=== PATIENT | male | born 1940 | race Caucasian/White ===

== ENCOUNTER 2018-03-27 14:06 | Emergency (ER) | payer MEDICARE ==
[~2018-03-27] VITALS: Ht 188 cm; Wt 118.1 kg
[~2018-03-27 14:06] MED LIST: ALLOPURINOL100 MG PO; AMIODARONE HCL200 MG PO; ASA81 MG PO; ASPIR 8181 MG PO; CARVEDILOL12.5 MG PO; CLOPIDOGREL75 MG PO; FUROSEMIDE40 MG PO; HYDROCODON-ACE1 EA11 PO; HYDROCODONE/AP1 EAC1 PO; ISOSORBIDE MONO60 MG PO; LISINOPRIL5 MG PO; MEXILETINE HCL150 MG PO; NAPROXEN500 M1 PO; NITROQUICK0.4 M1; NITROSTAT0.4 MG SL; PANTOPRAZOLE SO40 MG PO; POTASSIUM CHLO20 ME1 PO; SPIRONOLACTONE50 MG PO; TORSEMIDE10 MG; TORSEMIDE20 MG PO; Z.0.COREG12.5 MG PO; Z.0.FUROSEMIDE20 MG PO; Z.0.KLOR-CON20 MEQ; Z.0.LISINOPRIL20 MG PO; Z.0.PANTOPRAZOLE SO4; Z.0.PLAVIX75 MG PO; Z.0.RANEXA500 MG; Z.1.ALPRAZOLAM0.25 M; Z.1.ISOSORBIDE MONO6 PO; [UNRECOGNIZED DRUG - OTHER]; [UNRECOGNIZED DRUG - OTHER]
== END 2018-03-27 16:00 | disposition home or self-care (01) ==
LOC: FSED 14:06
DX: T16.2XXA Foreign body in left ear, initial encounter (principal); I10 Essential (primary) hypertension; I25.10 Atherosclerotic heart disease of native coronary artery without angina pectoris; I25.2 Old myocardial infarction; Z95.1 Presence of aortocoronary bypass graft; Z95.5 Presence of coronary angioplasty implant and graft; Z95.0 Presence of cardiac pacemaker
CPT/HCPCS: 99282

== ENCOUNTER → 2018-05-25 | Day surgery (SDC) | payer MEDICARE ==
[~2018-05-25] MED LIST changes: +FENTANYL CITRATE/PF 100MCG/2 ML INJ ONE; +MIDAZOLAM HCL 2 MG/2 ML VIAL ONE; +OR PHACO EYE KIT ONE; +PREOP PHACO EYE KIT ONE
== END | disposition home or self-care (01) ==
LOC: OR 11:49
PROVIDERS: ATTEND Ophthalmology
DX: H25.11 Age-related nuclear cataract, right eye (principal); Z79.02 Long term (current) use of antithrombotics/antiplatelets; I11.0 Hypertensive heart disease with heart failure; I50.9 Heart failure, unspecified; G47.33 Obstructive sleep apnea (adult) (pediatric); I25.2 Old myocardial infarction; I25.10 Atherosclerotic heart disease of native coronary artery without angina pectoris; K21.9 Gastro-esophageal reflux disease without esophagitis; N20.0 Calculus of kidney; F41.9 Anxiety disorder, unspecified; Z95.0 Presence of cardiac pacemaker; Z95.1 Presence of aortocoronary bypass graft; Z95.5 Presence of coronary angioplasty implant and graft
CPT/HCPCS: 66984; J2250; V2632

== ENCOUNTER → 2018-06-08 | Day surgery (SDC) | payer MEDICARE ==
[~2018-06-08] MED LIST changes: +HYDRALAZINE HCL 20 MG/ML VIAL ONE
== END | disposition home or self-care (01) ==
LOC: OR 09:52
PROVIDERS: ATTEND Ophthalmology
DX: H25.12 Age-related nuclear cataract, left eye (principal); I11.0 Hypertensive heart disease with heart failure; I50.30 Unspecified diastolic (congestive) heart failure; I25.810 Atherosclerosis of coronary artery bypass graft(s) without angina pectoris; G47.33 Obstructive sleep apnea (adult) (pediatric); E78.5 Hyperlipidemia, unspecified; I25.2 Old myocardial infarction; K21.9 Gastro-esophageal reflux disease without esophagitis; N20.0 Calculus of kidney; F17.210 Nicotine dependence, cigarettes, uncomplicated; Z79.82 Long term (current) use of aspirin; Z79.02 Long term (current) use of antithrombotics/antiplatelets; Z95.1 Presence of aortocoronary bypass graft; Z95.5 Presence of coronary angioplasty implant and graft; Z95.0 Presence of cardiac pacemaker
CPT/HCPCS: 66984; J0360; J2250

== ENCOUNTER 2018-12-31 16:53 | Emergency (ER) | payer MEDICARE ==
[~2018-12-31] VITALS: Ht 188 cm; Wt 117.9 kg
[~2018-12-31 16:53] MED LIST changes: -FENTANYL CITRATE/PF 100MCG/2 ML INJ ONE; -HYDRALAZINE HCL 20 MG/ML VIAL ONE; -MIDAZOLAM HCL 2 MG/2 ML VIAL ONE; -OR PHACO EYE KIT ONE; -PREOP PHACO EYE KIT ONE
--- OUTSIDE RECORDS SUMMARY | 2018-12-31 16:58 | XMS REPORT | Continuity of Care Document ---
Author Author [facility] Interface Address Unknown Phone Unavailable Problems Problem Status Onset Date Classification Date Reported Comments Source CHEST PAIN Active 09/08/2018 [facility] Presence of left artificial knee joint 12/14/2017 03/17/2018 [facility] [place] Z96.652 LEFT TOTAL KNEE REPLACEMENT Active 10/27/2017 [facility] [place] CAD/CMF Active 09/17/2017 [facility] UNK Active 08/10/2017 [facility] CHEST PAIN WITH EKG CHANGES Active 07/02/2016 [facility] Cardiomegaly Active 08/31/2015 Problem 03/27/2018 [facility] Chest pain Active 08/31/2015 Problem 03/27/2018 [facility] Dyspnea Active 08/31/2015 Problem 03/27/2018 [facility] 924.11CONTUSION OF KNEE, LEFT Active 02/16/2015 [facility] Discharge Diagnosis: Contusion of knee, right 02/12/2015 02/14/2015 [facility] Discharge Diagnosis: Abrasions of multiple sites 02/12/2015 02/14/2015 [facility] KNEE PAIN Active 02/10/2015 [facility] 413.9 Active 09/13/2014 [facility] 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 Problem 03/17/2018 [facility] [place] Chest pain on exertion Active Problem 03/17/2018 [facility] [place] Coronary artery disease Active Problem 03/17/2018 [facility] [place] GERD - Gastro-esophageal reflux disease Active Problem 03/17/2018 [facility] [place] Heart attack Resolved Problem 03/17/2018 [facility] [place] Heart failure Active Problem 03/17/2018 [facility] [place] Hypertension Active Problem 03/17/2018 [facility] [place] Premature ventricular contraction Resolved Problem 03/30/2015 [facility] [place] Sleep apnea<sup>1</sup> Active Problem 03/17/2018 uses CPAP [facility] [place] Stent placement<sup>2</sup> Resolved Problem 03/17/2018 x 5 [facility] [place] Pain in left knee 03/17/2018 [facility] [place] Muscle weakness 03/17/2018 [facility] [place] Stiffness of left knee, not elsewhere classified 03/17/2018 [facility] [place] Difficulty in walking, not elsewhere classified 03/17/2018 [facility] [place] Premature ventricular contraction Resolved Problem 03/17/2018 [facility] [place] BI KNEE Active [facility] [place] CHEST PAIN, UNSPECIFIED Active [facility] UNSTABLE ANGINA Active [facility] UNILATERAL PRIMARY OSTEOARTHRITIS, LEFT Active [facility] Medications Medication Details Route Status Patient Instructions Ordering Provider Order Date Source Aspirin 325 MG Enteric Coated Tablet 325 mg=1 tab, PO, BID, 0 Refill(s) Active 10/01/2017 [facility] Acetaminophen 325 MG / Hydrocodone Bitartrate 7.5 MG Oral Tablet [[place] 7.5/325] 1-2 tab, PO, Q6H, PRN Pain, X 14 day, # 50 tab, 0 Refill(s), given to patient Active 10/01/2017 [facility] dexamethasone (ANES) Route: IV, Drug form: INJ, ONCE, Stop date: 09/29/17 10:48:00 [employer] Inactive 09/29/2017 [facility] ondansetron (ANES) Route: IV, Drug form: INJ, ONCE, Stop date: 09/29/17 10:48:00 [employer] Inactive 09/29/2017 [facility] Plavix 75 mg, 1 tab, Route: PO, Drug form: TAB, Daily, Dosing Weight 118.182, kg, Start date: 09/29/17 9:00:00 [employer]ERIAL[employer], Duration: 30 day, Stop date: 10/29/17 8:59:00 CSTNotes: (Same As: Plavix) No Longer Active 09/29/2017 [facility] Lisinopril 2.5 mg, 0.5 tab, Route: PO, Drug form: TAB, Daily, Dosing Weight 118.182, kg, Start date: 09/29/17 9:00:00 [employer]ERIAL[employer] SCI[employer]IST, Duration: 30 day, Stop date: 10/29/17 8:59:00 CSTNotes: (Same as: Prinivil, Zestril) No Longer Active 09/29/2017 [facility] isosorbide mononitrate extended release 60 mg, 2 tab, Route: PO, Drug form: ERTAB, Daily, Dosing Weight 118.182, kg, Start date: 09/29/17 9:00:00 [employer]ERIAL[employer] SCI[employer], Duration: 30 day, Stop date: 10/29/17 8:59:00 S[employer]ERIAL[employer]IST No Longer Active 09/29/2017 [facility] Mexiletine 150 mg, 1 cap, Route: PO, Drug form: CAP, BID, Dosing Weight 118.182, kg, Start date: 09/28/17 21:00:00 [employer], Duration: 30 day, Stop date: 10/28/17 9:00:00 CSTNotes: (Same as: Mexitil) No Longer Active 09/29/2017 [facility] carvedilol 12.5 mg, 1 tab, Route: PO, Drug form: TAB, Q12H, Dosing Weight 118.182, kg, Start date: 09/28/17 21:00:00 [employer]ERIAL[employer] SCI[employer], Duration: 30 day, Stop date: 10/28/17 20:59:00 CSTNotes: Give with food. (Same As: Coreg) No Longer Active 09/29/2017 [facility] Aspirin 325 MG Enteric Coated Tablet 325 mg, 1 tab, Route: PO, Drug form: TAB, BID, Dosing Weight 118.182, kg, Start date: 09/28/17 17:00:00 S[employer]ERIAL[employer] SCI[employer]IST, Duration: 30 day, Stop date: 10/28/17 16:59:00 CSTNotes: Take with food. No Longer Active 09/28/2017 [facility] Docusate Sodium 100 MG Oral Capsule 100 mg, 1 cap, Route: PO, Drug form: CAP, BID, Dosing Weight 118.182, kg, Start date: 09/28/17 17:00:00 S[employer]ERIAL[employer] SCI[employer], Duration: 30 day, Stop date: 10/28/17 16:59:00 CSTNotes: (Same as: Colace) (Do Not Crush) No Longer Active 09/28/2017 [facility] pantoprazole 40 mg, 1 tab, Route: PO, Drug form: ECTAB, Before Dinner, Dosing Weight 118.182, kg, Start date: 09/28/17 16:30:00 [employer] SCI[employer], Duration: 30 day, Stop date: 10/27/17 16:30:00 CSTNotes: Tablet should not be c hewed or crushed. (Same as: Protonix) No Longer Active 09/28/2017 [facility] Cefazolin 1 gm, Route: IV, Q8H, Dosing Weight 118.182, kg, Start date: 09/28/17 16:00:00 [employer] SCI[employer]IST, Duration: 1 doses or times, Stop date: 09/28/17 23:59:00 [employer]ERIAL[employer] SCI[employer]IST, ABX Indication: Surgical ProphylaxisNotes: (Same As: Anc ef, Kefzol) MEDICATION WASTE Product Size: 1000 mg Product Wasted: ___ mg Inactive 09/28/2017 [facility] phenol topical 1.4% spray 1 spray, Route: TOP, PRN, Drug form: SPRY, PRN Sore Throat, Start date: 09/28/17 13:42:00 [employer], Duration: 30 day, Stop date: 10/28/17 13:41:00 CSTNotes: Chloraseptic [place] (Same as: Chloraseptic, Sore Throat [place]) WASTE: F/P - Black; E - Softricity Trash Bin No Longer Active 09/28/2017 [facility] Dilaudid 2 mg, 1 tab, Route: PO, Drug form: TAB, Q3H, PRN Pain Score 7-10, Start date: 09/28/17 10:48:00 [employer] SCI[employer], Duration: 30 day, Stop date: 10/28/17 10:47:00 CSTNotes: (Same as: Dilaudid) No Longer Active 09/28/2017 [facility] Acetaminophen 325 MG / Hydrocodone Bitartrate 7.5 MG Oral Tablet [Winside 7.5/325] 1 tab, Route: PO, Drug Form: TAB, Dosing Weight 118.182, kg, Q4H, PRN Pain Score 4-6, Start date: 09/28/17 9:40:00 [employer] SCI[employer], Duration: 30 day, Stop date: 10/28/17 9:39:00 CSTNotes: Same as W[place] 325-7.5mg Do not exceed 4gm/day of acetaminophen. No Longer Active 09/28/2017 [facility] Dulcolax Laxative 5 mg, 1 tab, Route: PO, Drug form: ECTAB, Q24H, Dosing Weight 118.182, kg, PRN Constipation, Start date: 09/28/17 9:40:00 [employer] SCI[employer], Duration: 30 day, Stop date: 10/28/17 9:39:00 CSTNotes: (Same As: Dulcolax, Correctol) (Do Not Crush) "Do Not Crush" No Longer Active 09/28/2017 [facility] Diphenhydramine 25 mg, 1 tab, Route: PO, Drug form: TAB, Q6H, Dosing Weight 118.182, kg, PRN Itching, Start date: 09/28/17 9:40:00 [employer] SCI[employer], Duration: 30 day, Stop date: 10/28/17 9:39:00 [employer] SCI[employer]IST No Longer Active 09/28/2017 [facility] Al hydroxide/Mg hydroxide/simethicone 200 mg-200 mg-20 mg/5 mL oral suspension 30 ml, Route: PO, Drug Form: SUSP, Dosing Weight 118.182, kg, Q4H, PRN Indigestion, Start date: 09/28/17 9:40:00 [employer] SCI[employer], Duration: 30 day, Stop date: 10/28/17 9:39:00 CSTNotes: (aluminum hydroxide-magnesium hyd- simethicone [id number]/5ml 30 ml ud NIA) No Longer Active 09/28/2017 [facility] Ondansetron 4 mg, 2 mL, Route: IVP, Drug form: INJ, Q8H, Dosing Weight 118.182, kg, PRN Nausea & Vomiting, Start date: 09/28/17 9:40:00 [employer] SCI[employer], Duration: 30 day, Stop date: 10/28/17 9:39:00 CSTNotes: (Same as: [place]) MEDICATION WASTE Product Size: 4 mg Product Wasted: ___ mg No Longer Active 09/28/2017 [facility] Acetaminophen 650 mg, 2 tab, Route: PO, Drug form: TAB, Q4H, Dosing Weight 118.182, kg, PRN Pain 1-3/Temp > 100.4 F, Start date: 09/28/17 9:40:00 [employer] SCI[employer], Duration: 30 day, Stop date: 10/28/17 9:39:00 CSTNotes: Do not exceed 4 gm/day. (Same as: Tylenol) No Longer Active 09/28/2017 [facility] Hydromorphone 0.5 mg, Route: IVP, Q3H, Dosing Weight 118.182, kg, PRN Pain Score 7-10, Start date: 09/28/17 9:40:00 [employer] SCI[employer], Duration: 30 day, Stop date: 10/28/17 9:39:00 [employer] SCI[employer]IST Inactive 09/28/2017 [facility] Lactated Ringers IV 1,000 mL 1,000 mL, Rate: 100 ml/hr, Infuse over: 10 hr, Route: IV, Dosing Weight 118.182 kg, Total Volume: 1,000, Start date: 09/28/17 9:40:00 [employer] SCI[employer], Duration: 30 day, Stop date: 10/28/17 9:39:00 [employer]ERIAL[employer] SCI[employer]IST, 2.5, m2 No Longer Active 09/28/2017 [facility] Tramadol 50 mg, 1 tab, Route: PO, Drug form: TAB, Q4H, Dosing Weight 118.182, kg, PRN Pain Score 4-6, Start date: 09/28/17 9:40:00 [employer] SCI[employer]IST, Duration: 30 day, Stop date: 10/28/17 9:39:00 S[employer]IOR [employer]ERIALS SCIENTIST, ..Notes: Not to exceed 400mg/day. (Same As: Ultram) No Longer Active 09/28/2017 [facility] Promethazine 6.25 mg, Route: IVPB, ONCE, Dosing Weight 118.182, kg, PRN Nausea & Vomiting, Start date: 09/28/17 9:34:00 [employer] SCI[employer]IST No Longer Active 09/28/2017 [facility] Hydromorphone 0.5 mg, Route: IVP, Q5Min, Dosing Weight 118.182, kg, PRN Pain Score 7-10, Start date: 09/28/17 9:34:00 S[employer] SCI[employer]IST, Duration: 4 doses or times, Stop date: Limited # of times No Longer Active 09/28/2017 [facility] Oxycodone 10 mg, Route: PO, Drug form: TAB, Q4H, Dosing Weight 118.182, kg, PRN Pain Score 7-10, Start date: 09/28/17 9:34:00 S[employer] SCI[employer]IST, Duration: 30 day, Stop date: 10/28/17 9:33:00 S[employer]ERIAL[employer] SCI[employer]IST No Longer Active 09/28/2017 [facility] Fentanyl 25 microgram, Route: IVP, Q5Min, Dosing Weight 118.182, kg, PRN Pain Score 4-6, Priority: Routine, Start date: 09/28/17 9:34:00 [employer] SCI[employer]IST, Duration: 4 doses or times, Stop date: Limited # of times No Longer Active 09/28/2017 [facility] Albuterol 0.83 MG/ML Inhalant Solution 2.49 mg, Route: NEB, Q20Min, Dosing Weight 118.182, kg, PRN Wheezing, Priority: Routine, Start date: 09/28/17 9:34:00 [employer] SCI[employer], Duration: 30 day, Stop date: 10/28/17 9:33:00 [employer]ERIAL[employer] SCI[employer]IST No Longer Active 09/28/2017 [facility] Naloxone 0.4 mg, Route: IVP, Q2MIN, Dosing Weight 118.182, kg, PRN Narcotic Reversal, Start date: 09/28/17 9:34:00 S[employer]ERIAL[employer] SCI[employer]IST, Duration: 8 doses or times, Stop date: Limited # of times No Longer Active 09/28/2017 [facility] Flumazenil 0.2 mg, Route: IVP, PRN, Dosing Weight 118.182, kg, PRN Benzodiazepine Reversal, Initial dose, Start date: 09/28/17 9:34:00 S[employer] SCI[employer]IST, Duration: 30 day, Stop date: 10/28/17 9:33:00 SENIOR MATERIALS SCIENTIST No Longer Active 09/28/2017 [facility] Ondansetron 4 mg, Route: IVP, ONCE, Dosing Weight 118.182, kg, PRN Nausea & Vomiting, Start date: 09/28/17 9:34:00 S[employer]ERIAL[employer] SCI[employer]IST No Longer Active 09/28/2017 [facility] Meperidine 12.5 mg, Route: IVP, Q30Min, Dosing Weight 118.182, kg, PRN Other -See Comment, For shivering, Start date: 09/28/17 9:34:00 S[employer]ERIAL[employer] SCI[employer]IST, Duration: 2 doses or times, Stop date: Limited # of times No Longer Active 09/28/2017 [facility] Diphenhydramine 12.5 mg, Route: IVP, Drug form: INJ, Q6H, Dosing Weight 118.182, kg, PRN Itching, Start date: 09/28/17 9:34:00 S[employer]ERIAL[employer] SCI[employer]IST, Duration: 30 day, Stop date: 10/28/17 9:33:00 S[employer]ERIAL[employer] SCI[employer]IST No Longer Active 09/28/2017 [facility] Acetaminophen 1,000 mg, Route: IV, ONCE, Dosing Weight 118.182, kg, PRN Pain Score 1-3, Start date: 09/28/17 9:34:00 S[employer]ERIAL[employer] SCI[employer]IST Inactive 09/28/2017 [facility] Labetalol 10 mg, Route: IVP, Q5Min, Dosing Weight 118.182, kg, PRN Elevated BP, Start date: 09/28/17 9:34:00 S[employer]ERIAL[employer] SCI[employer]IST, Duration: 5 doses or times, Stop date: Limited # of times No Longer Active 09/28/2017 [facility] Ketorolac 30 mg, Route: IVP, ONCE, Dosing Weight 118.182, kg, Start date: 09/28/17 9:34:00 S[employer]ERIALS SCI[employer]IST, Stop date: 09/28/17 9:34:00 SENIOR MATERIALS SCIENTIST No Longer Active 09/28/2017 [facility] Hydralazine 10 mg, Route: IVP, Q20Min, Dosing Weight 118.182, kg, PRN Elevated BP, Start date: 09/28/17 9:34:00 S[employer]IOR [employer]ERIALS SCI[employer]IST, Duration: 2 doses or times, Stop date: Limited # of times No Longer Active 09/28/2017 [facility] neostigmine (ANES) Route: IV, Drug form: INJ, ONCE, Stop date: 09/28/17 9:21:00 S[employer]IOR [employer]ERIALS SCI[employer]IST Inactive 09/28/2017 [facility] glycopyrrolate (ANES) Route: IV, Drug form: INJ, ONCE, Stop date: 09/28/17 9:21:00 S[employer]IOR MATERIALS SCI[employer]IST Inactive 09/28/2017 [facility] ondansetron (ANES) Route: IV, Drug form: INJ, ONCE, Stop date: 09/28/17 9:21:00 S[employer]IOR MATERIALS SCI[employer]IST Inactive 09/28/2017 [facility] rocuronium (ANES) Route: IV, Drug form: INJ, ONCE, Stop date: 09/28/17 8:12:00 SENIOR MATERIALS SCIENTIST Inactive 09/28/2017 [facility] propofol (ANES) Route: IV, Drug form: INJ, ONCE, Stop date: 09/28/17 8:12:00 SENIOR MATERIALS SCIENTIST Inactive 09/28/2017 [facility] fentaNYL (ANES) Route: IV, Drug form: INJ, ONCE, Stop date: 09/28/17 8:11:00 SENIOR MATERIALS SCIENTIST Inactive 09/28/2017 [facility] lidocaine (ANES) Route: IV, Drug form: INJ, ONCE, Stop date: 09/28/17 8:11:00 SENIOR MATERIALS SCIENTIST Inactive 09/28/2017 [facility] midazolam (ANES) Route: IV, Drug form: SOLN, ONCE, Stop date: 09/28/17 8:06:00 SENIOR MATERIALS SCIENTIST Inactive 09/28/2017 [facility] ceFAZolin (ANES) 1000 mg Route: IV, Drug form: INJ, Start date: 09/28/17 7:51:00 SENIOR MATERIALS SCIENTIST, Stop date: 09/28/17 8:51:00 SENIOR MATERIALS SCIENTIST Inactive 09/28/2017 [facility] Lactated Ringers Injection IV (ANES) 1000 mL Route: IV, Total Volume: 1,000, Start date: 09/28/17 7:37:00 SENIOR MATERIALS SCIENTIST, Stop date: 09/28/17 8:37:00 SENIOR MATERIALS SCIENTIST Inactive 09/28/2017 [facility] Amiodarone 200 mg, 0 Refill(s) Inactive 09/28/2017 [facility] Allopurinol 400 mg, 0 Refill(s) Inactive 09/28/2017 [facility] Calcium Chloride 0.0014 MEQ/ML / Potassium Chloride 0.004 MEQ/ML / Sodium Chloride 0.103 MEQ/ML / Sodium Lactate 0.028 MEQ/ML Injectable Solution 1,000 mL, Rate: 25 ml/hr, Infuse over: 40 hr, Route: IV, Dosing Weight 118.182 kg, Total Volume: 1,000, Start date: 09/28/17 7:13:00 S[employer]ERIALS SCI[employer]IST, Duration: 30 day, Stop date: 10/28/17 7:12:00 S[employer]IOR MATERIALS SCIENTIST, 2.5, m2 Inactive 09/28/2017 [facility] Sodium Chloride 0.9% IV 1000 mL 1,000 mL, Rate: 25 ml/hr, Infuse over: 40 hr, Route: IV, Dosing Weight 118.182 kg, Total Volume: 1,000, Start date: 09/28/17 7:13:00 S[employer]ERIALS SCI[employer]IST, Duration: 30 day, Stop date: 10/28/17 7:12:00 S[employer]IOR MATERIALS SCIENTIST, 2.5, m2 Inactive 09/28/2017 [facility] ropivacaine 100 mL, Route: InFILtration(local), Drug Form: INJ, Dosing Weight 118.182, kg, ONCALL, Start date: 09/28/17 7:00:00 SENIOR MATERIALS SCIENTIST, Duration: 1 doses or timesNotes: NOT FOR IV use Ropivacaine 5 mg/mL (4 9.25 mL) Epinephrine 1 mg/mL (0.5 mL) Clonidine 0.1 mg/mL (0.8 mL) Ketorolac 30 mg/mL (1 mL) Normal Saline 48.45 mL No Longer Active 09/28/2017 [facility] Allopurinol 100 Mg Tablet, 40 Mg Oral Daily Active 06/16/2017 [facility] Potassium Chloride 20 Meq Tab.er.prt, 20 Meq Oral Daily Active 06/16/2017 [facility] Carvedilol 12.5 Mg Tablet, 6.25 Mg Oral Twice A Day Active 06/13/2017 [facility] Furosemide 40 Mg Tablet, 120 Mg Oral Daily Active 06/13/2017 [facility] Naproxen 500 Mg Tablet.dr, 500 Mg Oral Twice A Day Active 06/13/2017 [facility] Benadryl 25 mg, 1 tab, Route: PO, Drug form: TAB, Q6H, Dosing Weight 118.182, kg, PRN as needed for itching, Start date: 02/03/17 3:05:00 CDT, Duration: 30 day, Stop date: 03/05/17 3:04:00 CDT Inactive 02/03/2017 [facility] Lisinopril 20 mg, 1 tab, Route: PO, Drug form: TAB, Daily, Dosing Weight 118.182, kg, Priority: NOW, Start date: 02/01/17 12:38:00 CDT, Duration: 30 day, Stop date: 03/03/17 9:00:00 CDTNotes: (Same as: Prinivil, Zestril) No Longer Active 02/01/2017 [facility] Labetalol 20 mg, 4 mL, Route: IVP, Drug form: INJ, Q2H, Dosing Weight 118.182, kg, PRN Hypertension, Start date: 02/01/17 12:36:00 CDT, Duration: 30 day, Stop date: 03/03/17 12:35:00 CDTNotes: (Same as: Normodyne, Trandate) Push over 2 minutes Give bolus over 2-3 minutes. No Longer Active 02/01/2017 [facility] torsemide 20 mg, 1 tab, Route: PO, Drug form: TAB, DOHO42P, Dosing Weight 118.182, kg, Start date: 02/01/17 9:00:00 CDT, Duration: 30 day, Stop date: 03/01/17 9:00:00 CDTNotes: (Same As: Demadex) No Longer Active 02/01/2017 [facility] Saline Flush 0.9% 10 ml, Route: IVP, Drug Form: INJ, Dosing Weight 118.182, kg, Q12H, Start date: 02/01/17 9:00:00 CDT, Duration: 30 day, Stop date: 03/02/17 21:00:00 CDTNotes: (Same as: BD Posiflush) No Longer Active 02/01/2017 [facility] potassium chloride 20 mEq, 1 tab, Route: PO, Drug form: ERTAB, Daily, Dosing Weight 118.182, kg, Start date: 02/01/17 9:00:00 CDT, Duration: 30 day, Stop date: 03/02/17 9:00:00 CDTNotes: (Same as: K-Dur 20) "Do Not Crush" With food and full glass of water No Longer Active 02/01/2017 [facility] Ranexa 1,000 mg, 2 tab, Route: PO, Drug form: TAB, BID, Dosing Weight 118.182, kg, Start date: 02/01/17 9:00:00 CDT, Duration: 30 day, Stop date: 03/02/17 17:00:00 CDTNotes: Same as Ranexa "Do Not Crush" No Longer Active 02/01/2017 [facility] pantoprazole 40 mg, 1 tab, Route: PO, Drug form: ECTAB, Daily, Dosing Weight 118.182, kg, Start date: 02/01/17 9:00:00 CDT, Duration: 30 day, Stop date: 03/02/17 9:00:00 CDTNotes: Tablet should not be chewed or c rushed. (Same as: Protonix) No Longer Active 02/01/2017 [facility] Mexiletine 150 mg, 1 cap, Route: PO, Drug form: CAP, BID, Dosing Weight 118.182, kg, Start date: 02/01/17 9:00:00 CDT, Duration: 30 day, Stop date: 03/02/17 17:00:00 CDTNotes: (Same as: Mexitil) No Longer Active 02/01/2017 [facility] Lisinopril 2.5 mg, 0.5 tab, Route: PO, Drug form: TAB, Daily, Dosing Weight 118.182, kg, Start date: 02/01/17 9:00:00 CDT, Duration: 30 day, Stop date: 03/02/17 9:00:00 CDTNotes: (Same as: Prinivil, Zestril) Inactive 02/01/2017 [facility] isosorbide mononitrate extended release 60 mg, 2 tab, Route: PO, Drug form: ERTAB, Daily, Dosing Weight 118.182, kg, Start date: 02/01/17 9:00:00 CDT, Duration: 30 day, Stop date: 03/02/17 9:00:00 CDTNotes: (Same as:Imdur) "Do Not Crush" Take on empty stomach/ full glass of water. Do not crush No Longer Active 02/01/2017 [facility] clopidogrel 75 mg, 1 tab, Route: PO, Drug form: TAB, Daily, Dosing Weight 118.182, kg, Start date: 02/01/17 9:00:00 CDT, Duration: 30 day, Stop date: 03/02/17 9:00:00 CDTNotes: (Same As: Plavix) No Longer Active 02/01/2017 [facility] carvedilol 6.25 mg, 2 tab, Route: PO, Drug form: TAB, Q12H, Dosing Weight 118.182, kg, Start date: 02/01/17 9:00:00 CDT, Duration: 30 day, Stop date: 03/02/17 21:00:00 CDTNotes: Give with food. (Same As: Coreg) No Longer Active 02/01/2017 [facility] aspirin 81 mg tablet, enteric coated 81 mg, 1 tab, Route: PO, Drug form: ECTAB, Daily, Dosing Weight 118.182, kg, Start date: 02/01/17 9:00:00 CDT, Duration: 30 day, Stop date: 03/02/17 9:00:00 CDTNotes: Do not crush or chew. (Same As: Ecotrin) No Longer Active 02/01/2017 [facility] sodium chloride 0.9% 1000 ml INJ 1,000 mL 1,000 mL, Rate: 75 ml/hr, Infuse over: 13.3 hr, Route: IV, Dosing Weight 118.182 kg, Total Volume: 1,000, Start date: 02/01/17 8:24:00 CDT, Duration: 30 day, Stop date: 03/03/17 8:23:00 CDT No Longer Active 02/01/2017 [facility] Acetaminophen 325 MG / Hydrocodone Bitartrate 7.5 MG Oral Tablet 1 tab, Route: PO, Drug Form: TAB, Dosing Weight 118.182, kg, Q4H, PRN Pain Score 4-6, Start date: 02/01/17 8:09:00 CDT, Duration: 30 day, Stop date: 03/03/17 8:08:00 CDTNotes: Same as [place] 325-7.5mg Do not exceed 4gm/day of acetaminophen. No Longer Active 02/01/2017 [facility] Benadryl 25 mg, 0.5 mL, Route: IVP, Drug form: INJ, ONCE, Dosing Weight 118.182, kg, PRN Itching, Start date: 02/01/17 5:25:00 CDTNotes: (Same as: Benadryl) Inactive 02/01/2017 [facility] Saline Flush 0.9% 10 ml, Route: IVP, Drug Form: INJ, Dosing Weight 118.182, kg, PRN, PRN Line Flush, Start date: 02/01/17 3:37:00 CDT, Duration: 30 day, Stop date: 03/03/17 3:36:00 CDTNotes: (Same as: BD Posiflush) No Longer Active 02/01/2017 [facility] Sodium Chloride 0.154 MEQ/ML Injectable Solution 1,000 mL, Rate: 75 ml/hr, Infuse over: 13.3 hr, Route: IV, Dosing Weight 118.182 kg, Total Volume: 1,000, Start date: 02/01/17 3:37:00 CDT, Duration: 30 day, Stop date: 03/03/17 3:36:00 CDT No Longer Active 02/01/2017 [facility] Ondansetron 4 mg, 1 tab, Route: PO, Drug form: TAB, Q8H, Dosing Weight 118.182, kg, PRN Nausea & Vomiting, Start date: 02/01/17 3:37:00 CDT, Duration: 30 day, Stop date: 03/03/17 3:36:00 CDTNotes: (Same as: Zofran) No Longer Active 02/01/2017 [facility] Morphine 2 mg, 1 mL, Route: IVP, Drug form: INJ, Q15Min, Dosing Weight 118.182, kg, PRN Chest Pain, Start date: 02/01/17 3:37:00 CDT, Duration: 2 doses or times, Stop date: Limited # of timesNotes: (Same as:M ORPhine Sulfate) No Longer Active 02/01/2017 [facility] Nitroglycerin 0.4 mg, 1 tab, Route: SL, Drug form: TAB, Q5Min, Dosing Weight 118.182, kg, PRN Chest Pain, Start date: 02/01/17 3:37:00 CDT, Duration: 3 doses or times, Stop date: Limited # of timesNotes: (Same as: Nitroquick, Nitrostat) "Do Not Crush" Sublingual tablet No Longer Active 02/01/2017 [facility] Aspirin 325 MG Oral Tablet 325 mg, 1 tab, Route: PO, Drug form: TAB, ONCE, Dosing Weight 118.182, kg, Start date: 02/01/17 3:37:00 CDT, Stop date: 02/01/17 3:37:00 CDTNotes: Take with food. Inactive 02/01/2017 [facility] Nitroglycerin 0.4 MG Sublingual Tablet 0.4 mg, 1 tab, Route: SL, Drug form: TAB, Q5Min, Dosing Weight 118.182, kg, PRN Chest Pain, Start date: 02/01/17 2:14:00 CDT, Duration: 30 day, Stop date: 03/03/17 2:13:00 CDTNotes: (Same as:Nitroquick, Nitrostat) "Do Not Crush" Sublingual tablet No Longer Active 02/01/2017 [facility] Morphine 2 mg, 1 mL, Route: IVP, Drug form: INJ, ONCE, Dosing Weight 118.182, kg, Priority: STAT, Start date: 02/01/17 2:12:00 CDT, Stop date: 02/01/17 2:12:00 CDTNotes: (Same as:MORPhine Sulfate) Inactive 02/01/2017 [facility] Ondansetron 4 mg, Route: IVP, Drug form: INJ, ONCE, Dosing Weight 118.182, kg, Priority: STAT, Start date: 02/01/17 0:17:00 CDT, Stop date: 02/01/17 0:17:00 CDT Inactive 02/01/2017 [facility] Morphine 4 mg, Route: IVP, ONCE, Dosing Weight 118.182, kg, Priority: STAT, Start date: 02/01/17 0:17:00 CDT, Stop date: 02/01/17 0:17:00 CDT Inactive 02/01/2017 [facility] Nitroglycerin 0.02 MG/MG Topical Ointment 1 inch, Route: TOP, Dosing Weight 118.182, kg, ONCE, STAT, Start date: 02/01/17 0:15:00 CDT, Stop date: 02/01/17 0:15:00 CDT Inactive 02/01/2017 [facility] Saline Flush 0.9% 10 mL, Route: IVP, Drug Form: INJ, Dosing Weight 118.182, kg, PRN, PRN Line Flush, Start date: 01/31/17 23:23:00 CDT, Duration: 30 day, Stop date: 03/02/17 23:22:00 CDTNotes: (Same as: BD Posiflush) No Longer Active 02/01/2017 [facility] Nitroglycerin 0.4 mg, 1 tab, Route: SL, Drug form: TAB, Q5Min, Dosing Weight 118.182, kg, PRN Chest Pain, Start date: 09/23/16 8:12:00 [employer] SCI[employer]IST, Duration: 3 doses or times, Stop date: Limited # of timesNotes: (Same as: Nitroquick, Nitrostat) "Do Not Crush" Sublingual tablet Inactive 09/23/2016 [facility] Morphine 4 mg, 2 mL, Route: IVP, Drug form: INJ, Q2H, Dosing Weight 118.182, kg, PRN Pain Score 7-10, Start date: 09/23/16 8:12:00 [employer]ERIALS SCI[employer]IST, Stop date: 10/23/16 8:11:00 CSTNotes: (Same as:MORPhine Sulfate) Inactive 09/23/2016 [facility] Sodium Chloride 0.154 MEQ/ML Injectable Solution 750 mL, Rate: 75 ml/hr, Infuse over: 10 hr, Route: IV, Dosing Weight 118.182 kg, Total Volume: 750, Start date: 09/23/16 8:12:00 S[employer]IOR [employer]ERIALS SCI[employer]IST, Duration: 10 hr, Stop date: 09/23/16 18:11:00 S[employer]IOR MATERIALS SCIENTIST Inactive 09/23/2016 [facility] 12 HR ranolazine 1000 MG Extended Release Tablet [Ranexa] 1,000 mg=1 tab, PO, BID, # 60 tab, 0 Refill(s) Active 09/23/2016 [facility] Amiodarone 200 mg, 1 tab, Route: PO, Drug form: TAB, Daily, Dosing Weight 118.182, kg, Start date: 09/22/16 20:00:00 [employer]ERIAL[employer] SCI[employer]IST, Duration: 30 day, Stop date: 10/21/16 20:00:00 CSTNotes: (Same as: Cordarone) No Longer Active 09/23/2016 [facility] pantoprazole 40 mg, 1 tab, Route: PO, Drug form: ECTAB, After Dinner, Dosing Weight 118.182, kg, Start date: 09/22/16 17:00:00 S[employer]IOR MATERIALS SCIENTIST, Duration: 30 day, Stop date: 10/21/16 17:00:00 CSTNotes: Tablet should not be ch ewed or crushed. (Same as: Protonix) No Longer Active 09/22/2016 [facility] torsemide 20 mg, 1 tab, Route: PO, Drug form: TAB, Daily, Dosing Weight 118.182, kg, Start date: 09/22/16 9:00:00 S[employer]ERIALS SCI[employer]IST, Duration: 30 day, Stop date: 10/21/16 9:00:00 CSTNotes: (Same As: Demadex) No Longer Active 09/22/2016 [facility] Mexiletine 150 mg, 1 cap, Route: PO, Drug form: CAP, BID, Dosing Weight 118.182, kg, Start date: 09/22/16 9:00:00 S[employer]ERIALS SCIENTIST, Duration: 30 day, Stop date: 10/21/16 17:00:00 CSTNotes: (Same as: Mexitil) No Longer Active 09/22/2016 [facility] Lisinopril 2.5 mg, 0.5 tab, Route: PO, Drug form: TAB, Daily, Dosing Weight 118.182, kg, Start date: 09/22/16 9:00:00 [employer]ERIAL[employer] SCI[employer]IST, Duration: 30 day, Stop date: 10/21/16 9:00:00 CSTNotes: (Same as: Prinivil, Zestril) No Longer Active 09/22/2016 [facility] isosorbide mononitrate extended release 60 mg, 2 tab, Route: PO, Drug form: ERTAB, Daily, Dosing Weight 118.182, kg, Start date: 09/22/16 9:00:00 S[employer]ERIAL[employer] SCI[employer]IST, Duration: 30 day, Stop date: 10/21/16 9:00:00 CSTNotes: (Same as:Imdur) "Do Not Crush" Take on empty stomach/ full glass of water. Do not crush No Longer Active 09/22/2016 [facility] clopidogrel 75 mg, 1 tab, Route: PO, Drug form: TAB, Daily, Dosing Weight 118.182, kg, Start date: 09/22/16 9:00:00 S[employer]IOR [employer]ERIALS SCI[employer]IST, Duration: 30 day, Stop date: 10/21/16 9:00:00 CSTNotes: (Same As: Plavix) No Longer Active 09/22/2016 [facility] carvedilol 6.25 mg, 0.5 tab, Route: PO, Drug form: TAB, Q12H, Dosing Weight 118.182, kg, Start date: 09/22/16 9:00:00 [employer]ERIAL[employer] SCI[employer]IST, Duration: 30 day, Stop date: 10/21/16 21:00:00 CSTNotes: Give with food. (Same As: Coreg) No Longer Active 09/22/2016 [facility] Aspirin 81 MG Enteric Coated Tablet 81 mg, 1 tab, Route: PO, Drug form: ECTAB, Daily, Dosing Weight 118.182, kg, Start date: 09/22/16 9:00:00 S[employer]IOR [employer]ERIALS SCIENTIST, Duration: 30 day, Stop date: 10/21/16 9:00:00 CSTNotes: Do not crush or chew. (Same As: Ecotrin) No Longer Active 09/22/2016 [facility] potassium chloride 20 mEq, 1 tab, Route: PO, Drug form: ERTAB, After Breakfast, Dosing Weight 118.182, kg, Start date: 09/22/16 8:30:00 S[employer]ERIALS SCIENTIST, Duration: 30 day, Stop date: 10/21/16 8:30:00 CSTNotes: (Same as: K-Dur 20) "Do Not Crush" With food and full glass of water No Longer Active 09/22/2016 [facility] Tramadol 50 mg, 1 tab, Route: PO, Drug form: TAB, Q6H, Dosing Weight 118.182, kg, PRN Pain Score 4-6, Start date: 09/21/16 21:22:00 [employer]ERIAL[employer] SCI[employer]IST, Duration: 30 day, Stop date: 10/21/16 21:21:00 CSTNotes: Not to exceed 400mg/day. (Same As: Ultram) No Longer Active 09/22/2016 [facility] Enoxaparin 40 mg, 0.4 mL, Route: SUB-Q, Drug form: INJ, [id number], Dosing Weight 118.182, kg, Start date: 09/21/16 14:00:00 [employer] SCI[employer]IST, Duration: 30 day, Stop date: 10/20/16 14:00:00 CSTNotes: (Same as: Lovenox) No Longer Active 09/21/2016 [facility] sodium chloride 0.9% 1000 ml INJ 1,000 mL 1,000 mL, Rate: 75 ml/hr, Infuse over: 13.3 hr, Route: IV, Dosing Weight 118.182 kg, Total Volume: 1,000, Start date: 09/21/16 13:47:00 [employer] SCI[employer]IST, Duration: 30 day, Stop date: 10/21/16 13:46:00 S[employer]IOR [employer]ERIAL[employer] SCIENTIST No Longer Active 09/21/2016 [facility] Acetaminophen 650 mg, 2 tab, Route: PO, Drug form: TAB, Q4H, Dosing Weight 118.182, kg, PRN Pain 1-3/Temp > 100.4 F, Start date: 09/21/16 11:43:00 S[employer]ERIALS SCI[employer]IST, Duration: 30 day, Stop date: 10/21/16 11:42:00 CSTNotes: Do not exceed 4 gm/day. (Same as: Tylenol) No Longer Active 09/21/2016 [facility] Morphine 2 mg, 1 mL, Route: IVP, Drug form: INJ, Q4H, Dosing Weight 118.182, kg, PRN Pain Score 7-10, Start date: 09/21/16 11:43:00 S[employer]ERIALS SCI[employer]IST, Duration: 30 day, Stop date: 10/21/16 11:42:00 CSTNotes: (Same as:MORPhine Sulfate) No Longer Active 09/21/2016 [facility] Ondansetron 4 mg, 2 mL, Route: IVP, Drug form: INJ, Q6H, Dosing Weight 118.182, kg, PRN Nausea & Vomiting, Start date: 09/21/16 11:43:00 S[employer]ERIALS SCIENTIST, Duration: 30 day, Stop date: 10/21/16 11:42:00 CSTNotes: (Same as: Zofran) MEDICATION WASTE Product Size: 4 mg Product Wasted: ___ mg No Longer Active 09/21/2016 [facility] Docusate 100 mg, 1 cap, Route: PO, Drug form: CAP, BID, Dosing Weight 118.182, kg, PRN Constipation, Start date: 09/21/16 11:43:00 S[employer]IOR [employer]ERIALS SCIENTIST, Duration: 30 day, Stop date: 10/21/16 11:42:00 CSTNotes: (Same as: Colace) (Do Not Crush) No Longer Active 09/21/2016 [facility] Morphine 4 mg, Route: IVP, ONCE, Dosing Weight 118.182, kg, Start date: 09/21/16 9:48:00 S[employer]IOR [employer]ERIALS SCIENTIST, Stop date: 09/21/16 9:48:00 SENIOR MATERIALS SCIENTIST Inactive 09/21/2016 [facility] Lovenox 120 mg, Route: SUB-Q, Drug form: INJ, ONCE, Dosing Weight 118.182, kg, Priority: STAT, Start date: 09/21/16 9:22:00 SENIOR MATERIALS SCIENTIST, Stop date: 09/21/16 9:22:00 SENIOR MATERIALS SCIENTIST Inactive 09/21/2016 [facility] Benadryl 12.5 mg, Route: IVP, ONCE, Dosing Weight 118.182, kg, Priority: STAT, Start date: 09/21/16 7:09:00 SENIOR MATERIALS SCIENTIST, Stop date: 09/21/16 7:09:00 SENIOR MATERIALS SCIENTIST Inactive 09/21/2016 [facility] Sodium Chloride 0.154 MEQ/ML Injectable Solution 500 mL, 500 ml/hr, Infuse Over: 1 hr, Route: IV, ONCE, Priority: STAT, Dosing Weight 118.182 kg, Start date: 09/21/16 7:09:00 SENIOR MATERIALS SCIENTIST, Duration: 1 doses or times, Stop date: 09/21/16 7:09:00 SENIOR MATERIALS SCIENTIST Inactive 09/21/2016 [facility] Morphine 4 mg, Route: IVP, ONCE, Dosing Weight 118.182, kg, Priority: STAT, Start date: 09/21/16 7:09:00 SENIOR MATERIALS SCIENTIST, Stop date: 09/21/16 7:09:00 SENIOR MATERIALS SCIENTIST Inactive 09/21/2016 [facility] Ondansetron 4 mg, Route: IVP, ONCE, Dosing Weight 118.182, kg, Priority: STAT, Start date: 09/21/16 7:09:00 SENIOR MATERIALS SCIENTIST, Stop date: 09/21/16 7:09:00 SENIOR MATERIALS SCIENTIST Inactive 09/21/2016 [facility] Nitroglycerin 0.4 mg, 1 tab, Route: SL, Drug form: TAB, Q5Min, Dosing Weight 118.182, kg, PRN Chest Pain, Start date: 09/21/16 7:09:00 S[employer]IOR MATERIALS SCIENTIST, Duration: 3 doses or times, Stop date: 10/21/16 0:00:00 CSTNotes: (Same a s:Nitroquick, Nitrostat) "Do Not Crush" Sublingual tablet No Longer Active 09/21/2016 [facility] Saline Flush 0.9% 10 mL, Route: IVP, Drug Form: INJ, Dosing Weight 118.182, kg, PRN, PRN Line Flush, Start date: 09/21/16 7:09:00 SENIOR MATERIALS SCIENTIST, Duration: 30 day, Stop date: 10/21/16 7:08:00 CSTNotes: (Same as: BD Posiflush) No Longer Active 09/21/2016 [facility] isosorbide mononitrate extended release 60 mg, 2 tab, Route: PO, Drug form: ERTAB, QAM, Dosing Weight 117.358, kg, Start date: 07/04/16 9:00:00 CDT, Duration: 30 day, Stop date: 08/02/16 9:00:00 CDTNotes: (Same as:Imdur) "Do Not Crush" Take on empty stomach/ full glass of water. Do not crush Inactive 07/04/2016 [facility] Plavix 75 mg, 1 tab, Route: PO, Drug form: TAB, Daily, Dosing Weight 117.358, kg, Start date: 07/04/16 9:00:00 CDT, Duration: 30 day, Stop date: 08/02/16 9:00:00 CDTNotes: (Same As: Plavix) Inactive 07/04/2016 [facility] Amiodarone 200 mg, 1 tab, Route: PO, Drug form: TAB, Daily, Dosing Weight 117.358, kg, Start date: 07/04/16 9:00:00 CDT, Duration: 30 day, Stop date: 08/02/16 9:00:00 CDTNotes: (Same as: Cordarone) Inactive 07/04/2016 [facility] pantoprazole 40 mg, 1 tab, Route: PO, Drug form: ECTAB, Before Breakfast, Dosing Weight 117.358, kg, Start date: 07/04/16 7:30:00 CDT, Duration: 30 day, Stop date: 08/02/16 7:30:00 CDTNotes: Tablet should not be chewed or crushed. (Same as: Protonix) Inactive 07/04/2016 [facility] carvedilol 12.5 mg, 1 tab, Route: PO, Drug form: TAB, Q12H, Dosing Weight 117.358, kg, Start date: 07/03/16 21:00:00 CDT, Duration: 30 day, Stop date: 08/02/16 9:00:00 CDTNotes: Give with food. (Same As: Coreg) No Longer Active 07/04/2016 [facility] Mexiletine 150 mg, 1 cap, Route: PO, Drug form: CAP, Q12H, Dosing Weight 117.358, kg, Start date: 07/03/16 21:00:00 CDT, Duration: 30 day, Stop date: 08/02/16 9:00:00 CDTNotes: (Same as: Mexitil) No Longer Active 07/04/2016 [facility] Vitamin A 3000 iu, PO, Daily, 0 Refill(s) Active 07/03/2016 [facility] mexiletine 150 mg oral capsule 150 mg=1 cap, PO, BID, 0 Refill(s) Active 07/03/2016 [facility] Vitamin D3 5000 intl units oral capsule 5,000 IntlUnit=1 cap, PO, Daily, # 30 cap, 1 Refill(s) Active 07/03/2016 [facility] AMIODarone 200 mg oral tablet 200 mg=1 tab, PO, Daily, patient takes this dose art 8pm, 0 Refill(s) Active 07/03/2016 [facility] Aspirin 81 MG Enteric Coated Tablet 81 mg=1 tab, PO, Daily, # 90 tab, 3 Refill(s) Active 07/03/2016 [facility] Diphenhydramine 25 mg, 1 tab, Route: PO, Drug form: TAB, Bedtime, Dosing Weight 117.358, kg, PRN Insomnia, Start date: 07/03/16 13:20:00 CDT, Duration: 30 day, Stop date: 08/02/16 13:19:00 CDT No Longer Active 07/03/2016 [facility] Acetaminophen 325 MG / Hydrocodone Bitartrate 5 MG Oral Tablet 1 tab, Route: PO, Drug Form: TAB, Dosing Weight 117.358, kg, Q4H, PRN Pain Score 4-6, Start date: 07/03/16 13:20:00 CDT, Duration: 30 day, Stop date: 08/02/16 13:19:00 CDTNotes: (Same as: Winside 325/5) Do not exceed 4gm/day of acetaminophen. No Longer Active 07/03/2016 [facility] Nitroglycerin 0.4 mg, 1 tab, Route: SL, Drug form: TAB, Q5Min, Dosing Weight 117.358, kg, PRN Chest Pain, Start date: 07/03/16 13:20:00 CDT, Duration: 3 doses or times, Stop date: Limited # of timesNotes: (Same as :Nitroquick, Nitrostat) "Do Not Crush" Sublingual tablet No Longer Active 07/03/2016 [facility] Morphine 4 mg, 2 mL, Route: IVP, Drug form: INJ, Q2H, Dosing Weight 117.358, kg, PRN Pain Score 7-10, Start date: 07/03/16 13:20:00 CDT, Duration: 30 day, Stop date: 08/02/16 13:19:00 CDTNotes: (Same as:MORPhine Sulfate) No Longer Active 07/03/2016 [facility] Sodium Chloride 0.154 MEQ/ML Injectable Solution 250 mL, 250 ml/hr, Infuse Over: 1 hr, Route: IV, 250, Drug form: INJ, ONCE, Dosing Weight 117.358 kg, Start date: 07/03/16 13:20:00 CDT, Duration: 1 doses or times, Stop date: 07/03/16 13:20:00 CDT Inactive 07/03/2016 [facility] Sodium Chloride 0.154 MEQ/ML Injectable Solution 250 mL, 250 ml/hr, Infuse Over: 1 hr, Route: IV, 250, Drug form: INJ, ONCALL, Priority: Routine, Dosing Weight 117.358 kg, Start date: 07/03/16 10:00:00 CDT, Duration: 1 doses or times Inactive 07/03/2016 [facility] Enoxaparin 40 mg, 0.4 mL, Route: SUB-Q, Drug form: INJ, [id number], Dosing Weight 117.358, kg, Start date: 07/03/16 10:00:00 CDT, Duration: 30 day, Stop date: 08/01/16 10:00:00 CDTNotes: (Same as: Lovenox) No Longer Active 07/03/2016 [facility] Sodium Chloride 0.154 MEQ/ML Injectable Solution 750 mL, Rate: 75 ml/hr, Infuse over: 10 hr, Route: IV, Dosing Weight 117.358 kg, Total Volume: 750, Start date: 07/03/16 9:03:00 CDT, Duration: 10 hr, Stop date: 07/03/16 19:02:00 CDT Inactive 07/03/2016 [facility] Saline Flush 0.9% 10 ml, Route: IVP, Drug Form: INJ, Dosing Weight 117.358, kg, Q12H, Start date: 07/03/16 9:00:00 CDT, Duration: 30 day, Stop date: 08/01/16 21:00:00 CDT Inactive 07/03/2016 [facility] Nitroglycerin 0.4 mg, 1 tab, Route: SL, Drug form: TAB, Q5Min, Dosing Weight 117.358, kg, PRN Chest Pain, Start date: 07/03/16 9:00:00 CDT, Duration: 3 doses or times, Stop date: Limited # of timesNotes: (Same as: Nitroquick, Nitrostat) "Do Not Crush" Sublingual tablet Inactive 07/03/2016 [facility] Benadryl 50 mg, 1 cap, Route: PO, Drug form: CAP, TID, Dosing Weight 117.358, kg, PRN Itching, give dose NOW, Start date: 07/03/16 7:49:00 CDT, Duration: 30 day, Stop date: 08/02/16 7:48:00 CDTNotes: (Same as: Benadryl) No Longer Active 07/03/2016 [facility] Nitroglycerin 0.02 MG/MG Topical Ointment 0.5 inch, Route: TOP, Drug Form: OINT, Dosing Weight 118.182, kg, TID, Start date: 07/03/16 6:00:00 CDT, Duration: 30 day, Stop date: 08/01/16 18:00:00 CDTNotes: 1 gram is approximately 1 inch of nitroglycerin ointment (20 mg NTG per gram) (Same as:Nitro-Bid) No Longer Active 07/03/2016 [facility] Aspirin 81 MG Enteric Coated Tablet 81 mg, 1 tab, Route: PO, Drug form: ECTAB, Q24H, Dosing Weight 118.182, kg, Start date: 07/03/16 3:00:00 CDT, Duration: 30 day, Stop date: 08/01/16 3:00:00 CDTNotes: Do not crush or chew. (Same As: Ecotrin) No Longer Active 07/03/2016 [facility] Saline Flush 0.9% 10 ml, Route: IVP, Drug Form: INJ, Dosing Weight 118.182, kg, PRN, PRN Line Flush, Start date: 07/03/16 2:54:00 CDT, Duration: 30 day, Stop date: 08/02/16 2:53:00 CDTNotes: (Same as: BD Posiflush) No Longer Active 07/03/2016 [facility] Acetaminophen 650 mg, 2 tab, Route: PO, Drug form: TAB, Q4H, Dosing Weight 118.182, kg, PRN Headache 1-5, Start date: 07/03/16 2:54:00 CDT, Duration: 30 day, Stop date: 08/02/16 2:53:00 CDTNotes: Do not exceed 4 g m/day. (Same as: Tylenol) No Longer Active 07/03/2016 [facility] Ondansetron 4 mg, 1 tab, Route: PO, Drug form: TAB, Q8H, Dosing Weight 118.182, kg, PRN Nausea & Vomiting, Start date: 07/03/16 2:54:00 CDT, Duration: 30 day, Stop date: 08/02/16 2:53:00 CDTNotes: (Same as: Zofran) Inactive 07/03/2016 [facility] Morphine 4 mg, 2 mL, Route: IVP, Drug form: INJ, Q2H, Dosing Weight 118.182, kg, PRN Pain Score 7-10, Start date: 07/03/16 2:54:00 CDT, Duration: 30 day, Stop date: 08/02/16 2:53:00 CDTNotes: (Same as:MORPhine Sulfate) Inactive 07/03/2016 [facility] Nitroglycerin 0.4 mg, 1 tab, Route: SL, Drug form: TAB, Q5Min, Dosing Weight 118.182, kg, PRN Chest Pain, Start date: 07/03/16 2:54:00 CDT, Duration: 3 doses or times, Stop date: Limited # of timesNotes: (Same as: Nitroquick, Nitrostat) "Do Not Crush" Sublingual tablet Inactive 07/03/2016 [facility] Nitroglycerin 0.02 MG/MG Topical Ointment 2 inch, Route: TOP, Drug Form: OINT, Dosing Weight 118.182, kg, ONCE, STAT, Start date: 07/03/16 0:20:00 CDT, Stop date: 07/03/16 0:20:00 CDTNotes: 1 gram is approximately 1 inch of nitroglycerin ointment (20 mg NTG per gram) (Same as:Nitro-Bid) Inactive 07/03/2016 [facility] Ondansetron 4 mg, Route: IVP, Drug form: INJ, ONCE, Dosing Weight 118.182, kg, Priority: STAT, Start date: 07/03/16 0:20:00 CDT, Stop date: 07/03/16 0:20:00 CDT Inactive 07/03/2016 [facility] Morphine 4 mg, Route: IVP, ONCE, Dosing Weight 118.182, kg, Priority: STAT, Start date: 07/03/16 0:20:00 CDT, Stop date: 07/03/16 0:20:00 CDT Inactive 07/03/2016 [facility] Hydrocodone Bit/Acetaminophen (Hydrocodon-Acetaminophen 5-325) 1 Each Tablet, 1 Tab Oral As Needed Active 08/31/2015 [facility] Ondansetron 4 MG Oral Tablet [Zofran] 4 mg=1 tab, PO, BID, PRN Nausea, # 20 tab, 0 Refill(s) Active 02/12/2015 [facility] tramadol hydrochloride 50 MG Oral Tablet 50 mg=1 tab, PO, Q4H, PRN pain, # 24 tab, 0 Refill(s) Active 02/12/2015 [facility] Zofran ODT 4 mg, Route: PO, Drug form: TABDIS, ONCE, Dosing Weight 77.273, kg, Priority: STAT, Start date: 02/12/15 6:11:00, Stop date: 02/12/15 6:11:00 Inactive 02/12/2015 [facility] Morphine 4 mg, Route: IM, Drug form: INJ, ONCE, Dosing Weight 77.273, kg, Priority: STAT, Start date: 02/12/15 6:08:00, Stop date: 02/12/15 6:08:00 Inactive 02/12/2015 [facility] Acetaminophen 325 MG / Hydrocodone Bitartrate 5 MG Oral Tablet [Winside 5/325] 1 tab, Route: PO, Drug Form: TAB, Dosing Weight 77.273, kg, ONCE, STAT, Start date: 02/12/15 6:08:00, Stop date: 02/12/15 6:08:00 Inactive 02/12/2015 [facility] Tramadol 50 mg, PO, Q4-6H, Pain, # 20 tab, 0 Refill(s) Active 09/25/2014 [facility] torsemide 20 mg oral tablet 20 mg=1 tab, PO, Daily, 0 Refill(s) Active 09/25/2014 [facility] pantoprazole 40 mg oral enteric coated tablet See Instructions, PO, 1 tab Daily, 0 Refill(s)Special Instructions: 1 tab Daily Active 09/25/2014 [facility] gabapentin 100 MG Oral Capsule [Neurontin] 300 mg=3 cap, PO, TID, 0 Refill(s) Active 09/25/2014 [facility] lisinopril 5 mg oral tablet 5 mg=1 tab, PO, Daily, 0 Refill(s) Active 09/25/2014 [facility] clopidogrel 75 mg oral tablet 75 mg=1 tab, PO, Daily, 0 Refill(s) Active 09/25/2014 [facility] Spironolactone 50 MG Oral Tablet [Aldactone] 50 mg=1 tab, PO, Daily, 0 Refill(s) Active 09/25/2014 [facility] Alprazolam 0.25 Mg Tablet, Active 02/12/2013 [facility] Buspirone Hcl 5 Mg Tablet, Active 02/12/2013 [facility] Pantoprazole Sodium 40 Mg Tablet., Active 02/12/2013 [facility] Ranolazine (Ranexa) 500 Mg Tab.sr.12h, Active 02/12/2013 [facility] Amiodarone Hcl 200 Mg Tablet Daily Active [facility] Aspirin (Aspir 81) 81 Mg Tablet. Daily Active [facility] Carvedilol 12.5 Mg Tablet Twice A Day Active [facility] Clopidogrel Bisulfate (Clopidogrel) 75 Mg Tablet Daily Active [facility] Isosorbide Mononitrate (Isosorbide Mononitrate Er) 60 Mg Tab.er.24h Daily Active [facility] Lisinopril 5 Mg Tablet Bedtime Active [facility] Mexiletine Hcl 150 Mg Capsule Twice A Day Active [facility] Nitroglycerin (Nitrostat) 0.4 Mg Tab.subl As Needed Active [facility] Pantoprazole Sodium (Protonix) 40 Mg Tablet. Twice A Day Active [facility] Torsemide 10 Mg Tablet Use As Directed Active TORSEMIDE 20 MG EVERY OTHER MORNING [facility] Allergies, Adverse Reactions, Alerts Substance Category Reaction Severity Reaction type Status Date Reported Comments Source morphine Assertion ITCH Mild Drug allergy Active [facility] Rita Immunizations Immunization Date Given Site Status Last Updated Comments Source diphtheria/pertussis, acel/tetanus adult 02/12/2015 Left deltoid completed [facility] Results Order Name Results Value Reference Range Date Interpretation Comments Source Chest 1view DX Chest 1view DX Clinical Indication: - chest pain Comparison: 09/17/2017 FINDINGS: AP chest radiograph was obtained. MEDIASTINUM: The cardiac silhouette is prominent. The aorta is unremarkable. 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 LUNGS: Lung volumes are maintained. There are no focal infiltrates or effusions. There are no pneumothoraces noted. BONES: The visualized osseous structures are unremarkable. IMPRESSION: No acute infiltrates or effusions. SL: [id number] 09/08/2018 - - Read by: Kandi Salazar MD Dictated Date/time: 09/08/18 02:39 Electronically Signed by: Kandi Salazar MD 09/08/18 02:40 FINAL REPORT [facility] Hct 33.6 % 42.0 - 54.0 10/01/2017 [facility] Hgb 11.5 g/dL 14.0 - 18.0 10/01/2017 [facility] Ext Lower Venous Doppler Unilat US Ext Lower Venous Doppler Unilat US Clinical Indication: - s/p tkr with swelling; Comparison: None TECHNIQUE: Sonographic evaluation of the left lower extremity veins was performed using high resolution B-mode imaging, along with pulse and color Doppler imaging. FINDINGS: Left lower extremity: The common femoral vein, superficial femoral vein, popliteal vein and visualized posterior tibial/calf veins are patent. Evaluation for augmentation at the popliteal vein is limited. There is no echogenic debris to suggest deep venous thrombosis. The saphenofemoral junction is unremarkable. IMPRESSION: No Deep Venous Thrombosis of the left leg. Soft tissue edema. SL: [id number] 09/30/2017 - - Read by: Devante Flynn MD Dictated Date/time: 09/30/17 16:31 Electronically Signed by: Devante Flynn MD 09/30/17 16:34 FINAL REPORT [facility] Hgb 11.8 g/dL 14.0 - 18.0 09/30/2017 [facility] Hct 34.2 % 42.0 - 54.0 09/30/2017 [facility] Hct 36.2 % 42.0 - 54.0 09/29/2017 [facility] Hgb 12.5 g/dL 14.0 - 18.0 09/29/2017 [facility] BLOOD BANK RESULTS Antibody Scrn Negative (09/28/17 6:22 AM) 09/28/2017 [facility] BLOOD BANK RESULTS ABO/Rh O POS 09/28/2017 [facility] Knee 1-2 Views unilateral DX Knee 1-2 Views unilateral DX Patient Name: LAURA HORNE : 1940; Age: 77 years y/o Male MR: [id number] Study: 2 view examination of the left knee dated 09/28/2017. 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 Surgical clips seen about the medial soft tissues of the left knee. Vascular calcification seen about the left knee. Air in the anterior soft tissues of the left knee and left knee joint felt to be related to the recent surgery. Mild spurring is seen at the distal quadriceps tendon insertion site on the patella. No fracture or dislocation. SL: [id number] 09/28/2017 - - Read by: Nic Romano MD Dictated Date/time: 09/28/17 10:30 Electronically Signed by: Nic Romano MD 09/28/17 10:31 FINAL REPORT [facility] BLOOD [facility] RESULTS Antibody Scrn Negative (09/17/17 9:39 AM) 09/17/2017 [facility] [facility] RESULTS ABO/Rh O POS 09/17/2017 [facility] CHEM PANEL A/G Ratio 1.2 0.7 - 1.6 09/17/2017 [facility] CHEM PANEL B/C Ratio 12 6 - 25 09/17/2017 [facility] CHEM PANEL Globulin 3.3 g/dL 2.7 - 4.2 09/17/2017 [facility] CHEM PANEL AGAP 11.1 meq/L 10.0 - 20.0 09/17/2017 [facility] CHEM PANEL eGFR 52 mL/min/1.73m2 09/17/2017 Result Comment: The eGFR is calculated using the CKD-EPI formula. In most young, healthy individuals the eGFR will be >90 mL/min/1.73m2. The eGFR declines with age. An eGFR of 60-89 may be normal in some populations, particularly the elderly, for whom the CKD-EPI formula has not been extensively validated. Use of the eGFR is not recommended in the following populations: Individuals with unstable creatinine concentrations, including patients and those with serious co-morbid conditions. Patients with extremes in muscle mass or diet. The data above are obtained from the National Kidney Disease Education Program (NKDEP) which additionally recommends that when the eGFR is used in patients with extremes of body mass index for purposes of drug dosing, the eGFR should be multiplied by the estimated BMI. [facility] CHEM PANEL Alk Phos 99 unit/L 39 - 136 09/17/2017 [facility] CHEM PANEL ALT 23 unit/L 0 - 65 09/17/2017 [facility] CHEM PANEL AST 11 unit/L 0 - 37 09/17/2017 [facility] CHEM PANEL Bili Total 0.6 mg/dL 0.2 - 1.3 09/17/2017 [facility] CHEM PANEL Calcium Lvl 8.6 mg/dL 8.5 - 10.5 09/17/2017 [facility] CHEM PANEL CO2 30 meq/L 24 - 32 09/17/2017 [facility] CHEM PANEL Albumin Lvl 3.9 g/dL 3.5 - 5.0 09/17/2017 [facility] CHEM PANEL Total Protein 7.2 g/dL 6.4 - 8.4 09/17/2017 [facility] CHEM PANEL Creatinine Lvl 1.29 mg/dL 0.50 - 1.40 09/17/2017 [facility] CHEM PANEL BUN 15 mg/dL 7 - 22 09/17/2017 [facility] CHEM PANEL Chloride Lvl 104 meq/L 95 - 109 09/17/2017 [facility] CHEM PANEL Potassium Lvl 4.1 meq/L 3.5 - 5.1 09/17/2017 [facility] CHEM PANEL Glucose Lvl 110 mg/dL 70 - 99 09/17/2017 [facility] CHEM PANEL Sodium Lvl 141 meq/L 135 - 145 09/17/2017 [facility] HEMATOLOGY PT 13.1 s 12.0 - 14.7 09/17/2017 [facility] HEMATOLOGY PTT 31.3 s 22.9 - 35.8 09/17/2017 [facility] HEMATOLOGY INR 0.99 0.85 - 1.17 09/17/2017 [facility] MPV 8.0 fL 7.4 - 10.4 09/17/2017 [facility] HEMATOLOGY RDW 14.1 % 11.5 - 14.5 09/17/2017 [facility] MCHC 34.2 g/dL 32.0 - 36.0 09/17/2017 [facility] Platelet 161 K/CMM 133 - 450 09/17/2017 [facility] MCV 97.0 fL 80.0 - 94.0 09/17/2017 [facility] HEMATOLOGY MCH 33.1 pg 27.0 - 31.0 09/17/2017 [facility] HEMATOLOGY RBC 4.38 M/CMM 4.70 - 6.10 09/17/2017 [facility] HEMATOLOGY WBC 6.4 K/CMM 3.7 - 10.4 09/17/2017 [facility] HEMATOLOGY Eosinophils # 0.2 K/CMM 0.0 - 0.5 09/17/2017 [facility] HEMATOLOGY Segs 74.6 % 45.0 - 75.0 09/17/2017 [facility] HEMATOLOGY Monocytes 7.7 % 2.0 - 12.0 09/17/2017 [facility] HEMATOLOGY Lymphocytes 14.3 % 20.0 - 40.0 09/17/2017 [facility] HEMATOLOGY Monocytes # 0.5 K/CMM 0.0 - 0.8 09/17/2017 [facility] HEMATOLOGY Lymphocytes # 0.9 K/CMM 1.0 - 5.5 09/17/2017 [facility] HEMATOLOGY Segs-Bands # 4.7 K/CMM 1.5 - 8.1 09/17/2017 [facility] HEMATOLOGY Basophils 0.4 % 0.0 - 1.0 09/17/2017 [facility] HEMATOLOGY Eosinophils 3.0 % 0.0 - 4.0 09/17/2017 [facility] IMMUNOLOGY HIV Ag/Ab 4th Gen Negative *NA* (09/17/17 9:39 AM) Negative 09/17/2017 [facility] URINE AND STOOL UA Urobilinogen <=1.0 mg/dL 0.1 - 1.0 09/17/2017 [facility] URINE AND STOOL UA Sq Epi None Seen 09/17/2017 [facility] URINE AND STOOL UA RBC null 0 - 2 09/17/2017 [facility] URINE AND STOOL UA Blood Negative (09/17/17 9:39 AM) Negative 09/17/2017 [facility] URINE AND STOOL UA WBC null 0 - 5 09/17/2017 [facility] URINE AND STOOL UA Leuk Est Negative (09/17/17 9:39 AM) Negative 09/17/2017 [facility] URINE AND STOOL UA Nitrite Negative (09/17/17 9:39 AM) Negative 09/17/2017 [facility] URINE AND STOOL UA Ketones Negative mg/dL Negative mg/dL 09/17/2017 [facility] URINE AND STOOL UA Bili Negative *NA* (09/17/17 9:39 AM) Negative 09/17/2017 [facility] URINE AND STOOL UA Glucose Negative mg/dL Negative mg/dL 09/17/2017 [facility] URINE AND STOOL UA Protein Negative mg/dL Negative mg/dL 09/17/2017 [facility] URINE AND STOOL UA pH 6.0 5.0 - 8.0 09/17/2017 [facility] URINE AND STOOL UA Spec Grav 1.014 <=1.030 09/17/2017 [facility] URINE AND STOOL UA Turbidity Clear (09/17/17 9:39 AM) Clear 09/17/2017 [facility] URINE AND STOOL UA Color Yellow *NA* (09/17/17 9:39 AM) Yellow 09/17/2017 [facility] BLOOD BANK RESULTS RBC product Product available 1 (09/17/17 8:51 AM) 09/17/2017 Result Comment: 09/28/2017 07:36 [id number] notified Eliel blood is ready for pickup [facility] Bone length scanogram DX Bone length scanogram DX Bone length scanogram DX CLINICAL HISTORY: - AP of the femur and AP of the tibia, left side, full length FINDINGS/IMPRESSION: AP view of the femur, tibia and fibula reveals mild degenerative change at the left hip joint. Mild degenerative change is also noted at the left knee joint with decrease in joint space height in the medial compartment. No significant valgus or varus deformity is noted. There are surgical clips noted in the soft tissues medially at the left knee. SL: [id number] 09/17/2017 - - Read by: Gino Baer MD Dictated Date/time: 09/17/17 13:03 Electronically Signed by: Gino Baer MD 09/17/17 13:05 FINAL REPORT [facility] Chest 2 views DX Chest 2 views DX Clinical Indication: Coughing - preop exam Comparison: February 01, 2017 FINDINGS: The PA and lateral chest radiographs shows normal lung volumes without interstitial or airspace opacities, pleural effusions or pneumothorax. There is left chest wall intracardiac device in place. The heart size and pulmonary vasculature are normal. The trachea is midline. There are no clinically significant osseous abnormalities noted. There are sternal wires in stable position. IMPRESSION: No chest radiographic evidence of acute cardiopulmonary disease. SL: [id number] 09/17/2017 - - Read by: Gurdeep Oconnor MD Dictated Date/time: 09/17/17 11:22 Electronically Signed by: Gurdeep Oconnor MD 09/17/17 11:22 FINAL REPORT [facility] Knee 3 views DX Knee 3 views DX Exam: Left Knee 3 views DX Clinical Indication: - AP lateral and merchant view of the operative knee. Comparison: None FINDINGS: Frontal, lateral and sunrise views of the left knee were obtained. There is no fracture or dislocation. There is mild narrowing of the medial compartment. There is mild to moderate narrowing of the patellofemoral compartment. There are small marginal osteophytes of all 3 compartments. There is no knee region soft tissue swelling. There is no joint effusion. Surgical clips are seen within the soft tissues of the knee medial knee region. There are arterial vascular calcifications. If there is further concern, recommend follow-up radiographs or MRI for complete assessment. 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 SL: [id number] 09/17/2017 - - Read by: Mary Villalpando MD Dictated Date/time: 09/17/17 13:21 Electronically Signed by: Mary Villalpando MD 09/17/17 13:24 FINAL REPORT [facility] Automated blood basophil count (count/volume) Automated blood basophil count (count/volume) 0.0 0.0 - 0.1 06/16/2017 [facility] Automated blood basophil count as percentage of total leukocytes Automated blood basophil count as percentage of total leukocytes 0.1 0.0 - 1.0 06/16/2017 [facility] Automated blood eosinophil count Automated blood eosinophil count 0.0 0.0 - 0.4 06/16/2017 [facility] Automated blood eosinophil count as percentage of total leukocytes Automated blood eosinophil count as percentage of total leukocytes 0.0 0.0 - 6.0 06/16/2017 [facility] Automated blood hematocrit (volume fraction) Automated blood hematocrit (volume fraction) 43.1 38.2 - 49.6 06/16/2017 [facility] Automated blood lymphocyte count as percentage ot total leukocytes Automated blood lymphocyte count as percentage ot total leukocytes 3.5 18.0 - 39.1 06/16/2017 [facility] Automated blood monocyte count as percentage of total leukocytes Automated blood monocyte count as percentage of total leukocytes 2.9 4.4 - 11.3 06/16/2017 [facility] Automated blood neutrophil count Automated blood neutrophil count 13.1 2.1 - 6.9 06/16/2017 [facility] Automated blood platelet count (count/volume) Automated blood platelet count (count/volume) 173 140 - 360 06/16/2017 [facility] Automated blood segmented neutrophil count as percentage of total leukocytes Automated blood segmented neutrophil count as percentage of total leukocytes 92.9 38.7 - 80.0 06/16/2017 [facility] Automated erythrocyte mean corpuscular hemoglobin (mass per erythrocyte) Automated erythrocyte mean corpuscular hemoglobin (mass per erythrocyte) 32.5 28 - 32 06/16/2017 [facility] Automated erythrocyte mean corpuscular hemoglobin concentration measurement (mass/volume) Automated erythrocyte mean corpuscular hemoglobin concentration measurement (mass/volume) 34.1 31 - 35 06/16/2017 [facility] Automated erythrocyte mean corpuscular volume Automated erythrocyte mean corpuscular volume 95.4 81 - 99 06/16/2017 [facility] Blood erythrocytes automated count (number/volume) Blood erythrocytes automated count (number/volume) 4.52 4.3 - 5.7 06/16/2017 [facility] Blood hemoglobin measurement (moles/volume) Blood hemoglobin measurement (moles/volume) 14.7 14.0 - 18.0 06/16/2017 [facility] Blood leukocytes automated count (number/volume) Blood leukocytes automated count (number/volume) 14.09 4.8 - 10.8 06/16/2017 [facility] Blood lymphocytes count (number/volume) Blood lymphocytes count (number/volume) 0.5 1.0 - 3.2 06/16/2017 [facility] Blood monocytes automated count (number/volume) Blood monocytes automated count (number/volume) 0.4 0.2 - 0.8 06/16/2017 [facility] Estimated glomerular filtration rate (GFR) determination Estimated glomerular filtration rate (GFR) determination 56 60 06/16/2017 [facility] Glucose measurement Glucose measurement 152 74 - 118 06/16/2017 [facility] Serum or plasma anion gap Serum or plasma anion gap 17.3 8 - 16 06/16/2017 [facility] Serum or plasma calcium measurement (mass/volume) Serum or plasma calcium measurement (mass/volume) 9.5 8.4 - 10.2 06/16/2017 [facility] Serum or plasma carbon dioxide, total measurement (moles/volume) Serum or plasma carbon dioxide, total measurement (moles/volume) 22 22 - 29 06/16/2017 [facility] Serum or plasma chloride measurement (moles/volume) Serum or plasma chloride measurement (moles/volume) 106 98 - 107 06/16/2017 [facility] Serum or plasma creatinine measurement (mass/volume) Serum or plasma creatinine measurement (mass/volume) 1.24 0.72 - 1.25 06/16/2017 [facility] Serum or plasma potassium measurement (moles/volume) Serum or plasma potassium measurement (moles/volume) 4.3 3.5 - 5.1 06/16/2017 [facility] Serum or plasma sodium measurement (moles/volume) Serum or plasma sodium measurement (moles/volume) 141 136 - 145 06/16/2017 [facility] Serum or plasma urea nitrogen measurement (mass/volume) Serum or plasma urea nitrogen measurement (mass/volume) 28 7 - 26 06/16/2017 [facility] Serum or plasma urea nitrogen/creatinine mass ratio Serum or plasma urea nitrogen/creatinine mass ratio 23 6 - 25 06/16/2017 [facility] Red Cell Distribution Width 13.0 11.7 - 14.4 06/16/2017 [facility] IM GRANULOCYTES % 0.6 0.0 - 1.0 06/16/2017 [facility] Absolute Immature Granulocyte (auto 0.09 0 - 0.1 06/16/2017 [facility] B-Type Natriuretic Peptide 155.8 0 - 100 06/15/2017 [facility] Plasma globulin measurement (mass/volume) Plasma globulin measurement (mass/volume) 2.9 2.3 - 3.5 06/14/2017 [facility] Serum or plasma alanine aminotransferase measurement (enzymatic activity/volume) Serum or plasma alanine aminotransferase measurement (enzymatic activity/volume) 16 0 - 55 06/14/2017 [facility] Serum or plasma albumin measurement (mass/volume) Serum or plasma albumin measurement (mass/volume) 3.5 3.5 - 5.0 06/14/2017 [facility] Serum or plasma albumin/globulin mass ratio Serum or plasma albumin/globulin mass ratio 1.2 0.8 - 2.0 06/14/2017 [facility] Serum or plasma alkaline phosphatase measurement (enzymatic activity/volume) Serum or plasma alkaline phosphatase measurement (enzymatic activity/volume) 87 40 - 150 06/14/2017 [facility] Serum or plasma protein measurement (mass/volume) Serum or plasma protein measurement (mass/volume) 6.4 6.5 - 8.1 06/14/2017 [facility] Serum or plasma total bilirubin measurement (mass/volume) Serum or plasma total bilirubin measurement (mass/volume) 0.7 0.2 - 1.2 06/14/2017 [facility] Aspartate Amino Transf (AST/SGOT) 13 5 - 34 06/14/2017 [facility] Serum or plasma uric acid measurement (mass/volume) Serum or plasma uric acid measurement (mass/volume) 6.8 3.5 - 7.2 06/13/2017 [facility] CHEM PANEL eGFR 52 mL/min/1.73m2 02/03/2017 Result Comment: The eGFR is calculated using the CKD-EPI formula. In most young, healthy individuals the eGFR will be >90 mL/min/1.73m2. The eGFR declines with age. An eGFR of 60-89 may be normal in some populations, particularly the elderly, for whom the CKD-EPI formula has not been extensively validated. Use of the eGFR is not recommended in the following populations: Individuals with unstable creatinine concentrations, including patients and those with serious co-morbid conditions. Patients with extremes in muscle mass or diet. The data above are obtained from the National Kidney Disease Education Program (NKDEP) which additionally recommends that when the eGFR is used in patients with extremes of body mass index for purposes of drug dosing, the eGFR should be multiplied by the estimated BMI. [facility] CHEM PANEL Bili Total 0.7 mg/dL 0.2 - 1.3 02/03/2017 [facility] CHEM PANEL AST 17 unit/L 0 - 37 02/03/2017 [facility] CHEM PANEL Alk Phos 101 unit/L 39 - 136 02/03/2017 [facility] CHEM PANEL ALT 26 unit/L 0 - 65 02/03/2017 [facility] CHEM PANEL Albumin Lvl 3.7 g/dL 3.5 - 5.0 02/03/2017 [facility] CHEM PANEL A/G Ratio 1.0 0.7 - 1.6 02/03/2017 [facility] CHEM PANEL Globulin 3.7 g/dL 2.7 - 4.2 02/03/2017 [facility] CHEM PANEL Total Protein 7.4 g/dL 6.4 - 8.4 02/03/2017 [facility] CHEM PANEL AGAP 16.1 meq/L 10.0 - 20.0 02/03/2017 [facility] CHEM PANEL CO2 22 meq/L 24 - 32 02/03/2017 [facility] CHEM PANEL Calcium Lvl 8.1 mg/dL 8.5 - 10.5 02/03/2017 [facility] CHEM PANEL B/C Ratio 16 6 - 25 02/03/2017 [facility] CHEM PANEL Sodium Lvl 138 meq/L 135 - 145 02/03/2017 [facility] CHEM PANEL Chloride Lvl 104 meq/L 95 - 109 02/03/2017 [facility] CHEM PANEL Potassium Lvl 4.1 meq/L 3.5 - 5.1 02/03/2017 [facility] CHEM PANEL Creatinine Lvl 1.30 mg/dL 0.50 - 1.40 02/03/2017 [facility] CHEM PANEL BUN 21 mg/dL 7 - 22 02/03/2017 [facility] CHEM PANEL Glucose Lvl 98 mg/dL 70 - 99 02/03/2017 [facility] HEMATOLOGY Lymphocytes # 1.4 K/CMM 1.0 - 5.5 02/03/2017 [facility] HEMATOLOGY Eosinophils # 0.1 K/CMM 0.0 - 0.5 02/03/2017 [facility] HEMATOLOGY Monocytes # 0.7 K/CMM 0.0 - 0.8 02/03/2017 [facility] Segs-Bands # 5.5 K/CMM 1.5 - 8.1 02/03/2017 [facility] Basophils 0.4 % 0.0 - 1.0 02/03/2017 [facility] Eosinophils 1.6 % 0.0 - 4.0 02/03/2017 [facility] Monocytes 8.8 % 2.0 - 12.0 02/03/2017 [facility] Lymphocytes 18.1 % 20.0 - 40.0 02/03/2017 [facility] Segs 71.1 % 45.0 - 75.0 02/03/2017 [facility] MCV 95.0 fL 80.0 - 94.0 02/03/2017 [facility] MPV 7.7 fL 7.4 - 10.4 02/03/2017 [facility] Platelet 148 K/CMM 133 - 450 02/03/2017 [facility] RDW 14.0 % 11.5 - 14.5 02/03/2017 [facility] MCHC 34.7 g/dL 32.0 - 36.0 02/03/2017 [facility] MCH 32.9 pg 27.0 - 31.0 02/03/2017 [facility] RBC 4.53 M/CMM 4.70 - 6.10 02/03/2017 [facility] Hct 43.0 % 42.0 - 54.0 02/03/2017 [facility] WBC 7.7 K/CMM 3.7 - 10.4 02/03/2017 [facility] Hgb 14.9 g/dL 14.0 - 18.0 02/03/2017 [facility] CHEM PANEL Bili Total 0.4 mg/dL 0.2 - 1.3 02/02/2017 [facility] CHEM PANEL BUN 21 mg/dL 7 - 22 02/02/2017 [facility] CHEM PANEL Glucose Lvl 115 mg/dL 70 - 99 02/02/2017 [facility] CHEM PANEL eGFR 58 mL/min/1.73m2 02/02/2017 Result Comment: The eGFR is calculated using the CKD-EPI formula. In most young, healthy individuals the eGFR will be >90 mL/min/1.73m2. The eGFR declines with age. An eGFR of 60-89 may be normal in some populations, particularly the elderly, for whom the CKD-EPI formula has not been extensively validated. Use of the eGFR is not recommended in the following populations: Individuals with unstable creatinine concentrations, including patients and those with serious co-morbid conditions. Patients with extremes in muscle mass or diet. The data above are obtained from the National Kidney Disease Education Program (NKDEP) which additionally recommends that when the eGFR is used in patients with extremes of body mass index for purposes of drug dosing, the eGFR should be multiplied by the estimated BMI. [facility] CHEM PANEL Total Protein 6.1 g/dL 6.4 - 8.4 02/02/2017 [facility] CHEM PANEL Calcium Lvl 7.8 mg/dL 8.5 - 10.5 02/02/2017 [facility] CHEM PANEL Albumin Lvl 3.5 g/dL 3.5 - 5.0 02/02/2017 [facility] CHEM PANEL AST 13 unit/L 0 - 37 02/02/2017 [facility] CHEM PANEL ALT 23 unit/L 0 - 65 02/02/2017 [facility] CHEM PANEL Alk Phos 93 unit/L 39 - 136 02/02/2017 [facility] CHEM PANEL Sodium Lvl 141 meq/L 135 - 145 02/02/2017 [facility] CHEM PANEL CO2 25 meq/L 24 - 32 02/02/2017 [facility] CHEM PANEL Creatinine Lvl 1.20 mg/dL 0.50 - 1.40 02/02/2017 [facility] CHEM PANEL Potassium Lvl 4.2 meq/L 3.5 - 5.1 02/02/2017 [facility] CHEM PANEL Chloride Lvl 107 meq/L 95 - 109 02/02/2017 [facility] CHEM PANEL AGAP 13.2 meq/L 10.0 - 20.0 02/02/2017 [facility] CHEM PANEL Globulin 2.6 g/dL 2.7 - 4.2 02/02/2017 [facility] CHEM PANEL B/C Ratio 18 6 - 25 02/02/2017 [facility] CHEM PANEL A/G Ratio 1.3 0.7 - 1.6 02/02/2017 [facility] HEMATOLOGY Segs-Bands # 4.3 K/CMM 1.5 - 8.1 02/02/2017 [facility] HEMATOLOGY Lymphocytes # 1.1 K/CMM 1.0 - 5.5 02/02/2017 [facility] HEMATOLOGY Eosinophils # 0.1 K/CMM 0.0 - 0.5 02/02/2017 [facility] HEMATOLOGY Basophils 0.7 % 0.0 - 1.0 02/02/2017 [facility] HEMATOLOGY Monocytes # 0.5 K/CMM 0.0 - 0.8 02/02/2017 [facility] HEMATOLOGY Segs 71.0 % 45.0 - 75.0 02/02/2017 [facility] HEMATOLOGY Monocytes 8.7 % 2.0 - 12.0 02/02/2017 [facility] HEMATOLOGY Eosinophils 1.9 % 0.0 - 4.0 02/02/2017 [facility] HEMATOLOGY Lymphocytes 17.7 % 20.0 - 40.0 02/02/2017 [facility] HEMATOLOGY WBC 6.1 K/CMM 3.7 - 10.4 02/02/2017 [facility] HEMATOLOGY RBC 4.18 M/CMM 4.70 - 6.10 02/02/2017 [facility] MCH 33.3 pg 27.0 - 31.0 02/02/2017 [facility] HEMATOLOGY MCV 96.7 fL 80.0 - 94.0 02/02/2017 [facility] HEMATOLOGY Hct 40.4 % 42.0 - 54.0 02/02/2017 [facility] HEMATOLOGY Hgb 13.9 g/dL 14.0 - 18.0 02/02/2017 [facility] HEMATOLOGY MPV 7.4 fL 7.4 - 10.4 02/02/2017 [facility] Platelet 140 K/CMM 133 - 450 02/02/2017 [facility] HEMATOLOGY RDW 13.8 % 11.5 - 14.5 02/02/2017 [facility] MCHC 34.5 g/dL 32.0 - 36.0 02/02/2017 [facility] CARDIAC ENZYMES Troponin-I null 0.00 - 0.40 02/01/2017 [facility] CARDIAC ENZYMES Troponin-I null 0.00 - 0.40 02/01/2017 [facility] CARDIAC ENZYMES Troponin-I null 0.00 - 0.40 02/01/2017 [facility] CARDIAC ENZYMES CK MB Index 2.0 0.0 - 2.5 02/01/2017 [facility] CARDIAC ENZYMES BNP 128 pg/mL <=100 pg/mL 02/01/2017 [facility] CARDIAC ENZYMES CK MB 1.2 ng/mL 0.5 - 3.6 02/01/2017 [facility] CARDIAC ENZYMES Total CK 61 unit/L 12 - 191 02/01/2017 [facility] CHEM PANEL Total Protein 7.1 g/dL 6.4 - 8.4 02/01/2017 [facility] CHEM PANEL Calcium Lvl 8.5 mg/dL 8.5 - 10.5 02/01/2017 [facility] CHEM PANEL ALT 21 unit/L 0 - 65 02/01/2017 [facility] CHEM PANEL Bili Total 0.5 mg/dL 0.2 - 1.3 02/01/2017 [facility] CHEM PANEL B/C Ratio 18 6 - 25 02/01/2017 [facility] CHEM PANEL Albumin Lvl 3.7 g/dL 3.5 - 5.0 02/01/2017 [facility] CHEM PANEL Alk Phos 111 unit/L 39 - 136 02/01/2017 [facility] CHEM PANEL AST 15 unit/L 0 - 37 02/01/2017 [facility] CHEM PANEL AGAP 14.9 meq/L 10.0 - 20.0 02/01/2017 [facility] CHEM PANEL Globulin 3.4 g/dL 2.7 - 4.2 02/01/2017 [facility] CHEM PANEL eGFR 44 mL/min/1.73m2 02/01/2017 Result Comment: The eGFR is calculated using the CKD-EPI formula. In most young, healthy individuals the eGFR will be >90 mL/min/1.73m2. The eGFR declines with age. An eGFR of 60-89 may be normal in some populations, particularly the elderly, for whom the CKD-EPI formula has not been extensively validated. Use of the eGFR is not recommended in the following populations: Individuals with unstable creatinine concentrations, including patients and those with serious co-morbid conditions. Patients with extremes in muscle mass or diet. The data above are obtained from the National Kidney Disease Education Program (NKDEP) which additionally recommends that when the eGFR is used in patients with extremes of body mass index for purposes of drug dosing, the eGFR should be multiplied by the estimated BMI. [facility] CHEM PANEL A/G Ratio 1.1 0.7 - 1.6 02/01/2017 [facility] CHEM PANEL Potassium Lvl 3.9 meq/L 3.5 - 5.1 02/01/2017 [facility] CHEM PANEL CO2 26 meq/L 24 - 32 02/01/2017 [facility] CHEM PANEL Chloride Lvl 104 meq/L 95 - 109 02/01/2017 [facility] CHEM PANEL BUN 27 mg/dL 7 - 22 02/01/2017 [facility] CHEM PANEL Glucose Lvl 99 mg/dL 70 - 99 02/01/2017 [facility] CHEM PANEL Creatinine Lvl 1.50 mg/dL 0.50 - 1.40 02/01/2017 [facility] CHEM PANEL Sodium Lvl 141 meq/L 135 - 145 02/01/2017 [facility] [facility] Eosinophils # 0.1 K/CMM 0.0 - 0.5 02/01/2017 [facility] Monocytes # 0.7 K/CMM 0.0 - 0.8 02/01/2017 [facility] Segs-Bands # 5.7 K/CMM 1.5 - 8.1 02/01/2017 [facility] Lymphocytes # 1.5 K/CMM 1.0 - 5.5 02/01/2017 [facility] Basophils 0.4 % 0.0 - 1.0 02/01/2017 [facility] Monocytes 9.1 % 2.0 - 12.0 02/01/2017 [facility] Eosinophils 1.8 % 0.0 - 4.0 02/01/2017 [facility] Lymphocytes 18.7 % 20.0 - 40.0 02/01/2017 [facility] Segs 70.0 % 45.0 - 75.0 02/01/2017 [facility] WBC 8.2 K/CMM 3.7 - 10.4 02/01/2017 [facility] Platelet 159 K/CMM 133 - 450 02/01/2017 [facility] RDW 14.0 % 11.5 - 14.5 02/01/2017 [facility] MPV 8.0 fL 7.4 - 10.4 02/01/2017 [facility] MCHC 35.2 g/dL 32.0 - 36.0 02/01/2017 [facility] MCH 34.0 pg 27.0 - 31.0 02/01/2017 [facility] MCV 96.4 fL 80.0 - 94.0 02/01/2017 [facility] Hgb 13.9 g/dL 14.0 - 18.0 02/01/2017 [facility] RBC 4.08 M/CMM 4.70 - 6.10 02/01/2017 [facility] Hct 39.3 % 42.0 - 54.0 02/01/2017 [facility] Chest 1view DX Chest 1view DX Chest 1view DX 01/31/2017 11:23 PM CDT Ordering Physician: Royal Ann, DO CLINICAL HISTORY: Chest pain - ? infiltrates; TECHNIQUE: AP view of the chest was obtained. COMPARISON: 09/21/2016 and September 2007 FINDINGS: Lungs and pleural spaces are clear. No radiographically detectable pneumothorax is present. Cardiomediastinal silhouette is unchanged. Bones are unchanged. Lifelines are stable. IMPRESSION: No acute abnormality of the chest. Mild cardiomegaly. SL: [id number] 02/01/2017 - - Read by: Monica Wesley MD Dictated Date/time: 02/01/17 01:47 Electronically Signed by: Monica Wesley MD 02/01/17 01:47 FINAL REPORT [facility] HEMATOLOGY Hgb 13.4 g/dL 14.0 - 18.0 09/23/2016 [facility] CHEM PANEL Magnesium Lvl 2.2 mg/dL 1.8 - 2.4 09/23/2016 [facility] ELECTROLYTES CO2 25 meq/L 24 - 32 09/23/2016 [facility] ELECTROLYTES Potassium Lvl 4.2 meq/L 3.5 - 5.1 09/23/2016 [facility] ELECTROLYTES Chloride Lvl 108 meq/L 95 - 109 09/23/2016 [facility] ELECTROLYTES Creatinine Lvl 1.10 mg/dL 0.50 - 1.40 09/23/2016 [facility] ELECTROLYTES Sodium Lvl 142 meq/L 135 - 145 09/23/2016 [facility] ELECTROLYTES BUN 19 mg/dL 7 - 22 09/23/2016 [facility] ELECTROLYTES Glucose Lvl 94 mg/dL 70 - 99 09/23/2016 [facility] ELECTROLYTES AGAP 13.2 meq/L 10.0 - 20.0 09/23/2016 [facility] ELECTROLYTES Calcium Lvl 7.5 mg/dL 8.5 - 10.5 09/23/2016 [facility] ELECTROLYTES eGFR 64 mL/min/1.73m2 09/23/2016 Result Comment: The eGFR is calculated using the CKD-EPI formula. In most young, healthy individuals the eGFR will be >90 mL/min/1.73m2. The eGFR declines with age. An eGFR of 60-89 may be normal in some populations, particularly the elderly, for whom the CKD-EPI formula has not been extensively validated. Use of the eGFR is not recommended in the following populations: Individuals with unstable creatinine concentrations, including patients and those with serious co-morbid conditions. Patients with extremes in muscle mass or diet. The data above are obtained from the National Kidney Disease Education Program (NKDEP) which additionally recommends that when the eGFR is used in patients with extremes of body mass index for purposes of drug dosing, the eGFR should be multiplied by the estimated BMI. [facility] CHEM PANEL Magnesium Lvl 2.3 mg/dL 1.8 - 2.4 09/22/2016 [facility] ELECTROLYTES AGAP 14.0 meq/L 10.0 - 20.0 09/22/2016 [facility] ELECTROLYTES Calcium Lvl 8.0 mg/dL 8.5 - 10.5 09/22/2016 [facility] ELECTROLYTES CO2 24 meq/L 24 - 32 09/22/2016 [facility] ELECTROLYTES Chloride Lvl 107 meq/L 95 - 109 09/22/2016 [facility] ELECTROLYTES eGFR 52 mL/min/1.73m2 09/22/2016 Result Comment: The eGFR is calculated using the CKD-EPI formula. In most young, healthy individuals the eGFR will be >90 mL/min/1.73m2. The eGFR declines with age. An eGFR of 60-89 may be normal in some populations, particularly the elderly, for whom the CKD-EPI formula has not been extensively validated. Use of the eGFR is not recommended in the following populations: Individuals with unstable creatinine concentrations, including patients and those with serious co-morbid conditions. Patients with extremes in muscle mass or diet. The data above are obtained from the National Kidney Disease Education Program (NKDEP) which additionally recommends that when the eGFR is used in patients with extremes of body mass index for purposes of drug dosing, the eGFR should be multiplied by the estimated BMI. [facility] ELECTROLYTES Creatinine Lvl 1.30 mg/dL 0.50 - 1.40 09/22/2016 [facility] ELECTROLYTES BUN 18 mg/dL 7 - 22 09/22/2016 [facility] ELECTROLYTES Glucose Lvl 94 mg/dL 70 - 99 09/22/2016 [facility] ELECTROLYTES Potassium Lvl 4.0 meq/L 3.5 - 5.1 09/22/2016 [facility] ELECTROLYTES Sodium Lvl 141 meq/L 135 - 145 09/22/2016 [facility] Cardiac SPECT multi studies NM Cardiac SPECT multi studies NM EXAM: Cardiac SPECT multi studies NM INDICATION: Chest pain REPORT: Pharmacologic stress testing was performed with 0.4 mg/5 mL of intravenous Regadenoson per protocol. The heart rate ailin from 66 beats per minute at baseline to 75 beats per minute at peak stress which is 52% of the maximum predicted heart rate. The blood pressure decreased from 144/64 mmHg at rest to 124/60 mmHg during stress, which is a normal response. The patient developed no significant symptoms. The resting ECG showed electronic atrial pacemaker, incomplete left bundle branch block and marked ST abnormality, possible inferolateral subendocardial injury and did not show any ST-segment changes consistent with myocardial ischemia. MYOCARDIAL PERFUSION IMAGING: Myocardial perfusion SPECT imaging was performed at rest following the injection of 10 mCi of intravenous Tc-99m sestamibi. At peak pharmacologic effect, the patient was injected with 31 mCi of intravenous Tc-99m sestamibi. Gated post- stress tomographic imaging was performed. The overall quality of the study is good. Attenuation artifact was absent. Left ventricular cavity was noted to be enlarged on the rest and stress studies. SPECT images demonstrate a medium-sized, severe perfusion defect on the inferior wall on rest and stress. Gated SPECT imaging reveals akinesis of the inferior wall. The left ventricular ejection fraction was calculated to be 47%. IMPRESSION: 1. Myocardial perfusion imaging is abnormal. 2. There is a medium-sized area of transmural scar in the inferior wall. 3. Overall left ventricular systolic function was abnormal with regional wall motion abnormalities. [id number] 09/22/2016 - - Read by: Latrice Chanel MD Dictated Date/time: 03/02/17 09:35 Electronically Signed by: Latrice Chanel MD 03/02/17 09:42 FINAL REPORT [facility] CARDIAC ENZYMES Troponin-I null 0.00 - 0.40 09/21/2016 [facility] CARDIAC ENZYMES Total CK 55 unit/L - 09/21/2016 [facility] CARDIAC ENZYMES Troponin-I null 0.00 - 0.40 09/21/2016 [facility] CARDIAC ENZYMES Total CK 45 unit/L 12 - 191 09/21/2016 [facility] URINE AND STOOL UA Color Yellow *NA* (09/21/16 8:33 AM) Yellow 09/21/2016 [facility] URINE AND STOOL UA Turbidity Clear (09/21/16 8:33 AM) Clear 09/21/2016 [facility] URINE AND STOOL UA Spec Grav 1.027 <=1.030 09/21/2016 [facility] URINE AND STOOL UA pH 5.0 5.0 - 8.0 09/21/2016 [facility] URINE AND STOOL UA Bili Negative *NA* (09/21/16 8:33 AM) Negative 09/21/2016 [facility] URINE AND STOOL UA Leuk Est Negative (09/21/16 8:33 AM) Negative 09/21/2016 [facility] URINE AND STOOL UA Blood Negative (09/21/16 8:33 AM) Negative 09/21/2016 [facility] URINE AND STOOL UA Nitrite Negative (09/21/16 8:33 AM) Negative 09/21/2016 [facility] URINE AND STOOL UA Sq Epi Occasional /LPF Few /LPF 09/21/2016 [facility] URINE AND STOOL UA Mucus Few /LPF None Seen /LPF 09/21/2016 [facility] URINE AND STOOL UA WBC 1 /HPF 0 - 5 09/21/2016 [facility] URINE AND STOOL UA Ketones Negative mg/dL Negative mg/dL 09/21/2016 [facility] URINE AND STOOL UA Protein Negative mg/dL Negative mg/dL 09/21/2016 [facility] URINE AND STOOL UA Glucose Negative mg/dL Negative mg/dL 09/21/2016 [facility] URINE AND STOOL UA Urobilinogen <=1.0 mg/dL 0.1 - 1.0 09/21/2016 [facility] CARDIAC ENZYMES CK MB Index 3.5 0.0 - 2.5 09/21/2016 [facility] CARDIAC ENZYMES BNP 78 pg/mL <=100 pg/mL 09/21/2016 [facility] CARDIAC ENZYMES Total CK 46 unit/L 12 - 191 09/21/2016 [facility] CARDIAC ENZYMES CK MB 1.6 ng/mL 0.5 - 3.6 09/21/2016 [facility] CARDIAC ENZYMES Troponin-I null 0.00 - 0.40 09/21/2016 [facility] CHEM PANEL Magnesium Lvl 2.3 mg/dL 1.8 - 2.4 09/21/2016 [facility] CHEM PANEL eGFR 52 mL/min/1.73m2 09/21/2016 Result Comment: The eGFR is calculated using the CKD-EPI formula. In most young, healthy individuals the eGFR will be >90 mL/min/1.73m2. The eGFR declines with age. An eGFR of 60-89 may be normal in some populations, particularly the elderly, for whom the CKD-EPI formula has not been extensively validated. Use of the eGFR is not recommended in the following populations: Individuals with unstable creatinine concentrations, including patients and those with serious co-morbid conditions. Patients with extremes in muscle mass or diet. The data above are obtained from the National Kidney Disease Education Program (NKDEP) which additionally recommends that when the eGFR is used in patients with extremes of body mass index for purposes of drug dosing, the eGFR should be multiplied by the estimated BMI. [facility] CHEM PANEL Bili Total 0.4 mg/dL 0.2 - 1.3 09/21/2016 [facility] CHEM PANEL B/C Ratio 19 6 - 25 09/21/2016 [facility] CHEM PANEL Globulin 3.2 g/dL 2.7 - 4.2 09/21/2016 [facility] CHEM PANEL AGAP 14.8 meq/L 10.0 - 20.0 09/21/2016 [facility] CHEM PANEL ALT 19 unit/L 0 - 65 09/21/2016 [facility] CHEM PANEL Alk Phos 99 unit/L 39 - 136 09/21/2016 [facility] CHEM PANEL AST 8 unit/L 0 - 37 09/21/2016 [facility] CHEM PANEL A/G Ratio 1.1 0.7 - 1.6 09/21/2016 [facility] CHEM PANEL Potassium Lvl 3.8 meq/L 3.5 - 5.1 09/21/2016 [facility] CHEM PANEL Sodium Lvl 141 meq/L 135 - 145 09/21/2016 [facility] CHEM PANEL Calcium Lvl 7.9 mg/dL 8.5 - 10.5 09/21/2016 [facility] CHEM PANEL CO2 25 meq/L 24 - 32 09/21/2016 [facility] CHEM PANEL Albumin Lvl 3.4 g/dL 3.5 - 5.0 09/21/2016 [facility] CHEM PANEL Total Protein 6.6 g/dL 6.4 - 8.4 09/21/2016 [facility] CHEM PANEL Chloride Lvl 105 meq/L 95 - 109 09/21/2016 [facility] CHEM PANEL Glucose Lvl 110 mg/dL 70 - 99 09/21/2016 [facility] CHEM PANEL Creatinine Lvl 1.30 mg/dL 0.50 - 1.40 09/21/2016 [facility] CHEM PANEL BUN 25 mg/dL 7 - 22 09/21/2016 [facility] HEMATOLOGY Eosinophils # 0.2 K/CMM 0.0 - 0.5 09/21/2016 [facility] HEMATOLOGY Eosinophils 2.6 % 0.0 - 4.0 09/21/2016 [facility] HEMATOLOGY Basophils 0.3 % 0.0 - 1.0 09/21/2016 [facility] HEMATOLOGY Monocytes # 0.5 K/CMM 0.0 - 0.8 09/21/2016 [facility] HEMATOLOGY Lymphocytes # 1.2 K/CMM 1.0 - 5.5 09/21/2016 [facility] Segs-Bands # 4.6 K/CMM 1.5 - 8.1 09/21/2016 [facility] Segs 70.9 % 45.0 - 75.0 09/21/2016 [facility] Lymphocytes 18.8 % 20.0 - 40.0 09/21/2016 [facility] Monocytes 7.4 % 2.0 - 12.0 09/21/2016 [facility] PTT 31.8 s 22.9 - 35.8 09/21/2016 [facility] INR 1.01 0.85 - 1.17 09/21/2016 [facility] PT 13.5 s 12.0 - 14.7 09/21/2016 [facility] Hgb 13.9 g/dL 14.0 - 18.0 09/21/2016 [facility] MCV 96.1 fL 80.0 - 94.0 09/21/2016 [facility] Hct 40.2 % 42.0 - 54.0 09/21/2016 [facility] MCH 33.3 pg 27.0 - 31.0 09/21/2016 [facility] MCHC 34.7 g/dL 32.0 - 36.0 09/21/2016 [facility] RBC 4.18 M/CMM 4.70 - 6.10 09/21/2016 [facility] Platelet 145 K/CMM 133 - 450 09/21/2016 [facility] RDW 13.7 % 11.5 - 14.5 09/21/2016 [facility] MPV 8.0 fL 7.4 - 10.4 09/21/2016 [facility] WBC 6.5 K/CMM 3.7 - 10.4 09/21/2016 [facility] D-Dimer 0.35 ug/mL FEU 09/21/2016 [facility] Chest 1view DX Chest 1view DX Study: Chest 1view DX portable 06/21/2016 0816 hours Clinical Indication: Chest pain; Comparison: Chest 07/03/2016 FINDINGS: The cardiac silhouette is moderately enlarged, post sternotomy. Intracardiac devices terminate within the right heart. Right paratracheal soft tissue prominence is unchanged. The lungs are emphysematous but are incompletely inflated. No pneumonia, vascular congestion or pleural effusion is seen. IMPRESSION: No acute abnormality. SL: [id number] 09/21/2016 - - Read by: Ryan Andino MD Dictated Date/time: 09/21/16 08:36 Electronically Signed by: Ryan Andino MD 09/21/16 08:37 FINAL REPORT [facility] ELECTROLYTES Potassium Lvl 3.9 meq/L 3.5 - 5.1 07/04/2016 [facility] ELECTROLYTES Chloride Lvl 105 meq/L 95 - 109 07/04/2016 [facility] ELECTROLYTES Calcium Lvl 7.8 mg/dL 8.5 - 10.5 07/04/2016 [facility] ELECTROLYTES CO2 27 meq/L 24 - 32 07/04/2016 [facility] ELECTROLYTES eGFR 63 mL/min/1.73m2 07/04/2016 Result Comment: The eGFR is calculated using the CKD-EPI formula. In most young, healthy individuals the eGFR will be >90 mL/min/1.73m2. The eGFR declines with age. An eGFR of 60-89 may be normal in some populations, particularly the elderly, for whom the CKD-EPI formula has not been extensively validated. Use of the eGFR is not recommended in the following populations: Individuals with unstable creatinine concentrations, including patients and those with serious co-morbid conditions. Patients with extremes in muscle mass or diet. The data above are obtained from the National Kidney Disease Education Program (NKDEP) which additionally recommends that when the eGFR is used in patients with extremes of body mass index for purposes of drug dosing, the eGFR should be multiplied by the estimated BMI. [facility] ELECTROLYTES Creatinine Lvl 1.11 mg/dL 0.50 - 1.40 07/04/2016 [facility] ELECTROLYTES BUN 23 mg/dL 7 - 22 07/04/2016 [facility] ELECTROLYTES Sodium Lvl 141 meq/L 135 - 145 07/04/2016 [facility] ELECTROLYTES Glucose Lvl 97 mg/dL 70 - 99 07/04/2016 [facility] ELECTROLYTES AGAP 12.9 meq/L 10.0 - 20.0 07/04/2016 [facility] HEMATOLOGY Monocytes 6.8 % 2.0 - 12.0 07/04/2016 [facility] HEMATOLOGY Lymphocytes 10.3 % 20.0 - 40.0 07/04/2016 [facility] HEMATOLOGY Segs 81.2 % 45.0 - 75.0 07/04/2016 [facility] HEMATOLOGY Segs-Bands # 6.0 K/CMM 1.5 - 8.1 07/04/2016 [facility] HEMATOLOGY Basophils 0.2 % 0.0 - 1.0 07/04/2016 [facility] Eosinophils 1.5 % 0.0 - 4.0 07/04/2016 [facility] Monocytes # 0.5 K/CMM 0.0 - 0.8 07/04/2016 [facility] Lymphocytes # 0.8 K/CMM 1.0 - 5.5 07/04/2016 [facility] Eosinophils # 0.1 K/CMM 0.0 - 0.5 07/04/2016 [facility] Hct 41.8 % 42.0 - 54.0 07/04/2016 [facility] Hgb 14.4 g/dL 14.0 - 18.0 07/04/2016 [facility] RBC 4.39 M/CMM 4.70 - 6.10 07/04/2016 [facility] WBC 7.3 K/CMM 3.7 - 10.4 07/04/2016 [facility] MPV 7.8 fL 7.4 - 10.4 07/04/2016 [facility] Platelet 114 K/CMM 133 - 450 07/04/2016 [facility] RDW 13.7 % 11.5 - 14.5 07/04/2016 [facility] MCHC 34.4 g/dL 32.0 - 36.0 07/04/2016 [facility] MCH 32.8 pg 27.0 - 31.0 07/04/2016 [facility] MCV 95.2 fL 80.0 - 94.0 07/04/2016 [facility] BLOOD BANK RESULTS ABO/Rh O POS 07/03/2016 [facility] BLOOD BANK RESULTS Antibody Scrn Negative (07/03/16 10:28 AM) 07/03/2016 [facility] CHEM PANEL Creatinine Lvl 1.34 mg/dL 0.50 - 1.40 07/03/2016 [facility] CHEM PANEL eGFR 50 mL/min/1.73m2 07/03/2016 Result Comment: The eGFR is calculated using the CKD-EPI formula. In most young, healthy individuals the eGFR will be >90 mL/min/1.73m2. The eGFR declines with age. An eGFR of 60-89 may be normal in some populations, particularly the elderly, for whom the CKD-EPI formula has not been extensively validated. Use of the eGFR is not recommended in the following populations: Individuals with unstable creatinine concentrations, including patients and those with serious co-morbid conditions. Patients with extremes in muscle mass or diet. The data above are obtained from the National Kidney Disease Education Program (NKDEP) which additionally recommends that when the eGFR is used in patients with extremes of body mass index for purposes of drug dosing, the eGFR should be multiplied by the estimated BMI. [facility] HEMATOLOGY Platelet 127 K/CMM 133 - 450 07/03/2016 [facility] HEMATOLOGY PTT 31.1 s 22.9 - 35.8 07/03/2016 [facility] CARDIAC ENZYMES Total CK 44 unit/L - 07/03/2016 [facility] CARDIAC ENZYMES Troponin-I null 0.00 - 0.40 07/03/2016 [facility] CARDIAC ENZYMES Total CK 42 unit/L - 07/03/2016 [facility] CARDIAC ENZYMES Troponin-I null 0.00 - 0.40 07/03/2016 [facility] CARDIAC ENZYMES Troponin-I null 0.00 - 0.40 07/03/2016 [facility] CARDIAC ENZYMES BNP 136 pg/mL <=100 pg/mL 07/03/2016 [facility] CARDIAC ENZYMES Total CK 48 unit/L - 07/03/2016 [facility] CHEM PANEL eGFR 47 mL/min/1.73m2 07/03/2016 Result Comment: The eGFR is calculated using the CKD-EPI formula. In most young, healthy individuals the eGFR will be >90 mL/min/1.73m2. The eGFR declines with age. An eGFR of 60-89 may be normal in some populations, particularly the elderly, for whom the CKD-EPI formula has not been extensively validated. Use of the eGFR is not recommended in the following populations: Individuals with unstable creatinine concentrations, including patients and those with serious co-morbid conditions. Patients with extremes in muscle mass or diet. The data above are obtained from the National Kidney Disease Education Program (NKDEP) which additionally recommends that when the eGFR is used in patients with extremes of body mass index for purposes of drug dosing, the eGFR should be multiplied by the estimated BMI. [facility] CHEM PANEL BUN 25 mg/dL 7 - 22 07/03/2016 [facility] CHEM PANEL Glucose Lvl 126 mg/dL 70 - 99 07/03/2016 [facility] CHEM PANEL Chloride Lvl 104 meq/L 95 - 109 07/03/2016 [facility] CHEM PANEL Potassium Lvl 3.8 meq/L 3.5 - 5.1 07/03/2016 [facility] CHEM PANEL Sodium Lvl 139 meq/L 135 - 145 07/03/2016 [facility] CHEM PANEL Creatinine Lvl 1.43 mg/dL 0.50 - 1.40 07/03/2016 [facility] CHEM PANEL Total Protein 7.4 g/dL 6.4 - 8.4 07/03/2016 [facility] CHEM PANEL Calcium Lvl 8.6 mg/dL 8.5 - 10.5 07/03/2016 [facility] CHEM PANEL CO2 28 meq/L 24 - 32 07/03/2016 [facility] CHEM PANEL Alk Phos 108 unit/L 39 - 136 07/03/2016 [facility] CHEM PANEL AST 11 unit/L 0 - 37 07/03/2016 [facility] CHEM PANEL ALT 21 unit/L 0 - 65 07/03/2016 [facility] CHEM PANEL Albumin Lvl 3.9 g/dL 3.5 - 5.0 07/03/2016 [facility] CHEM PANEL Bili Total 0.3 mg/dL 0.2 - 1.3 07/03/2016 [facility] CHEM PANEL A/G Ratio 1.1 0.7 - 1.6 07/03/2016 [facility] CHEM PANEL Globulin 3.5 g/dL 2.7 - 4.2 07/03/2016 [facility] CHEM PANEL B/C Ratio 17 6 - 25 07/03/2016 [facility] CHEM PANEL AGAP 10.8 meq/L 10.0 - 20.0 07/03/2016 [facility] HEMATOLOGY Segs 76.2 % 45.0 - 75.0 07/03/2016 [facility] HEMATOLOGY Lymphocytes 13.5 % 20.0 - 40.0 07/03/2016 [facility] HEMATOLOGY Eosinophils 1.3 % 0.0 - 4.0 07/03/2016 [facility] HEMATOLOGY Monocytes 6.8 % 2.0 - 12.0 07/03/2016 [facility] HEMATOLOGY Basophils 2.2 % 0.0 - 1.0 07/03/2016 [facility] HEMATOLOGY Segs-Bands # 6.6 K/CMM 1.5 - 8.1 07/03/2016 [facility] HEMATOLOGY Lymphocytes # 1.2 K/CMM 1.0 - 5.5 07/03/2016 [facility] HEMATOLOGY Monocytes # 0.6 K/CMM 0.0 - 0.8 07/03/2016 [facility] HEMATOLOGY Eosinophils # 0.1 K/CMM 0.0 - 0.5 07/03/2016 [facility] HEMATOLOGY Basophils # 0.2 K/CMM 0.0 - 0.2 07/03/2016 [facility] INR 1.00 0.85 - 1.17 07/03/2016 [facility] PTT 29.8 s 22.9 - 35.8 07/03/2016 [facility] PT 13.5 s 12.0 - 14.7 07/03/2016 [facility] MPV 7.5 fL 7.4 - 10.4 07/03/2016 [facility] Platelet 133 K/CMM 133 - 450 07/03/2016 [facility] Hct 44.4 % 42.0 - 54.0 07/03/2016 [facility] RBC 4.65 M/CMM 4.70 - 6.10 07/03/2016 [facility] Hgb 15.3 g/dL 14.0 - 18.0 07/03/2016 [facility] WBC 8.6 K/CMM 3.7 - 10.4 07/03/2016 [facility] MCHC 34.4 g/dL 32.0 - 36.0 07/03/2016 [facility] RDW 14.3 % 11.5 - 14.5 07/03/2016 [facility] MCH 32.8 pg 27.0 - 31.0 07/03/2016 [facility] MCV 95.4 fL 80.0 - 94.0 07/03/2016 [facility] Chest 1view DX Chest 1view DX EXAM: Chest 1view DX DATE: 07/03/2016 12:00 AM CDT INDICATION: Chest pain COMPARISON: 03/24/2013. IMPRESSION: Stable moderately enlarged cardiac silhouette. Postoperative median sternotomy. Left cardiac device is unchanged. The lungs are mildly hyperexpanded. No focal consolidation, significant pleural effusion or pneumothorax. SL: [id number] 07/03/2016 - - Read by: Thomas Manning MD Dictated Date/time: 07/03/16 00:57 Electronically Signed by: Thomas Manning MD 07/03/16 00:58 FINAL REPORT [facility] wo contrast CT Knee wo contrast CT CT RIGHT KNEE WITHOUT CONTRAST WITH SAGITTAL AND CORONAL REFORMATTED IMAGES. HISTORY: Sprain of unspecified site of knee and leg, patient reports injury and knee pain. COMPARISON: Right knee radiography dated 02/12/2015. FINDINGS: No fracture is seen. No aggressive osseous erosion is identified. No soft tissue mass or loculated fluid collection. There is infiltrating edematous fat stranding of the superficial soft tissues of the knee. A small joint effusion is present. There is moderate degenerative medial compartment joint space narrowing with mild tricompartmental degenerative spurring. Moderate patellofemoral subchondral cystic change compatible with severe chondromalacia. IMPRESSION: 1. No fracture. 2. Moderate diffuse superficial soft tissue edema. 3. 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 4. Small joint effusion. SL: 14 02/20/2015 - - Read by: Jerel Bender MD Dictated Date/time: 02/20/15 15:21 Electronically Signed by: Jerel Bender MD 02/20/15 15:27 FINAL REPORT [facility] ELECTROLYTES AGAP 10.8 meq/L 10.0 - 20.0 09/25/2014 [facility] ELECTROLYTES Calcium Lvl 8.5 mg/dL 8.5 - 10.5 09/25/2014 [facility] ELECTROLYTES CO2 28 meq/L 24 - 32 09/25/2014 [facility] ELECTROLYTES Chloride Lvl 108 meq/L 95 - 109 09/25/2014 [facility] ELECTROLYTES Potassium Lvl 4.8 meq/L 3.5 - 5.1 09/25/2014 [facility] ELECTROLYTES Sodium Lvl 142 meq/L 135 - 145 09/25/2014 [facility] ELECTROLYTES Creatinine Lvl 1.2 mg/dL 0.5 - 1.4 09/25/2014 [facility] ELECTROLYTES BUN 22 mg/dL 7 - 22 09/25/2014 [facility] ELECTROLYTES Glucose Lvl 123 mg/dL 70 - 99 09/25/2014 2Interpretive Data: Adult reference range values reflect the clinical guidelines of the [place] [employer]. [facility] ELECTROLYTES eGFR 58 mL/min/1.73m2 09/25/2014 1Result Comment: The eGFR is calculated using the CKD-EPI formula. In most young, healthy individuals the eGFR will be >90 mL/min/1.73m2. The eGFR declines with age. An eGFR of 60-89 may be normal in some populations, particularly the elderly, for whom the CKD-EPI formula has not been extensively validated. Use of the eGFR is not recommended in the following populations: Individuals with unstable creatinine concentrations, including patients and those with serious co-morbid conditions. Patients with extremes in muscle mass or diet. The data above are obtained from the National Kidney Disease Education Program (NKDEP) which additionally recommends that when the eGFR is used in patients with extremes of body mass index for purposes of drug dosing, the eGFR should be multiplied by the estimated BMI. [facility] Eosinophils # 0.2 K/CMM 0.0 - 0.5 09/25/2014 [facility] Lymphocytes # 0.9 K/CMM 1.0 - 5.5 09/25/2014 [facility] Segs-Bands # 4.5 K/CMM 1.5 - 8.1 09/25/2014 [facility] Monocytes # 0.4 K/CMM 0.0 - 0.8 09/25/2014 [facility] Eosinophils 3.3 % 0.0 - 4.0 09/25/2014 [facility] Monocytes 7.2 % 2.0 - 12.0 09/25/2014 [facility] Lymphocytes 14.9 % 20.0 - 40.0 09/25/2014 [facility] Basophils 0.4 % 0.0 - 1.0 09/25/2014 [facility] Macrocyte 1+ *ABN* (09/25/14 10:55 AM) None Seen 09/25/2014 [facility] Segs 74.2 % 45.0 - 75.0 09/25/2014 [facility] PTT 30.2 s 22.9 - 35.8 09/25/2014 4Interpretive Data: Heparin Therapeutic Range: 57 - 92 Seconds [facility] PT 12.8 s 12.0 - 14.7 09/25/2014 [facility] INR 0.96 0.85 - 1.17 09/25/2014 3Interpretive Data: RECOMMENDED RANGES FOR PROTIME INR: 2.0-3.0 for most medical and surgical thromboembolic states. 2.5-3.5 for artificial heart valves and recurrent embolism. INR SHOULD BE USED ONLY FOR PATIENTS ON STABLE ANTICOAGULANT THERAPY. [facility] MPV 8.0 fL 7.4 - 10.4 09/25/2014 [facility] WBC 6.1 K/CMM 3.7 - 10.4 09/25/2014 [facility] Hgb 13.9 g/dL 14.0 - 18.0 09/25/2014 [facility] RBC 4.03 M/CMM 4.70 - 6.10 09/25/2014 [facility] Hct 40.0 % 42.0 - 54.0 09/25/2014 [facility] HEMATOLOGY MCV 99.2 fL 80.0 - 94.0 09/25/2014 [facility] HEMATOLOGY MCHC 34.9 g/dL 32.0 - 36.0 09/25/2014 [facility] HEMATOLOGY MCH 34.6 pg 27.0 - 31.0 09/25/2014 [facility] HEMATOLOGY RDW 13.4 % 11.5 - 14.5 09/25/2014 [facility] HEMATOLOGY Platelet 158 K/CMM 133 - 450 09/25/2014 [facility] LIPIDS CHD Risk 4.54 4.00 - 7.30 09/25/2014 [facility] LIPIDS VLDL 51 09/25/2014 [facility] LIPIDS LDL (Calculated) 94 mg/dL <=99 mg/dL 09/25/2014 [facility] LIPIDS HDL 41 mg/dL >=61 mg/dL 09/25/2014 [facility] LIPIDS Chol 186 mg/dL <=199 mg/dL 09/25/2014 [facility] LIPIDS Trig 256 mg/dL <=149 mg/dL 09/25/2014 [facility] Vital Signs Vital Sign Value Date Comments Source Temperature Oral (F) 98 F 10/01/2017 [facility] Heart Rate 60 10/01/2017 [facility] Respitory Rate 16 10/01/2017 [facility] Systolic (mm Hg) 162 10/01/2017 [facility] Diastolic (mm Hg) 68 10/01/2017 [facility] Temperature Oral (F) 97.9 F 10/01/2017 [facility] Systolic (mm Hg) 168 10/01/2017 [facility] Diastolic (mm Hg) 70 10/01/2017 [facility] Heart Rate 64 10/01/2017 [facility] Respitory Rate 16 10/01/2017 [facility] Systolic (mm Hg) 175 10/01/2017 [facility] Diastolic (mm Hg) 75 10/01/2017 [facility] Respitory Rate 16 10/01/2017 [facility] Heart Rate 69 10/01/2017 [facility] Temperature Oral (F) 98.9 F 10/01/2017 [facility] BMI Calculated 33.45 09/17/2017 [facility] Weight 118.182 09/17/2017 [facility] Height 187.96 cm 09/17/2017 [facility] Systolic (mm Hg) 115 02/03/2017 [facility] Diastolic (mm Hg) 71 02/03/2017 [facility] Heart Rate 71 02/03/2017 [facility] Temperature Oral (F) 98.2 F 02/03/2017 [facility] Resp[facility] Rate 14 02/03/2017 [facility] Systolic (mm Hg) 115 02/03/2017 [facility] Diastolic (mm Hg) 71 02/03/2017 [facility] Heart Rate 69 02/03/2017 [facility] Temperature Oral (F) 98.1 F 02/03/2017 [facility] Respitory Rate 14 02/03/2017 [facility] Respitory Rate 14 02/03/2017 [facility] Heart Rate 70 02/03/2017 [facility] Temperature Oral (F) 97.7 F 02/03/2017 [facility] Systolic (mm Hg) 122 02/03/2017 [facility] Diastolic (mm Hg) 72 02/03/2017 [facility] Weight 118.182 02/01/2017 [facility] BMI Calculated 33.45 02/01/2017 [facility] Height 187.96 cm 02/01/2017 [facility] Weight 118.182 02/01/2017 [facility] BMI Calculated 33.45 02/01/2017 [facility] Height 187.96 cm 02/01/2017 [facility] Systolic (mm Hg) 117 09/23/2016 [facility] Diastolic (mm Hg) 63 09/23/2016 [facility] Respitory Rate 16 09/23/2016 [facility] Heart Rate 69 09/23/2016 [facility] Temperature Oral (F) 97.5 F 09/23/2016 [facility] Heart Rate 66 09/23/2016 [facility] Respitory Rate 16 09/23/2016 [facility] Systolic (mm Hg) 152 09/23/2016 [facility] Diastolic (mm Hg) 75 09/23/2016 [facility] Respitory Rate 18 09/23/2016 [facility] Heart Rate 65 09/23/2016 [facility] Systolic (mm Hg) 161 09/23/2016 [facility] Diastolic (mm Hg) 82 09/23/2016 [facility] Temperature Oral (F) 97.5 F 09/23/2016 [facility] Temperature Oral (F) 98.0 F 09/23/2016 [facility] Height 187.96 cm 09/21/2016 [facility] Weight 118.182 09/21/2016 [facility] BMI Calculated 33.45 09/21/2016 [facility] Weight 118.182 09/21/2016 [facility] BMI Calculated 33.45 09/21/2016 [facility] Height 187.96 cm 09/21/2016 [facility] Temperature Oral (F) 98.3 F 07/04/2016 [facility] Respitory Rate 18 07/04/2016 [facility] Systolic (mm Hg) 101 07/04/2016 [facility] Diastolic (mm Hg) 55 07/04/2016 [facility] Respitory Rate 22 07/04/2016 [facility] Systolic (mm Hg) 132 07/04/2016 [facility] Diastolic (mm Hg) 63 07/04/2016 [facility] Respitory Rate 20 07/04/2016 [facility] Systolic (mm Hg) 124 07/04/2016 [facility] Diastolic (mm Hg) 71 07/04/2016 [facility] Temperature Oral (F) 97.5 F 07/04/2016 [facility] Temperature Oral (F) 97.9 F 07/04/2016 [facility] Height 187.96 cm 07/03/2016 [facility] BMI Calculated 33.22 07/03/2016 [facility] Weight 117.358 07/03/2016 [facility] Heart Rate 65 07/03/2016 [facility] Weight 118.182 07/03/2016 [facility] Height 157.48 cm 07/03/2016 [facility] BMI Calculated 47.65 07/03/2016 [facility] Systolic (mm Hg) 179 02/12/2015 [facility] Diastolic (mm Hg) 84 02/12/2015 [facility] Heart Rate 65 02/12/2015 [facility] Respitory Rate 18 02/12/2015 [facility] Heart Rate 65 02/12/2015 [facility] Respitory Rate 18 02/12/2015 [facility] Temperature Oral (F) 98.2 F 02/12/2015 [facility] Systolic (mm Hg) 187 02/12/2015 [facility] Diastolic (mm Hg) 83 02/12/2015 [facility] Height 187.96 cm 02/12/2015 [facility] Respitory Rate 18 02/12/2015 [facility] Temperature Oral (F) 97.7 F 02/12/2015 [facility] Weight 77.273 02/12/2015 [facility] BMI Calculated 21.87 02/12/2015 [facility] Heart Rate 61 02/12/2015 [facility] Systolic (mm Hg) 174 02/12/2015 [facility] Diastolic (mm Hg) 93 02/12/2015 [facility] Diastolic (mm Hg) 80 09/25/2014 [facility] Respitory Rate 20 09/25/2014 [facility] Heart Rate 64 09/25/2014 [facility] Systolic (mm Hg) 184 09/25/2014 [facility] Temperature Oral (F) 97.7 F 09/25/2014 [facility] BMI Calculated 35.38 09/25/2014 [facility] Weight 125 09/25/2014 [facility] Height 187.96 cm 09/25/2014 [facility] Encounters Location Location Details Encounter Type Encounter Number Reason For Visit Attending Provider ADM Date DC Date Status Source [facility] Bedded Outpatient [id number] Royal Mccann 09/26/2014 09/27/2014 [facility] [id number] Denise Farazujusta 02/12/2015 02/12/2015 [facility] Outpatient [id number] Celso Schauder 02/20/2015 02/21/2015 [facility] OP Therapy Patients [id number] Celso Schauder 02/26/2015 03/28/2015 [facility] Inpatient [id number] Royal Mccann 07/03/2016 07/04/2016 [facility] Observation [id number] Royal Thomasalla 09/21/2016 09/23/2016 [facility] Inpatient [id number] Nica Delgado 02/01/2017 02/03/2017 [facility] Discharged Inpatient [id number] FILIBERTO MADRID MD 06/13/2017 06/16/2017 [facility] Outpatient [id number] Royal Serratoa 09/17/2017 09/18/2017 [facility] Inpatient [id number] Celso Schauder 09/28/2017 10/01/2017 [facility] OP Therapy Patients [id number] Celso Schauder 11/10/2017 12/10/2017 [facility] Departed Emergency Room [id number] JULIANO MANNING MD 03/27/2018 03/27/2018 [facility] Procedures Procedure Code Date Perfomer Comments Source INTRODUCTION OF ANTI-INFLAMMATORY INTO JOINTS, PERC APPROACH [id number] 06/15/2017 JULIUS [facility] Ablation [id number] 11/09/2011 [facility] Ablation [id number] 11/09/2011 [facility] 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<sup>1</sup> [id number] 11/09/2001 [facility] 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<sup>1</sup> [id number] 11/09/2001 [facility] Catheterization of left heart [id number] [facility] Permanent cardiac pacemaker procedure [id number] [facility] Stent placement<sup>2</sup> [id number] multiple stents [facility] Catheterization of left heart [id number] [facility] Permanent cardiac pacemaker procedure [id number] [facility] Stent placement<sup>2</sup> [id number] multiple stents [facility] Appendectomy [id number] [facility] Tonsillectomy [id number] [facility] Appendectomy [id number] [facility] Tonsillectomy [id number] [facility]
[2018-12-31] MEDS ORDERED: SODIUM CHLORIDE 0.9% 1000ML 1,000 ML IV STA (18:16)
[2018-12-31] MEDS ORDERED: KETOROLAC TROMETHAMINE 30 MG/ML VIAL IV ONE (18:30)
[2018-12-31] MEDS ORDERED: PIPER-TAZ 3.375 GM 50 ML IV ONE (18:30)
[2018-12-31] MEDS ORDERED: VANCOMYCIN 1GM/NS 250 ML 250 ML IV ONE (18:30)
[2018-12-31 19:12] LABS: BASOPHILS % 0.3 % (0.0-1.0); EOSINOPHILS # (AUTO) 0.2 (0.0-0.4); EOSINOPHILS % 2.7 % (0.0-6.0); HEMATOCRIT 39.1 % (38.2-49.6); HEMOGLOBIN 13.3 g/dL (14.0-18.0); LYMPHOCYTES # (AUTO) 0.7 (1.0-3.2); LYMPHOCYTES % 10.3 % (18.0-39.1); MEAN CORPUSCULAR HEMOGLOBIN 32.8 pg (28-32); MEAN CORPUSCULAR VOLUME 96.5 fL (81-99); MONOCYTES # (AUTO) 0.5 (0.2-0.8); MONOCYTES % 7.2 % (4.4-11.3); NEUTROPHILS # (AUTO) 5.3 (2.1-6.9); NEUTROPHILS % 79.2 % (38.7-80.0); PLATELET COUNT 139 x10e3/uL (140-360); RED BLOOD COUNT 4.05 x10e6/uL (4.3-5.7); RED CELL DISTRIBUTION WIDTH 13.7 % (11.7-14.4)
[2018-12-31 19:20] LABS: CLARITY,URINE SL CLOUDY (CLEAR); COLOR,URINE YELLOW (YELLOW)
[2018-12-31 19:21] LABS: BILIRUBIN,URINE NEGATIVE (NEGATIVE); KETONES,URINE NEGATIVE (NEGATIVE); LEUKOCYTE ESTERASE ,URINE NEGATIVE (NEGATIVE); NITRITE,URINE NEGATIVE (NEGATIVE); PROTEIN,URINE DIPSTICK NEGATIVE (NEGATIVE); URINE UROBILINOGEN 0.2 mg/dL (0.2 - 1)
[2018-12-31 19:24] LABS: ALBUMIN 3.7 g/dL (3.5-5.0); ALBUMIN/GLOBULIN RATIO 1.2 (0.8-2.0); ANION GAP 15.1 mmol/L (8-16); CALCIUM 9.3 mg/dL (8.4-10.2); CREATININE, SERUM 1.72 mg/dL (0.72-1.25); POTASSIUM 4.1 mmol/L (3.5-5.1)
--- NOTE | 2018-12-31 19:25 | Diagnostic Imaging Report ---
EXAM: CT Abdomen and Pelvis WITHOUT contrast INDICATION: ^STONE PROTOCOL. Back pain. Possible kidney stone. COMPARISON: None TECHNIQUE: Abdomen and pelvis were scanned utilizing a multidetector helical scanner from the lung base to the pubic symphysis without administration of IV contrast. Absence of intravenous contrast decreases sensitivity for detection of focal lesions and vascular pathology. Coronal and sagittal reformations were obtained. Routine protocol was performed. IV CONTRAST: None ORAL CONTRAST: Water COMPLICATIONS: None RADIATION DOSE: Total DLP: 917.39 mGy*cm Estimated effective dose: (DLP x 0.015 x size factor) mSv CTDIvol has been reviewed. It is below the limits set by the Radiation Protocol Committee (RPC). FINDINGS: LINES and TUBES: Partially visualized pacemaker leads. LOWER THORAX: Bibasilar atelectasis and mild scarring. Moderate cardiomegaly. Coronary artery calcifications. Small sliding hiatal hernia. HEPATOBILIARY: No focal hepatic lesions. No biliary ductal dilation. GALLBLADDER: No radio-opaque stones or sludge. No wall thickening. SPLEEN: Splenomegaly measuring 14.5 cm in AP dimension. PANCREAS: No focal masses or ductal dilatation. ADRENALS: No adrenal nodules KIDNEYS/URETERS: No hydronephrosis. No cystic or solid mass lesions. 0.4 cm and 0.3 cm stone in the lower pole of the left kidney. 0.4 cm stone in the distal left ureter, roughly 1 cm away from the UVJ junction. Mild inflammatory changes extending from the left renal pelvis into the bladder surrounding the left ureter and left retroperitoneum. Mild left hydronephrosis. GI TRACT: No abnormal distention, wall thickening, or evidence of bowel obstruction. Appendix is not clearly identified. There is however no fat stranding or adenopathy in the right lower quadrant to suggest appendicitis. PELVIC ORGANS/BLADDER: Prostate measures 5.8 cm in transverse dimension. Bladder is compressed. LYMPH NODES: No lymphadenopathy. VESSELS: There is severe atherosclerotic disease in the aorta and major arterial branches. PERITONEUM / RETROPERITONEUM: No free air or fluid. BONES: There are degenerative changes in the lumbar spine. Schmorl's node defect in the superior endplate of L3 vertebral body. Moderate disc space narrowing with posterior disc osteophyte L5-S1. SOFT TISSUES: 3.1 x 4.1 cm fat-containing umbilical hernia with a neck of 2.6 cm. IMPRESSION: 1. 0.4 cm distal left ureteral stone causing mild left hydroureter and left hydronephrosis with inflammatory change around the left kidney and left ureter. Correlate with urinary analysis for possible superimposed infection. 2. 2 additional small stones in lower pole of the left kidney. 3. Prostate enlargement. Signed by: Dr. Franco France M.D. on 12/31/2018 7:21 PM
[2018-12-31 19:28] LABS: BACTERIA,URINE FEW /HPF
[2018-12-31 19:29] LABS: MUCUS,URINE FEW (RARE)
--- NOTE | 2018-12-31 21:22 | NUR ---
NO APPARENT ADVERSE REACTION TO MEDICATIONS. AWAKE ALERT SKIN W/D RESP NONLAB. NAD NOTED.
== END 2018-12-31 21:22 | disposition home or self-care (01) ==
LOC: ER 16:53
DX: M54.5 Low back pain (principal); R10.9 Unspecified abdominal pain; R30.0 Dysuria; N20.1 Calculus of ureter; R21 Rash and other nonspecific skin eruption; L03.114 Cellulitis of left upper limb; I10 Essential (primary) hypertension; I51.9 Heart disease, unspecified
CPT/HCPCS: 36415; 74176; 80053; 81001; 83605; 85025; 87040; 87086; 99284; J1885; J2543; J3370; J7030

== ENCOUNTER 2019-01-02 01:45 | Emergency (ER) | payer MEDICARE ==
[~2019-01-02] VITALS: Ht 188 cm; Wt 117.9 kg
--- OUTSIDE RECORDS SUMMARY | 2019-01-02 01:51 | XMS REPORT | Continuity of Care Document ---
Author Author [facility] Interface Address Unknown Phone Unavailable Problems Problem Status Onset Date Classification Date Reported Comments Source CHEST PAIN Active 09/08/2018 [facility] Presence of left artificial knee joint 12/14/2017 03/17/2018 [facility] Rita Z96.652 LEFT TOTAL KNEE REPLACEMENT Active 10/27/2017 [facility] Rita CAD/CMF Active 09/17/2017 [facility] UNK Active 08/10/2017 [facility] CHEST PAIN WITH EKG CHANGES Active 07/02/2016 [facility] Cardiomegaly Active 08/31/2015 Problem 03/27/2018 [facility] Chest pain Active 08/31/2015 Problem 03/27/2018 [facility] Dyspnea Active 08/31/2015 Problem 03/27/2018 [facility] 924.11CONTUSION OF KNEE, LEFT Active 02/16/2015 [facility] Discharge Diagnosis: Contusion of knee, right 02/12/2015 02/14/2015 [facility] Discharge Diagnosis: Abrasions of multiple sites 02/12/2015 02/14/2015 [facility] KNEE PAIN Active 02/10/2015 [facility] 413.9 Active 09/13/2014 [facility] 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 Problem 03/17/2018 [facility] Chest [facility] on exertion Active Problem 03/17/2018 [facility] Coronary artery disease Active Problem 03/17/2018 [facility]D - Gastro-esophageal reflux disease Active Problem 03/17/2018 [facility] Heart attack Resolved Problem 03/17/2018 [facility] Heart failure Active Problem 03/17/2018 [facility] Hypertension Active Problem 03/17/2018 [facility] Premature ventricular contraction Resolved Problem 03/30/2015 [facility] Sleep apnea<sup>1</sup> Active Problem 03/17/2018 uses CPAP [facility] Rita Nandini Stent placement<sup>2</sup> Resolved Problem 03/17/2018 x 5 [facility] Rita Nandini Pain in left knee 03/17/2018 [facility] [place] Muscle weakness 03/17/2018 [facility] [place] Stiffness of left knee, not elsewhere classified 03/17/2018 [facility] [place] Difficulty in walking, not elsewhere classified 03/17/2018 [facility] Rita Premature ventricular contraction Resolved Problem 03/17/2018 [facility] [place] BI KNEE Active [facility] [place] CHEST PAIN, UNSPECIFIED Active [facility] UNSTABLE ANGINA Active [facility] UNILATERAL PRIMARY OSTEOARTHRITIS, LEFT Active [facility] Medications Medication Details Route Status Patient Instructions Ordering Provider Order Date Source Aspirin 325 MG Enteric Coated Tablet 325 mg=1 tab, PO, BID, 0 Refill(s) Active 10/01/2017 [facility] Acetaminophen 325 MG / Hydrocodone Bitartrate 7.5 MG Oral Tablet [[place] 7.5/325] 1-2 tab, PO, Q6H, PRN Pain, X 14 day, # 50 tab, 0 Refill(s), given to patient Active 10/01/2017 [facility] dexamethasone (ANES) Route: IV, Drug form: INJ, ONCE, Stop date: 09/29/17 10:48:00 [employer] Inactive 09/29/2017 [facility] ondansetron (ANES) Route: IV, Drug form: INJ, ONCE, Stop date: 09/29/17 10:48:00 [employer] Inactive 09/29/2017 [facility] Plavix 75 mg, 1 tab, Route: PO, Drug form: TAB, Daily, Dosing Weight 118.182, kg, Start date: 09/29/17 9:00:00 [employer], Duration: 30 day, Stop date: 10/29/17 8:59:00 CSTNotes: (Same As: Plavix) No Longer Active 09/29/2017 [facility] Lisinopril 2.5 mg, 0.5 tab, Route: PO, Drug form: TAB, Daily, Dosing Weight 118.182, kg, Start date: 09/29/17 9:00:00 [employer], Duration: 30 day, Stop date: 10/29/17 8:59:00 CSTNotes: (Same as: Prinivil, Zestril) No Longer Active 09/29/2017 [facility] isosorbide mononitrate extended release 60 mg, 2 tab, Route: PO, Drug form: ERTAB, Daily, Dosing Weight 118.182, kg, Start date: 09/29/17 9:00:00 [employer], Duration: 30 day, Stop date: 10/29/17 8:59:00 [employer] No Longer Active 09/29/2017 [facility] Mexiletine 150 mg, 1 cap, Route: PO, Drug form: CAP, BID, Dosing Weight 118.182, kg, Start date: 09/28/17 21:00:00 [employer], Duration: 30 day, Stop date: 10/28/17 9:00:00 CSTNotes: (Same as: Mexitil) No Longer Active 09/29/2017 [facility] carvedilol 12.5 mg, 1 tab, Route: PO, Drug form: TAB, Q12H, Dosing Weight 118.182, kg, Start date: 09/28/17 21:00:00 [employer], Duration: 30 day, Stop date: 10/28/17 20:59:00 CSTNotes: Give with food. (Same As: Coreg) No Longer Active 09/29/2017 [facility] Aspirin 325 MG Enteric Coated Tablet 325 mg, 1 tab, Route: PO, Drug form: TAB, BID, Dosing Weight 118.182, kg, Start date: 09/28/17 17:00:00 [employer], Duration: 30 day, Stop date: 10/28/17 16:59:00 CSTNotes: Take with food. No Longer Active 09/28/2017 [facility] Docusate Sodium 100 MG Oral Capsule 100 mg, 1 cap, Route: PO, Drug form: CAP, BID, Dosing Weight 118.182, kg, Start date: 09/28/17 17:00:00 [employer], Duration: 30 day, Stop date: 10/28/17 16:59:00 CSTNotes: (Same as: Colace) (Do Not Crush) No Longer Active 09/28/2017 [facility] pantoprazole 40 mg, 1 tab, Route: PO, Drug form: ECTAB, Before Dinner, Dosing Weight 118.182, kg, Start date: 09/28/17 16:30:00 [employer], Duration: 30 day, Stop date: 10/27/17 16:30:00 CSTNotes: Tablet should not be c hewed or crushed. (Same as: Protonix) No Longer Active 09/28/2017 [facility] Cefazolin 1 gm, Route: IV, Q8H, Dosing Weight 118.182, kg, Start date: 09/28/17 16:00:00 [employer], Duration: 1 doses or times, Stop date: 09/28/17 23:59:00 [employer], ABX Indication: Surgical ProphylaxisNotes: (Same As: Anc ef, Kefzol) MEDICATION WASTE Product Size: 1000 mg Product Wasted: ___ mg Inactive 09/28/2017 [facility] phenol topical 1.4% spray 1 spray, Route: TOP, PRN, Drug form: SPRY, PRN Sore Throat, Start date: 09/28/17 13:42:00 [employer], Duration: 30 day, Stop date: 10/28/17 13:41:00 CSTNotes: Chloraseptic [place] (Same as: Chloraseptic, Sore Throat [place]) WASTE: F/P - Black; E - Fatwire Trash Bin No Longer Active 09/28/2017 [facility] Dilaudid 2 mg, 1 tab, Route: PO, Drug form: TAB, Q3H, PRN Pain Score 7-10, Start date: 09/28/17 10:48:00 [employer], Duration: 30 day, Stop date: 10/28/17 10:47:00 CSTNotes: (Same as: Dilaudid) No Longer Active 09/28/2017 [facility] Acetaminophen 325 MG / Hydrocodone Bitartrate 7.5 MG Oral Tablet [[place] 7.5/325] 1 tab, Route: PO, Drug Form: TAB, Dosing Weight 118.182, kg, Q4H, PRN Pain Score 4-6, Start date: 09/28/17 9:40:00 [employer], Duration: 30 day, Stop date: 10/28/17 9:39:00 CSTNotes: Same as [place] 325-7.5mg Do not exceed 4gm/day of acetaminophen. No Longer Active 09/28/2017 [facility] Dulcolax Laxative 5 mg, 1 tab, Route: PO, Drug form: ECTAB, Q24H, Dosing Weight 118.182, kg, PRN Constipation, Start date: 09/28/17 9:40:00 [employer], Duration: 30 day, Stop date: 10/28/17 9:39:00 CSTNotes: (Same As: Dulcolax, Correctol) (Do Not Crush) "Do Not Crush" No Longer Active 09/28/2017 [facility] Diphenhydramine 25 mg, 1 tab, Route: PO, Drug form: TAB, Q6H, Dosing Weight 118.182, kg, PRN Itching, Start date: 09/28/17 9:40:00 [employer], Duration: 30 day, Stop date: 10/28/17 9:39:00 [employer] No Longer Active 09/28/2017 [facility] Al hydroxide/Mg hydroxide/simethicone 200 mg-200 mg-20 mg/5 mL oral suspension 30 ml, Route: PO, Drug Form: SUSP, Dosing Weight 118.182, kg, Q4H, PRN Indigestion, Start date: 09/28/17 9:40:00 [employer], Duration: 30 day, Stop date: 10/28/17 9:39:00 CSTNotes: (aluminum hydroxide-magnesium hyd- simethicone [id number]/5ml 30 ml ud NIA) No Longer Active 09/28/2017 [facility] Ondansetron 4 mg, 2 mL, Route: IVP, Drug form: INJ, Q8H, Dosing Weight 118.182, kg, PRN Nausea & Vomiting, Start date: 09/28/17 9:40:00 [employer], Duration: 30 day, Stop date: 10/28/17 9:39:00 CSTNotes: (Same as: [place]) MEDICATION WASTE Product Size: 4 mg Product Wasted: ___ mg No Longer Active 09/28/2017 [facility] Acetaminophen 650 mg, 2 tab, Route: PO, Drug form: TAB, Q4H, Dosing Weight 118.182, kg, PRN Pain 1-3/Temp > 100.4 F, Start date: 09/28/17 9:40:00 [employer], Duration: 30 day, Stop date: 10/28/17 9:39:00 CSTNotes: Do not exceed 4 gm/day. (Same as: Tylenol) No Longer Active 09/28/2017 [facility] Hydromorphone 0.5 mg, Route: IVP, Q3H, Dosing Weight 118.182, kg, PRN Pain Score 7-10, Start date: 09/28/17 9:40:00 [employer], Duration: 30 day, Stop date: 10/28/17 9:39:00 [employer] Inactive 09/28/2017 [facility] Lactated Ringers IV 1,000 mL 1,000 mL, Rate: 100 ml/hr, Infuse over: 10 hr, Route: IV, Dosing Weight 118.182 kg, Total Volume: 1,000, Start date: 09/28/17 9:40:00 [employer], Duration: 30 day, Stop date: 10/28/17 9:39:00 [employer], 2.5, m2 No Longer Active 09/28/2017 [facility] Tramadol 50 mg, 1 tab, Route: PO, Drug form: TAB, Q4H, Dosing Weight 118.182, kg, PRN Pain Score 4-6, Start date: 09/28/17 9:40:00 [employer], Duration: 30 day, Stop date: 10/28/17 9:39:00 [employer], ..Notes: Not to exceed 400mg/day. (Same As: Ultram) No Longer Active 09/28/2017 [facility] Promethazine 6.25 mg, Route: IVPB, ONCE, Dosing Weight 118.182, kg, PRN Nausea & Vomiting, Start date: 09/28/17 9:34:00 [employer] No Longer Active 09/28/2017 [facility] Hydromorphone 0.5 mg, Route: IVP, Q5Min, Dosing Weight 118.182, kg, PRN Pain Score 7-10, Start date: 09/28/17 9:34:00 [employer], Duration: 4 doses or times, Stop date: Limited # of times No Longer Active 09/28/2017 [facility] Oxycodone 10 mg, Route: PO, Drug form: TAB, Q4H, Dosing Weight 118.182, kg, PRN Pain Score 7-10, Start date: 09/28/17 9:34:00 [employer], Duration: 30 day, Stop date: 10/28/17 9:33:00 [employer] No Longer Active 09/28/2017 [facility] Fentanyl 25 microgram, Route: IVP, Q5Min, Dosing Weight 118.182, kg, PRN Pain Score 4-6, Priority: Routine, Start date: 09/28/17 9:34:00 [employer], Duration: 4 doses or times, Stop date: Limited # of times No Longer Active 09/28/2017 [facility] Albuterol 0.83 MG/ML Inhalant Solution 2.49 mg, Route: NEB, Q20Min, Dosing Weight 118.182, kg, PRN Wheezing, Priority: Routine, Start date: 09/28/17 9:34:00 [employer], Duration: 30 day, Stop date: 10/28/17 9:33:00 [employer] No Longer Active 09/28/2017 [facility] Naloxone 0.4 mg, Route: IVP, Q2MIN, Dosing Weight 118.182, kg, PRN Narcotic Reversal, Start date: 09/28/17 9:34:00 [employer], Duration: 8 doses or times, Stop date: Limited # of times No Longer Active 09/28/2017 [facility] Flumazenil 0.2 mg, Route: IVP, PRN, Dosing Weight 118.182, kg, PRN Benzodiazepine Reversal, Initial dose, Start date: 09/28/17 9:34:00 [employer], Duration: 30 day, Stop date: 10/28/17 9:33:00 [employer] No Longer Active 09/28/2017 [facility] Ondansetron 4 mg, Route: IVP, ONCE, Dosing Weight 118.182, kg, PRN Nausea & Vomiting, Start date: 09/28/17 9:34:00 [employer] No Longer Active 09/28/2017 [facility] Meperidine 12.5 mg, Route: IVP, Q30Min, Dosing Weight 118.182, kg, PRN Other -See Comment, For shivering, Start date: 09/28/17 9:34:00 [employer], Duration: 2 doses or times, Stop date: Limited # of times No Longer Active 09/28/2017 [facility] Diphenhydramine 12.5 mg, Route: IVP, Drug form: INJ, Q6H, Dosing Weight 118.182, kg, PRN Itching, Start date: 09/28/17 9:34:00 [employer], Duration: 30 day, Stop date: 10/28/17 9:33:00 [employer] No Longer Active 09/28/2017 [facility] Acetaminophen 1,000 mg, Route: IV, ONCE, Dosing Weight 118.182, kg, PRN Pain Score 1-3, Start date: 09/28/17 9:34:00 [employer] Inactive 09/28/2017 [facility] Labetalol 10 mg, Route: IVP, Q5Min, Dosing Weight 118.182, kg, PRN Elevated BP, Start date: 09/28/17 9:34:00 [employer], Duration: 5 doses or times, Stop date: Limited # of times No Longer Active 09/28/2017 [facility] Ketorolac 30 mg, Route: IVP, ONCE, Dosing Weight 118.182, kg, Start date: 09/28/17 9:34:00 [employer], Stop date: 09/28/17 9:34:00 [employer] No Longer Active 09/28/2017 [facility] Hydralazine 10 mg, Route: IVP, Q20Min, Dosing Weight 118.182, kg, PRN Elevated BP, Start date: 09/28/17 9:34:00 [employer], Duration: 2 doses or times, Stop date: Limited # of times No Longer Active 09/28/2017 [facility] neostigmine (ANES) Route: IV, Drug form: INJ, ONCE, Stop date: 09/28/17 9:21:00 [employer] Inactive 09/28/2017 [facility] glycopyrrolate (ANES) Route: IV, Drug form: INJ, ONCE, Stop date: 09/28/17 9:21:00 [employer] Inactive 09/28/2017 [facility] ondansetron (ANES) Route: IV, Drug form: INJ, ONCE, Stop date: 09/28/17 9:21:00 [employer] Inactive 09/28/2017 [facility] rocuronium (ANES) Route: IV, Drug form: INJ, ONCE, Stop date: 09/28/17 8:12:00 [employer] Inactive 09/28/2017 [facility] propofol (ANES) Route: IV, Drug form: INJ, ONCE, Stop date: 09/28/17 8:12:00 [employer] Inactive 09/28/2017 [facility] fentaNYL (ANES) Route: IV, Drug form: INJ, ONCE, Stop date: 09/28/17 8:11:00 [employer] Inactive 09/28/2017 [facility] lidocaine (ANES) Route: IV, Drug form: INJ, ONCE, Stop date: 09/28/17 8:11:00 [employer] Inactive 09/28/2017 [facility] midazolam (ANES) Route: IV, Drug form: SOLN, ONCE, Stop date: 09/28/17 8:06:00 [employer] Inactive 09/28/2017 [facility] ceFAZolin (ANES) 1000 mg Route: IV, Drug form: INJ, Start date: 09/28/17 7:51:00 [employer], Stop date: 09/28/17 8:51:00 [employer] Inactive 09/28/2017 [facility] Lactated Ringers Injection IV (ANES) 1000 mL Route: IV, Total Volume: 1,000, Start date: 09/28/17 7:37:00 [employer], Stop date: 09/28/17 8:37:00 [employer] Inactive 09/28/2017 [facility] Amiodarone 200 mg, 0 Refill(s) Inactive 09/28/2017 [facility] Allopurinol 400 mg, 0 Refill(s) Inactive 09/28/2017 [facility] Calcium Chloride 0.0014 MEQ/ML / Potassium Chloride 0.004 MEQ/ML / Sodium Chloride 0.103 MEQ/ML / Sodium Lactate 0.028 MEQ/ML Injectable Solution 1,000 mL, Rate: 25 ml/hr, Infuse over: 40 hr, Route: IV, Dosing Weight 118.182 kg, Total Volume: 1,000, Start date: 09/28/17 7:13:00 [employer], Duration: 30 day, Stop date: 10/28/17 7:12:00 [employer], 2.5, m2 Inactive 09/28/2017 [facility] Sodium Chloride 0.9% IV 1000 mL 1,000 mL, Rate: 25 ml/hr, Infuse over: 40 hr, Route: IV, Dosing Weight 118.182 kg, Total Volume: 1,000, Start date: 09/28/17 7:13:00 [employer], Duration: 30 day, Stop date: 10/28/17 7:12:00 [employer], 2.5, m2 Inactive 09/28/2017 [facility] ropivacaine 100 mL, Route: InFILtration(local), Drug Form: INJ, Dosing Weight 118.182, kg, ONCALL, Start date: 09/28/17 7:00:00 [employer], Duration: 1 doses or timesNotes: NOT FOR IV use Ropivacaine 5 mg/mL (4 9.25 mL) Epinephrine 1 mg/mL (0.5 mL) Clonidine 0.1 mg/mL (0.8 mL) Ketorolac 30 mg/mL (1 mL) Normal Saline 48.45 mL No Longer Active 09/28/2017 [facility] Allopurinol 100 Mg Tablet, 40 Mg Oral Daily Active 06/16/2017 [facility] Potassium Chloride 20 Meq Tab.er.prt, 20 Meq Oral Daily Active 06/16/2017 [facility] Carvedilol 12.5 Mg Tablet, 6.25 Mg Oral Twice A Day Active 06/13/2017 [facility] Furosemide 40 Mg Tablet, 120 Mg Oral Daily Active 06/13/2017 [facility] Naproxen 500 Mg Tablet.dr, 500 Mg Oral Twice A Day Active 06/13/2017 [facility] Benadryl 25 mg, 1 tab, Route: PO, Drug form: TAB, Q6H, Dosing Weight 118.182, kg, PRN as needed for itching, Start date: 02/03/17 3:05:00 CDT, Duration: 30 day, Stop date: 03/05/17 3:04:00 CDT Inactive 02/03/2017 [facility] Lisinopril 20 mg, 1 tab, Route: PO, Drug form: TAB, Daily, Dosing Weight 118.182, kg, Priority: NOW, Start date: 02/01/17 12:38:00 CDT, Duration: 30 day, Stop date: 03/03/17 9:00:00 CDTNotes: (Same as: Prinivil, Zestril) No Longer Active 02/01/2017 [facility] Labetalol 20 mg, 4 mL, Route: IVP, Drug form: INJ, Q2H, Dosing Weight 118.182, kg, PRN Hypertension, Start date: 02/01/17 12:36:00 CDT, Duration: 30 day, Stop date: 03/03/17 12:35:00 CDTNotes: (Same as: Normodyne, Trandate) Push over 2 minutes Give bolus over 2-3 minutes. No Longer Active 02/01/2017 [facility] torsemide 20 mg, 1 tab, Route: PO, Drug form: TAB, [id number], Dosing Weight 118.182, kg, Start date: 02/01/17 9:00:00 CDT, Duration: 30 day, Stop date: 03/01/17 9:00:00 CDTNotes: (Same As: Demadex) No Longer Active 02/01/2017 [facility] Saline Flush 0.9% 10 ml, Route: IVP, Drug Form: INJ, Dosing Weight 118.182, kg, Q12H, Start date: 02/01/17 9:00:00 CDT, Duration: 30 day, Stop date: 03/02/17 21:00:00 CDTNotes: (Same as: BD Posiflush) No Longer Active 02/01/2017 [facility] potassium chloride 20 mEq, 1 tab, Route: PO, Drug form: ERTAB, Daily, Dosing Weight 118.182, kg, Start date: 02/01/17 9:00:00 CDT, Duration: 30 day, Stop date: 03/02/17 9:00:00 CDTNotes: (Same as: K-Dur 20) "Do Not Crush" With food and full glass of water No Longer Active 02/01/2017 [facility] Ranexa 1,000 mg, 2 tab, Route: PO, Drug form: TAB, BID, Dosing Weight 118.182, kg, Start date: 02/01/17 9:00:00 CDT, Duration: 30 day, Stop date: 03/02/17 17:00:00 CDTNotes: Same as Ranexa "Do Not Crush" No Longer Active 02/01/2017 [facility] pantoprazole 40 mg, 1 tab, Route: PO, Drug form: ECTAB, Daily, Dosing Weight 118.182, kg, Start date: 02/01/17 9:00:00 CDT, Duration: 30 day, Stop date: 03/02/17 9:00:00 CDTNotes: Tablet should not be chewed or c rushed. (Same as: Protonix) No Longer Active 02/01/2017 [facility] Mexiletine 150 mg, 1 cap, Route: PO, Drug form: CAP, BID, Dosing Weight 118.182, kg, Start date: 02/01/17 9:00:00 CDT, Duration: 30 day, Stop date: 03/02/17 17:00:00 CDTNotes: (Same as: Mexitil) No Longer Active 02/01/2017 [facility] Lisinopril 2.5 mg, 0.5 tab, Route: PO, Drug form: TAB, Daily, Dosing Weight 118.182, kg, Start date: 02/01/17 9:00:00 CDT, Duration: 30 day, Stop date: 03/02/17 9:00:00 CDTNotes: (Same as: Prinivil, Zestril) Inactive 02/01/2017 [facility] isosorbide mononitrate extended release 60 mg, 2 tab, Route: PO, Drug form: ERTAB, Daily, Dosing Weight 118.182, kg, Start date: 02/01/17 9:00:00 CDT, Duration: 30 day, Stop date: 03/02/17 9:00:00 CDTNotes: (Same as:Imdur) "Do Not Crush" Take on empty stomach/ full glass of water. Do not crush No Longer Active 02/01/2017 [facility] clopidogrel 75 mg, 1 tab, Route: PO, Drug form: TAB, Daily, Dosing Weight 118.182, kg, Start date: 02/01/17 9:00:00 CDT, Duration: 30 day, Stop date: 03/02/17 9:00:00 CDTNotes: (Same As: Plavix) No Longer Active 02/01/2017 [facility] carvedilol 6.25 mg, 2 tab, Route: PO, Drug form: TAB, Q12H, Dosing Weight 118.182, kg, Start date: 02/01/17 9:00:00 CDT, Duration: 30 day, Stop date: 03/02/17 21:00:00 CDTNotes: Give with food. (Same As: Coreg) No Longer Active 02/01/2017 [facility] aspirin 81 mg tablet, enteric coated 81 mg, 1 tab, Route: PO, Drug form: ECTAB, Daily, Dosing Weight 118.182, kg, Start date: 02/01/17 9:00:00 CDT, Duration: 30 day, Stop date: 03/02/17 9:00:00 CDTNotes: Do not crush or chew. (Same As: Ecotrin) No Longer Active 02/01/2017 [facility] sodium chloride 0.9% 1000 ml INJ 1,000 mL 1,000 mL, Rate: 75 ml/hr, Infuse over: 13.3 hr, Route: IV, Dosing Weight 118.182 kg, Total Volume: 1,000, Start date: 02/01/17 8:24:00 CDT, Duration: 30 day, Stop date: 03/03/17 8:23:00 CDT No Longer Active 02/01/2017 [facility] Acetaminophen 325 MG / Hydrocodone Bitartrate 7.5 MG Oral Tablet 1 tab, Route: PO, Drug Form: TAB, Dosing Weight 118.182, kg, Q4H, PRN Pain Score 4-6, Start date: 02/01/17 8:09:00 CDT, Duration: 30 day, Stop date: 03/03/17 8:08:00 CDTNotes: Same as [place] 325-7.5mg Do not exceed 4gm/day of acetaminophen. No Longer Active 02/01/2017 [facility] Benadryl 25 mg, 0.5 mL, Route: IVP, Drug form: INJ, ONCE, Dosing Weight 118.182, kg, PRN Itching, Start date: 02/01/17 5:25:00 CDTNotes: (Same as: Benadryl) Inactive 02/01/2017 [facility] Saline Flush 0.9% 10 ml, Route: IVP, Drug Form: INJ, Dosing Weight 118.182, kg, PRN, PRN Line Flush, Start date: 02/01/17 3:37:00 CDT, Duration: 30 day, Stop date: 03/03/17 3:36:00 CDTNotes: (Same as: BD Posiflush) No Longer Active 02/01/2017 [facility] Sodium Chloride 0.154 MEQ/ML Injectable Solution 1,000 mL, Rate: 75 ml/hr, Infuse over: 13.3 hr, Route: IV, Dosing Weight 118.182 kg, Total Volume: 1,000, Start date: 02/01/17 3:37:00 CDT, Duration: 30 day, Stop date: 03/03/17 3:36:00 CDT No Longer Active 02/01/2017 [facility] Ondansetron 4 mg, 1 tab, Route: PO, Drug form: TAB, Q8H, Dosing Weight 118.182, kg, PRN Nausea & Vomiting, Start date: 02/01/17 3:37:00 CDT, Duration: 30 day, Stop date: 03/03/17 3:36:00 CDTNotes: (Same as: Zofran) No Longer Active 02/01/2017 [facility] Morphine 2 mg, 1 mL, Route: IVP, Drug form: INJ, Q15Min, Dosing Weight 118.182, kg, PRN Chest Pain, Start date: 02/01/17 3:37:00 CDT, Duration: 2 doses or times, Stop date: Limited # of timesNotes: (Same as:M ORPhine Sulfate) No Longer Active 02/01/2017 [facility] Nitroglycerin 0.4 mg, 1 tab, Route: SL, Drug form: TAB, Q5Min, Dosing Weight 118.182, kg, PRN Chest Pain, Start date: 02/01/17 3:37:00 CDT, Duration: 3 doses or times, Stop date: Limited # of timesNotes: (Same as: Nitroquick, Nitrostat) "Do Not Crush" Sublingual tablet No Longer Active 02/01/2017 [facility] Aspirin 325 MG Oral Tablet 325 mg, 1 tab, Route: PO, Drug form: TAB, ONCE, Dosing Weight 118.182, kg, Start date: 02/01/17 3:37:00 CDT, Stop date: 02/01/17 3:37:00 CDTNotes: Take with food. Inactive 02/01/2017 [facility] Nitroglycerin 0.4 MG Sublingual Tablet 0.4 mg, 1 tab, Route: SL, Drug form: TAB, Q5Min, Dosing Weight 118.182, kg, PRN Chest Pain, Start date: 02/01/17 2:14:00 CDT, Duration: 30 day, Stop date: 03/03/17 2:13:00 CDTNotes: (Same as:Nitroquick, Nitrostat) "Do Not Crush" Sublingual tablet No Longer Active 02/01/2017 [facility] Morphine 2 mg, 1 mL, Route: IVP, Drug form: INJ, ONCE, Dosing Weight 118.182, kg, Priority: STAT, Start date: 02/01/17 2:12:00 CDT, Stop date: 02/01/17 2:12:00 CDTNotes: (Same as:MORPhine Sulfate) Inactive 02/01/2017 [facility] Ondansetron 4 mg, Route: IVP, Drug form: INJ, ONCE, Dosing Weight 118.182, kg, Priority: STAT, Start date: 02/01/17 0:17:00 CDT, Stop date: 02/01/17 0:17:00 CDT Inactive 02/01/2017 [facility] Morphine 4 mg, Route: IVP, ONCE, Dosing Weight 118.182, kg, Priority: STAT, Start date: 02/01/17 0:17:00 CDT, Stop date: 02/01/17 0:17:00 CDT Inactive 02/01/2017 [facility] Nitroglycerin 0.02 MG/MG Topical Ointment 1 inch, Route: TOP, Dosing Weight 118.182, kg, ONCE, STAT, Start date: 02/01/17 0:15:00 CDT, Stop date: 02/01/17 0:15:00 CDT Inactive 02/01/2017 [facility] Saline Flush 0.9% 10 mL, Route: IVP, Drug Form: INJ, Dosing Weight 118.182, kg, PRN, PRN Line Flush, Start date: 01/31/17 23:23:00 CDT, Duration: 30 day, Stop date: 03/02/17 23:22:00 CDTNotes: (Same as: BD Posiflush) No Longer Active 02/01/2017 [facility] Nitroglycerin 0.4 mg, 1 tab, Route: SL, Drug form: TAB, Q5Min, Dosing Weight 118.182, kg, PRN Chest Pain, Start date: 09/23/16 8:12:00 [employer], Duration: 3 doses or times, Stop date: Limited # of timesNotes: (Same as: Nitroquick, Nitrostat) "Do Not Crush" Sublingual tablet Inactive 09/23/2016 [facility] Morphine 4 mg, 2 mL, Route: IVP, Drug form: INJ, Q2H, Dosing Weight 118.182, kg, PRN Pain Score 7-10, Start date: 09/23/16 8:12:00 [employer], Stop date: 10/23/16 8:11:00 CSTNotes: (Same as:MORPhine Sulfate) Inactive 09/23/2016 [facility] Sodium Chloride 0.154 MEQ/ML Injectable Solution 750 mL, Rate: 75 ml/hr, Infuse over: 10 hr, Route: IV, Dosing Weight 118.182 kg, Total Volume: 750, Start date: 09/23/16 8:12:00 [employer], Duration: 10 hr, Stop date: 09/23/16 18:11:00 [employer] Inactive 09/23/2016 [facility] 12 HR ranolazine 1000 MG Extended Release Tablet [Ranexa] 1,000 mg=1 tab, PO, BID, # 60 tab, 0 Refill(s) Active 09/23/2016 [facility] Amiodarone 200 mg, 1 tab, Route: PO, Drug form: TAB, Daily, Dosing Weight 118.182, kg, Start date: 09/22/16 20:00:00 [employer], Duration: 30 day, Stop date: 10/21/16 20:00:00 CSTNotes: (Same as: Cordarone) No Longer Active 09/23/2016 [facility] pantoprazole 40 mg, 1 tab, Route: PO, Drug form: ECTAB, After Dinner, Dosing Weight 118.182, kg, Start date: 09/22/16 17:00:00 [employer], Duration: 30 day, Stop date: 10/21/16 17:00:00 CSTNotes: Tablet should not be ch ewed or crushed. (Same as: Protonix) No Longer Active 09/22/2016 [facility] torsemide 20 mg, 1 tab, Route: PO, Drug form: TAB, Daily, Dosing Weight 118.182, kg, Start date: 09/22/16 9:00:00 [employer], Duration: 30 day, Stop date: 10/21/16 9:00:00 CSTNotes: (Same As: Demadex) No Longer Active 09/22/2016 [facility] Mexiletine 150 mg, 1 cap, Route: PO, Drug form: CAP, BID, Dosing Weight 118.182, kg, Start date: 09/22/16 9:00:00 [employer], Duration: 30 day, Stop date: 10/21/16 17:00:00 CSTNotes: (Same as: Mexitil) No Longer Active 09/22/2016 [facility] Lisinopril 2.5 mg, 0.5 tab, Route: PO, Drug form: TAB, Daily, Dosing Weight 118.182, kg, Start date: 09/22/16 9:00:00 [employer], Duration: 30 day, Stop date: 10/21/16 9:00:00 CSTNotes: (Same as: Prinivil, Zestril) No Longer Active 09/22/2016 [facility] isosorbide mononitrate extended release 60 mg, 2 tab, Route: PO, Drug form: ERTAB, Daily, Dosing Weight 118.182, kg, Start date: 09/22/16 9:00:00 [employer], Duration: 30 day, Stop date: 10/21/16 9:00:00 CSTNotes: (Same as:Imdur) "Do Not Crush" Take on empty stomach/ full glass of water. Do not crush No Longer Active 09/22/2016 [facility] clopidogrel 75 mg, 1 tab, Route: PO, Drug form: TAB, Daily, Dosing Weight 118.182, kg, Start date: 09/22/16 9:00:00 [employer], Duration: 30 day, Stop date: 10/21/16 9:00:00 CSTNotes: (Same As: Plavix) No Longer Active 09/22/2016 [facility] carvedilol 6.25 mg, 0.5 tab, Route: PO, Drug form: TAB, Q12H, Dosing Weight 118.182, kg, Start date: 09/22/16 9:00:00 [employer], Duration: 30 day, Stop date: 10/21/16 21:00:00 CSTNotes: Give with food. (Same As: Coreg) No Longer Active 09/22/2016 [facility] Aspirin 81 MG Enteric Coated Tablet 81 mg, 1 tab, Route: PO, Drug form: ECTAB, Daily, Dosing Weight 118.182, kg, Start date: 09/22/16 9:00:00 [employer], Duration: 30 day, Stop date: 10/21/16 9:00:00 CSTNotes: Do not crush or chew. (Same As: Ecotrin) No Longer Active 09/22/2016 [facility] potassium chloride 20 mEq, 1 tab, Route: PO, Drug form: ERTAB, After Breakfast, Dosing Weight 118.182, kg, Start date: 09/22/16 8:30:00 [employer], Duration: 30 day, Stop date: 10/21/16 8:30:00 CSTNotes: (Same as: K-Dur 20) "Do Not Crush" With food and full glass of water No Longer Active 09/22/2016 [facility] Tramadol 50 mg, 1 tab, Route: PO, Drug form: TAB, Q6H, Dosing Weight 118.182, kg, PRN Pain Score 4-6, Start date: 09/21/16 21:22:00 [employer], Duration: 30 day, Stop date: 10/21/16 21:21:00 CSTNotes: Not to exceed 400mg/day. (Same As: Ultram) No Longer Active 09/22/2016 [facility] Enoxaparin 40 mg, 0.4 mL, Route: SUB-Q, Drug form: INJ, [id number], Dosing Weight 118.182, kg, Start date: 09/21/16 14:00:00 [employer], Duration: 30 day, Stop date: 10/20/16 14:00:00 CSTNotes: (Same as: Lovenox) No Longer Active 09/21/2016 [facility] sodium chloride 0.9% 1000 ml INJ 1,000 mL 1,000 mL, Rate: 75 ml/hr, Infuse over: 13.3 hr, Route: IV, Dosing Weight 118.182 kg, Total Volume: 1,000, Start date: 09/21/16 13:47:00 [employer], Duration: 30 day, Stop date: 10/21/16 13:46:00 [employer] No Longer Active 09/21/2016 [facility] Acetaminophen 650 mg, 2 tab, Route: PO, Drug form: TAB, Q4H, Dosing Weight 118.182, kg, PRN Pain 1-3/Temp > 100.4 F, Start date: 09/21/16 11:43:00 [employer], Duration: 30 day, Stop date: 10/21/16 11:42:00 CSTNotes: Do not exceed 4 gm/day. (Same as: Tylenol) No Longer Active 09/21/2016 [facility] Morphine 2 mg, 1 mL, Route: IVP, Drug form: INJ, Q4H, Dosing Weight 118.182, kg, PRN Pain Score 7-10, Start date: 09/21/16 11:43:00 [employer], Duration: 30 day, Stop date: 10/21/16 11:42:00 CSTNotes: (Same as:MORPhine Sulfate) No Longer Active 09/21/2016 [facility] Ondansetron 4 mg, 2 mL, Route: IVP, Drug form: INJ, Q6H, Dosing Weight 118.182, kg, PRN Nausea & Vomiting, Start date: 09/21/16 11:43:00 [employer], Duration: 30 day, Stop date: 10/21/16 11:42:00 CSTNotes: (Same as: Zofran) MEDICATION WASTE Product Size: 4 mg Product Wasted: ___ mg No Longer Active 09/21/2016 [facility] Docusate 100 mg, 1 cap, Route: PO, Drug form: CAP, BID, Dosing Weight 118.182, kg, PRN Constipation, Start date: 09/21/16 11:43:00 [employer], Duration: 30 day, Stop date: 10/21/16 11:42:00 CSTNotes: (Same as: Colace) (Do Not Crush) No Longer Active 09/21/2016 [facility] Morphine 4 mg, Route: IVP, ONCE, Dosing Weight 118.182, kg, Start date: 09/21/16 9:48:00 [employer], Stop date: 09/21/16 9:48:00 [employer] Inactive 09/21/2016 [facility] Lovenox 120 mg, Route: SUB-Q, Drug form: INJ, ONCE, Dosing Weight 118.182, kg, Priority: STAT, Start date: 09/21/16 9:22:00 [employer], Stop date: 09/21/16 9:22:00 [employer] Inactive 09/21/2016 [facility] Benadryl 12.5 mg, Route: IVP, ONCE, Dosing Weight 118.182, kg, Priority: STAT, Start date: 09/21/16 7:09:00 [employer], Stop date: 09/21/16 7:09:00 [employer] Inactive 09/21/2016 [facility] Sodium Chloride 0.154 MEQ/ML Injectable Solution 500 mL, 500 ml/hr, Infuse Over: 1 hr, Route: IV, ONCE, Priority: STAT, Dosing Weight 118.182 kg, Start date: 09/21/16 7:09:00 [employer], Duration: 1 doses or times, Stop date: 09/21/16 7:09:00 [employer] Inactive 09/21/2016 [facility] Morphine 4 mg, Route: IVP, ONCE, Dosing Weight 118.182, kg, Priority: STAT, Start date: 09/21/16 7:09:00 [employer], Stop date: 09/21/16 7:09:00 [employer] Inactive 09/21/2016 [facility] Ondansetron 4 mg, Route: IVP, ONCE, Dosing Weight 118.182, kg, Priority: STAT, Start date: 09/21/16 7:09:00 [employer], Stop date: 09/21/16 7:09:00 [employer] Inactive 09/21/2016 [facility] Nitroglycerin 0.4 mg, 1 tab, Route: SL, Drug form: TAB, Q5Min, Dosing Weight 118.182, kg, PRN Chest Pain, Start date: 09/21/16 7:09:00 [employer], Duration: 3 doses or times, Stop date: 10/21/16 0:00:00 CSTNotes: (Same a s:Nitroquick, Nitrostat) "Do Not Crush" Sublingual tablet No Longer Active 09/21/2016 [facility] Saline Flush 0.9% 10 mL, Route: IVP, Drug Form: INJ, Dosing Weight 118.182, kg, PRN, PRN Line Flush, Start date: 09/21/16 7:09:00 [employer], Duration: 30 day, Stop date: 10/21/16 7:08:00 CSTNotes: (Same as: BD Posiflush) No Longer Active 09/21/2016 [facility] isosorbide mononitrate extended release 60 mg, 2 tab, Route: PO, Drug form: ERTAB, QAM, Dosing Weight 117.358, kg, Start date: 07/04/16 9:00:00 CDT, Duration: 30 day, Stop date: 08/02/16 9:00:00 CDTNotes: (Same as:Imdur) "Do Not Crush" Take on empty stomach/ full glass of water. Do not crush Inactive 07/04/2016 [facility] Plavix 75 mg, 1 tab, Route: PO, Drug form: TAB, Daily, Dosing Weight 117.358, kg, Start date: 07/04/16 9:00:00 CDT, Duration: 30 day, Stop date: 08/02/16 9:00:00 CDTNotes: (Same As: Plavix) Inactive 07/04/2016 [facility] Amiodarone 200 mg, 1 tab, Route: PO, Drug form: TAB, Daily, Dosing Weight 117.358, kg, Start date: 07/04/16 9:00:00 CDT, Duration: 30 day, Stop date: 08/02/16 9:00:00 CDTNotes: (Same as: Cordarone) Inactive 07/04/2016 [facility] pantoprazole 40 mg, 1 tab, Route: PO, Drug form: ECTAB, Before Breakfast, Dosing Weight 117.358, kg, Start date: 07/04/16 7:30:00 CDT, Duration: 30 day, Stop date: 08/02/16 7:30:00 CDTNotes: Tablet should not be chewed or crushed. (Same as: Protonix) Inactive 07/04/2016 [facility] carvedilol 12.5 mg, 1 tab, Route: PO, Drug form: TAB, Q12H, Dosing Weight 117.358, kg, Start date: 07/03/16 21:00:00 CDT, Duration: 30 day, Stop date: 08/02/16 9:00:00 CDTNotes: Give with food. (Same As: Coreg) No Longer Active 07/04/2016 [facility] Mexiletine 150 mg, 1 cap, Route: PO, Drug form: CAP, Q12H, Dosing Weight 117.358, kg, Start date: 07/03/16 21:00:00 CDT, Duration: 30 day, Stop date: 08/02/16 9:00:00 CDTNotes: (Same as: Mexitil) No Longer Active 07/04/2016 [facility] Vitamin A 3000 iu, PO, Daily, 0 Refill(s) Active 07/03/2016 [facility] mexiletine 150 mg oral capsule 150 mg=1 cap, PO, BID, 0 Refill(s) Active 07/03/2016 [facility] Vitamin D3 5000 intl units oral capsule 5,000 IntlUnit=1 cap, PO, Daily, # 30 cap, 1 Refill(s) Active 07/03/2016 [facility] AMIODarone 200 mg oral tablet 200 mg=1 tab, PO, Daily, patient takes this dose art 8pm, 0 Refill(s) Active 07/03/2016 [facility] Aspirin 81 MG Enteric Coated Tablet 81 mg=1 tab, PO, Daily, # 90 tab, 3 Refill(s) Active 07/03/2016 [facility] Diphenhydramine 25 mg, 1 tab, Route: PO, Drug form: TAB, Bedtime, Dosing Weight 117.358, kg, PRN Insomnia, Start date: 07/03/16 13:20:00 CDT, Duration: 30 day, Stop date: 08/02/16 13:19:00 CDT No Longer Active 07/03/2016 [facility] Acetaminophen 325 MG / Hydrocodone Bitartrate 5 MG Oral Tablet 1 tab, Route: PO, Drug Form: TAB, Dosing Weight 117.358, kg, Q4H, PRN Pain Score 4-6, Start date: 07/03/16 13:20:00 CDT, Duration: 30 day, Stop date: 08/02/16 13:19:00 CDTNotes: (Same as: [place] 325/5) Do not exceed 4gm/day of acetaminophen. No Longer Active 07/03/2016 [facility] Nitroglycerin 0.4 mg, 1 tab, Route: SL, Drug form: TAB, Q5Min, Dosing Weight 117.358, kg, PRN Chest Pain, Start date: 07/03/16 13:20:00 CDT, Duration: 3 doses or times, Stop date: Limited # of timesNotes: (Same as :Nitroquick, Nitrostat) "Do Not Crush" Sublingual tablet No Longer Active 07/03/2016 [facility] Morphine 4 mg, 2 mL, Route: IVP, Drug form: INJ, Q2H, Dosing Weight 117.358, kg, PRN Pain Score 7-10, Start date: 07/03/16 13:20:00 CDT, Duration: 30 day, Stop date: 08/02/16 13:19:00 CDTNotes: (Same as:MORPhine Sulfate) No Longer Active 07/03/2016 [facility] Sodium Chloride 0.154 MEQ/ML Injectable Solution 250 mL, 250 ml/hr, Infuse Over: 1 hr, Route: IV, 250, Drug form: INJ, ONCE, Dosing Weight 117.358 kg, Start date: 07/03/16 13:20:00 CDT, Duration: 1 doses or times, Stop date: 07/03/16 13:20:00 CDT Inactive 07/03/2016 [facility] Sodium Chloride 0.154 MEQ/ML Injectable Solution 250 mL, 250 ml/hr, Infuse Over: 1 hr, Route: IV, 250, Drug form: INJ, ONCALL, Priority: Routine, Dosing Weight 117.358 kg, Start date: 07/03/16 10:00:00 CDT, Duration: 1 doses or times Inactive 07/03/2016 [facility] Enoxaparin 40 mg, 0.4 mL, Route: SUB-Q, Drug form: INJ, [id number], Dosing Weight 117.358, kg, Start date: 07/03/16 10:00:00 CDT, Duration: 30 day, Stop date: 08/01/16 10:00:00 CDTNotes: (Same as: Lovenox) No Longer Active 07/03/2016 [facility] Sodium Chloride 0.154 MEQ/ML Injectable Solution 750 mL, Rate: 75 ml/hr, Infuse over: 10 hr, Route: IV, Dosing Weight 117.358 kg, Total Volume: 750, Start date: 07/03/16 9:03:00 CDT, Duration: 10 hr, Stop date: 07/03/16 19:02:00 CDT Inactive 07/03/2016 [facility] Saline Flush 0.9% 10 ml, Route: IVP, Drug Form: INJ, Dosing Weight 117.358, kg, Q12H, Start date: 07/03/16 9:00:00 CDT, Duration: 30 day, Stop date: 08/01/16 21:00:00 CDT Inactive 07/03/2016 [facility] Nitroglycerin 0.4 mg, 1 tab, Route: SL, Drug form: TAB, Q5Min, Dosing Weight 117.358, kg, PRN Chest Pain, Start date: 07/03/16 9:00:00 CDT, Duration: 3 doses or times, Stop date: Limited # of timesNotes: (Same as: Nitroquick, Nitrostat) "Do Not Crush" Sublingual tablet Inactive 07/03/2016 [facility] Benadryl 50 mg, 1 cap, Route: PO, Drug form: CAP, TID, Dosing Weight 117.358, kg, PRN Itching, give dose NOW, Start date: 07/03/16 7:49:00 CDT, Duration: 30 day, Stop date: 08/02/16 7:48:00 CDTNotes: (Same as: Benadryl) No Longer Active 07/03/2016 [facility] Nitroglycerin 0.02 MG/MG Topical Ointment 0.5 inch, Route: TOP, Drug Form: OINT, Dosing Weight 118.182, kg, TID, Start date: 07/03/16 6:00:00 CDT, Duration: 30 day, Stop date: 08/01/16 18:00:00 CDTNotes: 1 gram is approximately 1 inch of nitroglycerin ointment (20 mg NTG per gram) (Same as:Nitro-Bid) No Longer Active 07/03/2016 [facility] Aspirin 81 MG Enteric Coated Tablet 81 mg, 1 tab, Route: PO, Drug form: ECTAB, Q24H, Dosing Weight 118.182, kg, Start date: 07/03/16 3:00:00 CDT, Duration: 30 day, Stop date: 08/01/16 3:00:00 CDTNotes: Do not crush or chew. (Same As: Ecotrin) No Longer Active 07/03/2016 [facility] Saline Flush 0.9% 10 ml, Route: IVP, Drug Form: INJ, Dosing Weight 118.182, kg, PRN, PRN Line Flush, Start date: 07/03/16 2:54:00 CDT, Duration: 30 day, Stop date: 08/02/16 2:53:00 CDTNotes: (Same as: BD Posiflush) No Longer Active 07/03/2016 [facility] Acetaminophen 650 mg, 2 tab, Route: PO, Drug form: TAB, Q4H, Dosing Weight 118.182, kg, PRN Headache 1-5, Start date: 07/03/16 2:54:00 CDT, Duration: 30 day, Stop date: 08/02/16 2:53:00 CDTNotes: Do not exceed 4 g m/day. (Same as: Tylenol) No Longer Active 07/03/2016 [facility] Ondansetron 4 mg, 1 tab, Route: PO, Drug form: TAB, Q8H, Dosing Weight 118.182, kg, PRN Nausea & Vomiting, Start date: 07/03/16 2:54:00 CDT, Duration: 30 day, Stop date: 08/02/16 2:53:00 CDTNotes: (Same as: Zofran) Inactive 07/03/2016 [facility] Morphine 4 mg, 2 mL, Route: IVP, Drug form: INJ, Q2H, Dosing Weight 118.182, kg, PRN Pain Score 7-10, Start date: 07/03/16 2:54:00 CDT, Duration: 30 day, Stop date: 08/02/16 2:53:00 CDTNotes: (Same as:MORPhine Sulfate) Inactive 07/03/2016 [facility] Nitroglycerin 0.4 mg, 1 tab, Route: SL, Drug form: TAB, Q5Min, Dosing Weight 118.182, kg, PRN Chest Pain, Start date: 07/03/16 2:54:00 CDT, Duration: 3 doses or times, Stop date: Limited # of timesNotes: (Same as: Nitroquick, Nitrostat) "Do Not Crush" Sublingual tablet Inactive 07/03/2016 [facility] Nitroglycerin 0.02 MG/MG Topical Ointment 2 inch, Route: TOP, Drug Form: OINT, Dosing Weight 118.182, kg, ONCE, STAT, Start date: 07/03/16 0:20:00 CDT, Stop date: 07/03/16 0:20:00 CDTNotes: 1 gram is approximately 1 inch of nitroglycerin ointment (20 mg NTG per gram) (Same as:Nitro-Bid) Inactive 07/03/2016 [facility] Ondansetron 4 mg, Route: IVP, Drug form: INJ, ONCE, Dosing Weight 118.182, kg, Priority: STAT, Start date: 07/03/16 0:20:00 CDT, Stop date: 07/03/16 0:20:00 CDT Inactive 07/03/2016 [facility] Morphine 4 mg, Route: IVP, ONCE, Dosing Weight 118.182, kg, Priority: STAT, Start date: 07/03/16 0:20:00 CDT, Stop date: 07/03/16 0:20:00 CDT Inactive 07/03/2016 [facility] Hydrocodone Bit/Acetaminophen (Hydrocodon-Acetaminophen 5-325) 1 Each Tablet, 1 Tab Oral As Needed Active 08/31/2015 [facility] Ondansetron 4 MG Oral Tablet [Zofran] 4 mg=1 tab, PO, BID, PRN Nausea, # 20 tab, 0 Refill(s) Active 02/12/2015 [facility] tramadol hydrochloride 50 MG Oral Tablet 50 mg=1 tab, PO, Q4H, PRN pain, # 24 tab, 0 Refill(s) Active 02/12/2015 [facility] Zofran ODT 4 mg, Route: PO, Drug form: TABDIS, ONCE, Dosing Weight 77.273, kg, Priority: STAT, Start date: 02/12/15 6:11:00, Stop date: 02/12/15 6:11:00 Inactive 02/12/2015 [facility] Morphine 4 mg, Route: IM, Drug form: INJ, ONCE, Dosing Weight 77.273, kg, Priority: STAT, Start date: 02/12/15 6:08:00, Stop date: 02/12/15 6:08:00 Inactive 02/12/2015 [facility] Acetaminophen 325 MG / Hydrocodone Bitartrate 5 MG Oral Tablet [[place] 5/325] 1 tab, Route: PO, Drug Form: TAB, Dosing Weight 77.273, kg, ONCE, STAT, Start date: 02/12/15 6:08:00, Stop date: 02/12/15 6:08:00 Inactive 02/12/2015 [facility] Tramadol 50 mg, PO, Q4-6H, Pain, # 20 tab, 0 Refill(s) Active 09/25/2014 [facility] torsemide 20 mg oral tablet 20 mg=1 tab, PO, Daily, 0 Refill(s) Active 09/25/2014 [facility] pantoprazole 40 mg oral enteric coated tablet See Instructions, PO, 1 tab Daily, 0 Refill(s)Special Instructions: 1 tab Daily Active 09/25/2014 [facility] gabapentin 100 MG Oral Capsule [Neurontin] 300 mg=3 cap, PO, TID, 0 Refill(s) Active 09/25/2014 [facility] lisinopril 5 mg oral tablet 5 mg=1 tab, PO, Daily, 0 Refill(s) Active 09/25/2014 [facility] clopidogrel 75 mg oral tablet 75 mg=1 tab, PO, Daily, 0 Refill(s) Active 09/25/2014 [facility] Spironolactone 50 MG Oral Tablet [Aldactone] 50 mg=1 tab, PO, Daily, 0 Refill(s) Active 09/25/2014 [facility] Alprazolam 0.25 Mg Tablet, Active 02/12/2013 [facility] Buspirone Hcl 5 Mg Tablet, Active 02/12/2013 [facility] Pantoprazole Sodium 40 Mg Tablet.dr, Active 02/12/2013 [facility] Ranolazine (Ranexa) 500 Mg Tab.sr.12h, Active 02/12/2013 [facility] Amiodarone Hcl 200 Mg Tablet Daily Active [facility] Aspirin (Aspir 81) 81 Mg Tablet. Daily Active [facility] Carvedilol 12.5 Mg Tablet Twice A Day Active [facility] Clopidogrel Bisulfate (Clopidogrel) 75 Mg Tablet Daily Active [facility] Isosorbide Mononitrate (Isosorbide Mononitrate Er) 60 Mg Tab.er.24h Daily Active [facility] Lisinopril 5 Mg Tablet Bedtime Active [facility] Mexiletine Hcl 150 Mg Capsule Twice A Day Active [facility] Nitroglycerin (Nitrostat) 0.4 Mg Tab.subl As Needed Active [facility] Pantoprazole Sodium (Protonix) 40 Mg Tablet. Twice A Day Active [facility] Torsemide 10 Mg Tablet Use As Directed Active TORSEMIDE 20 MG EVERY OTHER MORNING [facility] Allergies, Adverse Reactions, Alerts Substance Category Reaction Severity Reaction type Status Date Reported Comments Source morphine Assertion ITCH Mild Drug allergy Active [facility] [place] Immunizations Immunization Date Given Site Status Last Updated Comments Source diphtheria/pertussis, acel/tetanus adult 02/12/2015 [facility] Order Name Results Value Reference [...] IMPRESSION: No acute infiltrates or effusions. SL: [id number] 09/08/2018 - - Read by: Kandi Salazar MD Dictated Date/time: 09/08/18 02:39 Electronically Signed by: Kandi Salazar MD 09/08/18 02:40 FINAL REPORT [facility] Hct 33.6 % 42.0 - 54.0 10/01/2017 [facility] Hgb 11.5 g/dL 14.0 - 18.0 10/01/2017 [facility] Ext Lower Venous Doppler Unilat US [...] the left leg. Soft tissue edema. SL: [id number] 09/30/2017 - - Read by: Devante Flynn MD Dictated Date/time: 09/30/17 16:31 Electronically Signed by: Devante Flynn MD 09/30/17 16:34 FINAL REPORT [facility] Hgb 11.8 g/dL 14.0 - 18.0 09/30/2017 [facility] Hct 34.2 % 42.0 - 54.0 09/30/2017 [facility] Hct 36.2 % 42.0 - 54.0 09/29/2017 [facility] Hgb 12.5 g/dL 14.0 - 18.0 09/29/2017 [facility] BLOOD BANK RESULTS Antibody Scrn Negative (09/28/17 6:22 AM) 09/28/2017 [facility] BLOOD BANK RESULTS ABO/Rh O POS 09/28/2017 [facility] Knee 1-2 Views unilateral DX Knee 1-2 Views unilateral DX Patient Name: LAURA HORNE : 1940; Age: 77 years y/o Male MR: [id number] Study: 2 view examination of the left [...] Nic Romano MD 09/28/17 10:31 FINAL REPORT [facility] BLOOD [facility] RESULTS Antibody Scrn Negative (09/17/17 9:39 AM) 09/17/2017 [facility] BLOOD [facility] RESULTS ABO/Rh O POS 09/17/2017 [facility] CHEM PANEL A/G Ratio 1.2 0.7 - 1.6 09/17/2017 [facility] CHEM PANEL B/C Ratio 12 6 - 25 09/17/2017 [facility] CHEM PANEL Globulin 3.3 g/dL 2.7 - 4.2 09/17/2017 [facility] CHEM PANEL AGAP 11.1 meq/L 10.0 - 20.0 09/17/2017 [facility] CHEM PANEL eGFR 52 mL/min/1.73m2 09/17/2017 [...] should be multiplied by the estimated BMI. [facility] CHEM PANEL Alk Phos 99 unit/L 39 - 136 09/17/2017 [facility] CHEM PANEL ALT 23 unit/L 0 - 65 09/17/2017 [facility] CHEM PANEL AST 11 unit/L 0 - 37 09/17/2017 [facility] CHEM PANEL Bili Total 0.6 mg/dL 0.2 - 1.3 09/17/2017 [facility] CHEM PANEL Calcium Lvl 8.6 mg/dL 8.5 - 10.5 09/17/2017 [facility] CHEM PANEL CO2 30 meq/L 24 - 32 09/17/2017 [facility] CHEM PANEL Albumin Lvl 3.9 g/dL 3.5 - 5.0 09/17/2017 [facility] CHEM PANEL Total Protein 7.2 g/dL 6.4 - 8.4 09/17/2017 [facility] CHEM PANEL Creatinine Lvl 1.29 mg/dL 0.50 - 1.40 09/17/2017 [facility] CHEM PANEL BUN 15 mg/dL 7 - 22 09/17/2017 [facility] CHEM PANEL Chloride Lvl 104 meq/L 95 - 109 09/17/2017 [facility] CHEM PANEL Potassium Lvl 4.1 meq/L 3.5 - 5.1 09/17/2017 [facility] CHEM PANEL Glucose Lvl 110 mg/dL 70 - 99 09/17/2017 [facility] CHEM PANEL Sodium Lvl 141 meq/L 135 - 145 09/17/2017 [facility] HEMATOLOGY PT 13.1 s 12.0 - 14.7 09/17/2017 [facility] HEMATOLOGY PTT 31.3 s 22.9 - 35.8 09/17/2017 [facility] HEMATOLOGY INR 0.99 0.85 - 1.17 09/17/2017 [facility] MPV 8.0 fL 7.4 - 10.4 09/17/2017 [facility] HEMATOLOGY RDW 14.1 % 11.5 - 14.5 09/17/2017 [facility] MCHC 34.2 g/dL 32.0 - 36.0 09/17/2017 [facility] Platelet 161 K/CMM 133 - 450 09/17/2017 [facility] MCV 97.0 fL 80.0 - 94.0 09/17/2017 [facility] HEMATOLOGY MCH 33.1 pg 27.0 - 31.0 09/17/2017 [facility] HEMATOLOGY RBC 4.38 M/CMM 4.70 - 6.10 09/17/2017 [facility] HEMATOLOGY WBC 6.4 K/CMM 3.7 - 10.4 09/17/2017 [facility] HEMATOLOGY Eosinophils # 0.2 K/CMM 0.0 - 0.5 09/17/2017 [facility] HEMATOLOGY Segs 74.6 % 45.0 - 75.0 09/17/2017 [facility] HEMATOLOGY Monocytes 7.7 % 2.0 - 12.0 09/17/2017 [facility] HEMATOLOGY Lymphocytes 14.3 % 20.0 - 40.0 09/17/2017 [facility] HEMATOLOGY Monocytes # 0.5 K/CMM 0.0 - 0.8 09/17/2017 [facility] HEMATOLOGY Lymphocytes # 0.9 K/CMM 1.0 - 5.5 09/17/2017 [facility] HEMATOLOGY Segs-Bands # 4.7 K/CMM 1.5 - 8.1 09/17/2017 [facility] HEMATOLOGY Basophils 0.4 % 0.0 - 1.0 09/17/2017 [facility] HEMATOLOGY Eosinophils 3.0 % 0.0 - 4.0 09/17/2017 [facility] IMMUNOLOGY HIV Ag/Ab 4th Gen Negative *NA* (09/17/17 9:39 AM) Negative 09/17/2017 [facility] URINE AND STOOL UA Urobilinogen <=1.0 mg/dL 0.1 - 1.0 09/17/2017 [facility] URINE AND STOOL UA Sq Epi [...] UA Glucose Negative mg/dL Negative mg/dL 09/17/2017 [facility] URINE AND STOOL UA Protein Negative mg/dL Negative mg/dL 09/17/2017 [facility] URINE AND STOOL UA pH 6.0 5.0 - 8.0 09/17/2017 [facility] URINE AND STOOL UA Spec Grav 1.014 <=1.030 09/17/2017 [facility] URINE AND STOOL UA Turbidity Clear (09/17/17 9:39 AM) Clear 09/17/2017 [facility] URINE AND STOOL UA Color Yellow *NA* (09/17/17 9:39 AM) Yellow 09/17/2017 [facility] BLOOD BANK RESULTS RBC product Product available 1 (09/17/17 8:51 AM) 09/17/2017 Result Comment: 09/28/2017 07:36 [id number] notified [facility] blood is ready for pickup [facility] Bone length scanogram DX Bone length [...] Gino Baer MD 09/17/17 13:05 FINAL REPORT [facility] Chest 2 views DX Chest 2 [...] radiographic evidence of acute cardiopulmonary disease. SL: [id number] 09/17/2017 - - Read by: Gurdeep Oconnor MD Dictated Date/time: 09/17/17 11:22 Electronically Signed by: Gurdeep Oconnor MD 09/17/17 11:22 FINAL REPORT [facility] Knee 3 views DX Knee 3 [...] most pronounced in the patellofemoral compartment SL: [id number] 09/17/2017 - - Read by: Mary Villalpando MD Dictated Date/time: 09/17/17 13:21 Electronically Signed by: Mary Villalpando MD 09/17/17 13:24 FINAL REPORT [facility] Automated blood basophil count (count/volume) Automated blood basophil count (count/volume) 0.0 0.0 - 0.1 06/16/2017 [facility] Automated blood basophil count as percentage of total leukocytes Automated blood basophil count as percentage of total leukocytes 0.1 0.0 - 1.0 06/16/2017 [facility] Automated blood eosinophil count Automated blood eosinophil count 0.0 0.0 - 0.4 06/16/2017 [facility] Automated blood eosinophil count as percentage of total leukocytes Automated blood eosinophil count as percentage of total leukocytes 0.0 0.0 - 6.0 06/16/2017 [facility] Automated blood hematocrit (volume fraction) Automated blood hematocrit (volume fraction) 43.1 38.2 - 49.6 06/16/2017 [facility] Automated blood lymphocyte count as percentage ot total leukocytes Automated blood lymphocyte count as percentage ot total leukocytes 3.5 18.0 - 39.1 06/16/2017 [facility] Automated blood monocyte count as percentage of total leukocytes Automated blood monocyte count as percentage of total leukocytes 2.9 4.4 - 11.3 06/16/2017 [facility] Automated blood neutrophil count Automated blood neutrophil count 13.1 2.1 - 6.9 06/16/2017 [facility] Automated blood platelet count (count/volume) Automated blood platelet count (count/volume) 173 140 - 360 06/16/2017 [facility] Automated blood segmented neutrophil count as percentage of total leukocytes Automated blood segmented neutrophil count as percentage of total leukocytes 92.9 38.7 - 80.0 06/16/2017 [facility] Automated erythrocyte mean corpuscular hemoglobin (mass per erythrocyte) Automated erythrocyte mean corpuscular hemoglobin (mass per erythrocyte) 32.5 28 - 32 06/16/2017 [facility] Automated erythrocyte mean corpuscular hemoglobin concentration measurement (mass/volume) Automated erythrocyte mean corpuscular hemoglobin concentration measurement (mass/volume) 34.1 31 - 35 06/16/2017 [facility] Automated erythrocyte mean corpuscular volume Automated erythrocyte mean corpuscular volume 95.4 81 - 99 06/16/2017 [facility] Blood erythrocytes automated count (number/volume) Blood erythrocytes automated count (number/volume) 4.52 4.3 - 5.7 06/16/2017 [facility] Blood hemoglobin measurement (moles/volume) Blood hemoglobin measurement (moles/volume) 14.7 14.0 - 18.0 06/16/2017 [facility] Blood leukocytes automated count (number/volume) Blood leukocytes automated count (number/volume) 14.09 4.8 - 10.8 06/16/2017 [facility] Blood lymphocytes count (number/volume) Blood lymphocytes count (number/volume) 0.5 1.0 - 3.2 06/16/2017 [facility] Blood monocytes automated count (number/volume) Blood monocytes automated count (number/volume) 0.4 0.2 - 0.8 06/16/2017 [facility] Estimated glomerular filtration rate (GFR) determination Estimated glomerular filtration rate (GFR) determination 56 60 06/16/2017 [facility] Glucose measurement Glucose measurement 152 74 - 118 06/16/2017 [facility] Serum or plasma anion gap Serum or plasma anion gap 17.3 8 - 16 06/16/2017 [facility] Serum or plasma calcium measurement (mass/volume) Serum or plasma calcium measurement (mass/volume) 9.5 8.4 - 10.2 06/16/2017 [facility] Serum or plasma carbon dioxide, total measurement (moles/volume) Serum or plasma carbon dioxide, total measurement (moles/volume) 22 22 - 29 06/16/2017 [facility] Serum or plasma chloride measurement (moles/volume) Serum or plasma chloride measurement (moles/volume) 106 98 - 107 06/16/2017 [facility] Serum or plasma creatinine measurement (mass/volume) Serum or plasma creatinine measurement (mass/volume) 1.24 0.72 - 1.25 06/16/2017 [facility] Serum or plasma potassium measurement (moles/volume) Serum or plasma potassium measurement (moles/volume) 4.3 3.5 - 5.1 06/16/2017 [facility] Serum or plasma sodium measurement (moles/volume) Serum or plasma sodium measurement (moles/volume) 141 136 - 145 06/16/2017 [facility] Serum or plasma urea nitrogen measurement (mass/volume) Serum or plasma urea nitrogen measurement (mass/volume) 28 7 - 26 06/16/2017 [facility] Serum or plasma urea nitrogen/creatinine mass ratio Serum or plasma urea nitrogen/creatinine mass ratio 23 6 - 25 06/16/2017 [facility] Red Cell Distribution Width 13.0 11.7 - 14.4 06/16/2017 [facility] IM GRANULOCYTES % 0.6 0.0 - 1.0 06/16/2017 [facility] Absolute Immature Granulocyte (auto 0.09 0 - 0.1 06/16/2017 [facility] B-Type Natriuretic Peptide 155.8 0 - 100 06/15/2017 [facility] Plasma globulin measurement (mass/volume) Plasma globulin measurement (mass/volume) 2.9 2.3 - 3.5 06/14/2017 [facility] Serum or plasma alanine aminotransferase measurement (enzymatic activity/volume) Serum or plasma alanine aminotransferase measurement (enzymatic activity/volume) 16 0 - 55 06/14/2017 [facility] Serum or plasma albumin measurement (mass/volume) Serum or plasma albumin measurement (mass/volume) 3.5 3.5 - 5.0 06/14/2017 [facility] Serum or plasma albumin/globulin mass ratio Serum or plasma albumin/globulin mass ratio 1.2 0.8 - 2.0 06/14/2017 [facility] Serum or plasma alkaline phosphatase measurement (enzymatic activity/volume) Serum or plasma alkaline phosphatase measurement (enzymatic activity/volume) 87 40 - 150 06/14/2017 [facility] Serum or plasma protein measurement (mass/volume) Serum or plasma protein measurement (mass/volume) 6.4 6.5 - 8.1 06/14/2017 [facility] Serum or plasma total bilirubin measurement (mass/volume) Serum or plasma total bilirubin measurement (mass/volume) 0.7 0.2 - 1.2 06/14/2017 [facility] Aspartate Amino Transf (AST/SGOT) 13 5 - 34 06/14/2017 [facility] Serum or plasma uric acid measurement (mass/volume) Serum or plasma uric acid measurement (mass/volume) 6.8 3.5 - 7.2 06/13/2017 [facility] CHEM PANEL eGFR 52 mL/min/1.73m2 02/03/2017 Result [...] should be multiplied by the estimated BMI. [facility] CHEM PANEL Bili Total 0.7 mg/dL 0.2 - 1.3 02/03/2017 [facility] CHEM PANEL AST 17 unit/L 0 - 37 02/03/2017 [facility] CHEM PANEL Alk Phos 101 unit/L 39 - 136 02/03/2017 [facility] CHEM PANEL ALT 26 unit/L 0 - 65 02/03/2017 [facility] CHEM PANEL Albumin Lvl 3.7 g/dL 3.5 - 5.0 02/03/2017 [facility] CHEM PANEL A/G Ratio 1.0 0.7 - 1.6 02/03/2017 [facility] CHEM PANEL Globulin 3.7 g/dL 2.7 - 4.2 02/03/2017 [facility] CHEM PANEL Total Protein 7.4 g/dL 6.4 - 8.4 02/03/2017 [facility] CHEM PANEL AGAP 16.1 meq/L 10.0 - 20.0 02/03/2017 [facility] CHEM PANEL CO2 22 meq/L 24 - 32 02/03/2017 [facility] CHEM PANEL Calcium Lvl 8.1 mg/dL 8.5 - 10.5 02/03/2017 [facility] CHEM PANEL B/C Ratio 16 6 - 25 02/03/2017 [facility] CHEM PANEL Sodium Lvl 138 meq/L 135 - 145 02/03/2017 [facility] CHEM PANEL Chloride Lvl 104 meq/L 95 - 109 02/03/2017 [facility] CHEM PANEL Potassium Lvl 4.1 meq/L 3.5 - 5.1 02/03/2017 [facility] CHEM PANEL Creatinine Lvl 1.30 mg/dL 0.50 - 1.40 02/03/2017 [facility] CHEM PANEL BUN 21 mg/dL 7 - 22 02/03/2017 [facility] CHEM PANEL Glucose Lvl 98 mg/dL 70 - 99 02/03/2017 [facility] HEMATOLOGY Lymphocytes # 1.4 K/CMM 1.0 - 5.5 02/03/2017 [facility] HEMATOLOGY Eosinophils # 0.1 K/CMM 0.0 - 0.5 02/03/2017 [facility] HEMATOLOGY Monocytes # 0.7 K/CMM 0.0 - 0.8 02/03/2017 [facility] Segs-Bands # 5.5 K/CMM 1.5 - 8.1 02/03/2017 [facility] Basophils 0.4 % 0.0 - 1.0 02/03/2017 [facility] Eosinophils 1.6 % 0.0 - 4.0 02/03/2017 [facility] Monocytes 8.8 % 2.0 - 12.0 02/03/2017 [facility] Lymphocytes 18.1 % 20.0 - 40.0 02/03/2017 [facility] Segs 71.1 % 45.0 - 75.0 02/03/2017 [facility] MCV 95.0 fL 80.0 - 94.0 02/03/2017 [facility] MPV 7.7 fL 7.4 - 10.4 02/03/2017 [facility] Platelet 148 K/CMM 133 - 450 02/03/2017 [facility] RDW 14.0 % 11.5 - 14.5 02/03/2017 [facility] MCHC 34.7 g/dL 32.0 - 36.0 02/03/2017 [facility] MCH 32.9 pg 27.0 - 31.0 02/03/2017 [facility] RBC 4.53 M/CMM 4.70 - 6.10 02/03/2017 [facility] Hct 43.0 % 42.0 - 54.0 02/03/2017 [facility] WBC 7.7 K/CMM 3.7 - 10.4 02/03/2017 [facility] Hgb 14.9 g/dL 14.0 - 18.0 02/03/2017 [facility] CHEM PANEL Bili Total 0.4 mg/dL 0.2 - 1.3 02/02/2017 [facility] CHEM PANEL BUN 21 mg/dL 7 - 22 02/02/2017 [facility] CHEM PANEL Glucose Lvl 115 mg/dL 70 - 99 02/02/2017 [facility] CHEM PANEL eGFR 58 mL/min/1.73m2 02/02/2017 [...] should be multiplied by the estimated BMI. [facility] CHEM PANEL Total Protein 6.1 g/dL 6.4 - 8.4 02/02/2017 [facility] CHEM PANEL Calcium Lvl 7.8 mg/dL 8.5 - 10.5 02/02/2017 [facility] CHEM PANEL Albumin Lvl 3.5 g/dL 3.5 - 5.0 02/02/2017 [facility] CHEM PANEL AST 13 unit/L 0 - 37 02/02/2017 [facility] CHEM PANEL ALT 23 unit/L 0 - 65 02/02/2017 [facility] CHEM PANEL Alk Phos 93 unit/L 39 - 136 02/02/2017 [facility] CHEM PANEL Sodium Lvl 141 meq/L 135 - 145 02/02/2017 [facility] CHEM PANEL CO2 25 meq/L 24 - 32 02/02/2017 [facility] CHEM PANEL Creatinine Lvl 1.20 mg/dL 0.50 - 1.40 02/02/2017 [facility] CHEM PANEL Potassium Lvl 4.2 meq/L 3.5 - 5.1 02/02/2017 [facility] CHEM PANEL Chloride Lvl 107 meq/L 95 - 109 02/02/2017 [facility] CHEM PANEL AGAP 13.2 meq/L 10.0 - 20.0 02/02/2017 [facility] CHEM PANEL Globulin 2.6 g/dL 2.7 - 4.2 02/02/2017 [facility] CHEM PANEL B/C Ratio 18 6 - 25 02/02/2017 [facility] CHEM PANEL A/G Ratio 1.3 0.7 - 1.6 02/02/2017 [facility] HEMATOLOGY Segs-Bands # 4.3 K/CMM 1.5 - 8.1 02/02/2017 [facility] HEMATOLOGY Lymphocytes # 1.1 K/CMM 1.0 - 5.5 02/02/2017 [facility] HEMATOLOGY Eosinophils # 0.1 K/CMM 0.0 - 0.5 02/02/2017 [facility] HEMATOLOGY Basophils 0.7 % 0.0 - 1.0 02/02/2017 [facility] HEMATOLOGY Monocytes # 0.5 K/CMM 0.0 - 0.8 02/02/2017 [facility] HEMATOLOGY Segs 71.0 % 45.0 - 75.0 02/02/2017 [facility] HEMATOLOGY Monocytes 8.7 % 2.0 - 12.0 02/02/2017 [facility] HEMATOLOGY Eosinophils 1.9 % 0.0 - 4.0 02/02/2017 [facility] HEMATOLOGY Lymphocytes 17.7 % 20.0 - 40.0 02/02/2017 [facility] HEMATOLOGY WBC 6.1 K/CMM 3.7 - 10.4 02/02/2017 [facility] HEMATOLOGY RBC 4.18 M/CMM 4.70 - 6.10 02/02/2017 [facility] MCH 33.3 pg 27.0 - 31.0 02/02/2017 [facility] HEMATOLOGY MCV 96.7 fL 80.0 - 94.0 02/02/2017 [facility] HEMATOLOGY Hct 40.4 % 42.0 - 54.0 02/02/2017 [facility] HEMATOLOGY Hgb 13.9 g/dL 14.0 - 18.0 02/02/2017 [facility] HEMATOLOGY MPV 7.4 fL 7.4 - 10.4 02/02/2017 [facility] Platelet 140 K/CMM 133 - 450 02/02/2017 [facility] HEMATOLOGY RDW 13.8 % 11.5 - 14.5 02/02/2017 [facility] MCHC 34.5 g/dL 32.0 - 36.0 02/02/2017 [facility] CARDIAC ENZYMES Troponin-I null 0.00 - 0.40 02/01/2017 [facility] CARDIAC ENZYMES Troponin-I null 0.00 - 0.40 02/01/2017 [facility] CARDIAC ENZYMES Troponin-I null 0.00 - 0.40 02/01/2017 [facility] CARDIAC ENZYMES CK MB Index 2.0 0.0 - 2.5 02/01/2017 [facility] CARDIAC ENZYMES BNP 128 pg/mL <=100 pg/mL 02/01/2017 [facility] CARDIAC ENZYMES CK MB 1.2 ng/mL 0.5 - 3.6 02/01/2017 [facility] CARDIAC ENZYMES Total CK 61 unit/L 12 - 191 02/01/2017 [facility] CHEM PANEL Total Protein 7.1 g/dL 6.4 - 8.4 02/01/2017 [facility] CHEM PANEL Calcium Lvl 8.5 mg/dL 8.5 - 10.5 02/01/2017 [facility] CHEM PANEL ALT 21 unit/L 0 - 65 02/01/2017 [facility] CHEM PANEL Bili Total 0.5 mg/dL 0.2 - 1.3 02/01/2017 [facility] CHEM PANEL B/C Ratio 18 6 - 25 02/01/2017 [facility] CHEM PANEL Albumin Lvl 3.7 g/dL 3.5 - 5.0 02/01/2017 [facility] CHEM PANEL Alk Phos 111 unit/L 39 - 136 02/01/2017 [facility] CHEM PANEL AST 15 unit/L 0 - 37 02/01/2017 [facility] CHEM PANEL AGAP 14.9 meq/L 10.0 - 20.0 02/01/2017 [facility] CHEM PANEL Globulin 3.4 g/dL 2.7 - 4.2 02/01/2017 [facility] CHEM PANEL eGFR 44 mL/min/1.73m2 02/01/2017 [...] should be multiplied by the estimated BMI. [facility] CHEM PANEL A/G Ratio 1.1 0.7 - 1.6 02/01/2017 [facility] CHEM PANEL Potassium Lvl 3.9 meq/L 3.5 - 5.1 02/01/2017 [facility] CHEM PANEL CO2 26 meq/L 24 - 32 02/01/2017 [facility] CHEM PANEL Chloride Lvl 104 meq/L 95 - 109 02/01/2017 [facility] CHEM PANEL BUN 27 mg/dL 7 - 22 02/01/2017 [facility] CHEM PANEL Glucose Lvl 99 mg/dL 70 - 99 02/01/2017 [facility] CHEM PANEL Creatinine Lvl 1.50 mg/dL 0.50 - 1.40 02/01/2017 [facility] CHEM PANEL Sodium Lvl 141 meq/L 135 - 145 02/01/2017 [facility] Eosinophils # 0.1 K/CMM 0.0 - 0.5 02/01/2017 [facility] Monocytes # 0.7 K/CMM 0.0 - 0.8 02/01/2017 [facility] Segs-Bands # 5.7 K/CMM 1.5 - 8.1 02/01/2017 [facility] Lymphocytes # 1.5 K/CMM 1.0 - 5.5 02/01/2017 [facility] Basophils 0.4 % 0.0 - 1.0 02/01/2017 [facility] Monocytes 9.1 % 2.0 - 12.0 02/01/2017 [facility] Eosinophils 1.8 % 0.0 - 4.0 02/01/2017 [facility] Lymphocytes 18.7 % 20.0 - 40.0 02/01/2017 [facility] Segs 70.0 % 45.0 - 75.0 02/01/2017 [facility] WBC 8.2 K/CMM 3.7 - 10.4 02/01/2017 [facility] Platelet 159 K/CMM 133 - 450 02/01/2017 [facility] RDW 14.0 % 11.5 - 14.5 02/01/2017 [facility] MPV 8.0 fL 7.4 - 10.4 02/01/2017 [facility] MCHC 35.2 g/dL 32.0 - 36.0 02/01/2017 [facility] MCH 34.0 pg 27.0 - 31.0 02/01/2017 [facility] MCV 96.4 fL 80.0 - 94.0 02/01/2017 [facility] Hgb 13.9 g/dL 14.0 - 18.0 02/01/2017 [facility] RBC 4.08 M/CMM 4.70 - 6.10 02/01/2017 [facility] Hct 39.3 % 42.0 - 54.0 02/01/2017 [facility] Chest 1view DX Chest 1view DX [...] Monica Wesley MD 02/01/17 01:47 FINAL REPORT [facility] HEMATOLOGY Hgb 13.4 g/dL 14.0 - 18.0 09/23/2016 [facility] CHEM PANEL Magnesium Lvl 2.2 mg/dL 1.8 - 2.4 09/23/2016 [facility] ELECTROLYTES CO2 25 meq/L 24 - 32 09/23/2016 [facility] ELECTROLYTES Potassium Lvl 4.2 meq/L 3.5 - 5.1 09/23/2016 [facility] ELECTROLYTES Chloride Lvl 108 meq/L 95 - 109 09/23/2016 [facility] ELECTROLYTES Creatinine Lvl 1.10 mg/dL 0.50 - 1.40 09/23/2016 [facility] ELECTROLYTES Sodium Lvl 142 meq/L 135 - 145 09/23/2016 [facility] ELECTROLYTES BUN 19 mg/dL 7 - 22 09/23/2016 [facility] ELECTROLYTES Glucose Lvl 94 mg/dL 70 - 99 09/23/2016 [facility] ELECTROLYTES AGAP 13.2 meq/L 10.0 - 20.0 09/23/2016 [facility] ELECTROLYTES Calcium Lvl 7.5 mg/dL 8.5 - 10.5 09/23/2016 [facility] ELECTROLYTES eGFR 64 mL/min/1.73m2 09/23/2016 Result [...] should be multiplied by the estimated BMI. [facility] CHEM PANEL Magnesium Lvl 2.3 mg/dL 1.8 - 2.4 09/22/2016 [facility] ELECTROLYTES AGAP 14.0 meq/L 10.0 - 20.0 09/22/2016 [facility] ELECTROLYTES Calcium Lvl 8.0 mg/dL 8.5 - 10.5 09/22/2016 [facility] ELECTROLYTES CO2 24 meq/L 24 - 32 09/22/2016 [facility] ELECTROLYTES Chloride Lvl 107 meq/L 95 - 109 09/22/2016 [facility] ELECTROLYTES eGFR 52 mL/min/1.73m2 09/22/2016 Result [...] should be multiplied by the estimated BMI. [facility] ELECTROLYTES Creatinine Lvl 1.30 mg/dL 0.50 - 1.40 09/22/2016 [facility] ELECTROLYTES BUN 18 mg/dL 7 - 22 09/22/2016 [facility] ELECTROLYTES Glucose Lvl 94 mg/dL 70 - 99 09/22/2016 [facility] ELECTROLYTES Potassium Lvl 4.0 meq/L 3.5 - 5.1 09/22/2016 [facility] ELECTROLYTES Sodium Lvl 141 meq/L 135 - 145 09/22/2016 [facility] Cardiac SPECT multi studies NM Cardiac [...] was abnormal with regional wall motion abnormalities. [id number] 09/22/2016 - - Read by: Latrice Chanel MD Dictated Date/time: 03/02/17 09:35 Electronically Signed by: Latrice Chanel MD 03/02/17 09:42 FINAL REPORT [facility] CARDIAC ENZYMES Troponin-I null 0.00 - 0.40 09/21/2016 [facility] CARDIAC ENZYMES Total CK 55 unit/L - 09/21/2016 [facility] CARDIAC ENZYMES Troponin-I null 0.00 - 0.40 09/21/2016 [facility] CARDIAC ENZYMES Total CK 45 unit/L 12 - 191 09/21/2016 [facility] URINE AND STOOL UA Color Yellow *NA* (09/21/16 8:33 AM) Yellow 09/21/2016 [facility] URINE AND STOOL UA Turbidity Clear (09/21/16 8:33 AM) Clear 09/21/2016 [facility] URINE AND STOOL UA Spec Grav 1.027 <=1.030 09/21/2016 [facility] URINE AND STOOL UA pH 5.0 5.0 - 8.0 09/21/2016 [facility] URINE AND STOOL UA Bili Negative *NA* (09/21/16 8:33 AM) Negative 09/21/2016 [facility] URINE AND STOOL UA Leuk Est Negative (09/21/16 8:33 AM) Negative 09/21/2016 [facility] URINE AND STOOL UA Blood Negative (09/21/16 8:33 AM) Negative 09/21/2016 [facility] URINE AND STOOL UA Nitrite Negative (09/21/16 8:33 AM) Negative 09/21/2016 [facility] URINE AND STOOL UA Sq Epi Occasional /LPF Few /LPF 09/21/2016 [facility] URINE AND STOOL UA Mucus Few /LPF None Seen /LPF 09/21/2016 [facility] URINE AND STOOL UA WBC 1 /HPF 0 - 5 09/21/2016 [facility] URINE AND STOOL UA Ketones Negative mg/dL Negative mg/dL 09/21/2016 [facility] URINE AND STOOL UA Protein Negative mg/dL Negative mg/dL 09/21/2016 [facility] URINE AND STOOL UA Glucose Negative mg/dL Negative mg/dL 09/21/2016 [facility] URINE AND STOOL UA Urobilinogen <=1.0 mg/dL 0.1 - 1.0 09/21/2016 [facility] CARDIAC ENZYMES CK MB Index 3.5 0.0 - 2.5 09/21/2016 [facility] CARDIAC ENZYMES BNP 78 pg/mL <=100 pg/mL 09/21/2016 [facility] CARDIAC ENZYMES Total CK 46 unit/L 12 - 191 09/21/2016 [facility] CARDIAC ENZYMES CK MB 1.6 ng/mL 0.5 - 3.6 09/21/2016 [facility] CARDIAC ENZYMES Troponin-I null 0.00 - 0.40 09/21/2016 [facility] CHEM PANEL Magnesium Lvl 2.3 mg/dL 1.8 - 2.4 09/21/2016 [facility] CHEM PANEL eGFR 52 mL/min/1.73m2 09/21/2016 [...] should be multiplied by the estimated BMI. [facility] CHEM PANEL Bili Total 0.4 mg/dL 0.2 - 1.3 09/21/2016 [facility] CHEM PANEL B/C Ratio 19 6 - 25 09/21/2016 [facility] CHEM PANEL Globulin 3.2 g/dL 2.7 - 4.2 09/21/2016 [facility] CHEM PANEL AGAP 14.8 meq/L 10.0 - 20.0 09/21/2016 [facility] CHEM PANEL ALT 19 unit/L 0 - 65 09/21/2016 [facility] CHEM PANEL Alk Phos 99 unit/L 39 - 136 09/21/2016 [facility] CHEM PANEL AST 8 unit/L 0 - 37 09/21/2016 [facility] CHEM PANEL A/G Ratio 1.1 0.7 - 1.6 09/21/2016 [facility] CHEM PANEL Potassium Lvl 3.8 meq/L 3.5 - 5.1 09/21/2016 [facility] CHEM PANEL Sodium Lvl 141 meq/L 135 - 145 09/21/2016 [facility] CHEM PANEL Calcium Lvl 7.9 mg/dL 8.5 - 10.5 09/21/2016 [facility] CHEM PANEL CO2 25 meq/L 24 - 32 09/21/2016 [facility] CHEM PANEL Albumin Lvl 3.4 g/dL 3.5 - 5.0 09/21/2016 [facility] CHEM PANEL Total Protein 6.6 g/dL 6.4 - 8.4 09/21/2016 [facility] CHEM PANEL Chloride Lvl 105 meq/L 95 - 109 09/21/2016 [facility] CHEM PANEL Glucose Lvl 110 mg/dL 70 - 99 09/21/2016 [facility] CHEM PANEL Creatinine Lvl 1.30 mg/dL 0.50 - 1.40 09/21/2016 [facility] CHEM PANEL BUN 25 mg/dL 7 - 22 09/21/2016 [facility] HEMATOLOGY Eosinophils # 0.2 K/CMM 0.0 - 0.5 09/21/2016 [facility] HEMATOLOGY Eosinophils 2.6 % 0.0 - 4.0 09/21/2016 [facility] HEMATOLOGY Basophils 0.3 % 0.0 - 1.0 09/21/2016 [facility] HEMATOLOGY Monocytes # 0.5 K/CMM 0.0 - 0.8 09/21/2016 [facility] HEMATOLOGY Lymphocytes # 1.2 K/CMM 1.0 - 5.5 09/21/2016 [facility] Segs-Bands # 4.6 K/CMM 1.5 - 8.1 09/21/2016 [facility] Segs 70.9 % 45.0 - 75.0 09/21/2016 [facility] Lymphocytes 18.8 % 20.0 - 40.0 09/21/2016 [facility] Monocytes 7.4 % 2.0 - 12.0 09/21/2016 [facility] [facility] P[facility] 31.8 s 22.9 - 35.8 09/21/2016 [facility] INR 1.01 0.85 - 1.17 09/21/2016 [facility] PT 13.5 s 12.0 - 14.7 09/21/2016 [facility] Hgb 13.9 g/dL 14.0 - 18.0 09/21/2016 [facility] MCV 96.1 fL 80.0 - 94.0 09/21/2016 [facility] Hct 40.2 % 42.0 - 54.0 09/21/2016 [facility] MCH 33.3 pg 27.0 - 31.0 09/21/2016 [facility] MCHC 34.7 g/dL 32.0 - 36.0 09/21/2016 [facility] RBC 4.18 M/CMM 4.70 - 6.10 09/21/2016 [facility] Platelet 145 K/CMM 133 - 450 09/21/2016 [facility] RDW 13.7 % 11.5 - 14.5 09/21/2016 [facility] MPV 8.0 fL 7.4 - 10.4 09/21/2016 [facility] WBC 6.5 K/CMM 3.7 - 10.4 09/21/2016 [facility] D-Dimer 0.35 ug/mL FEU 09/21/2016 [facility] Chest 1view DX Chest 1view DX [...] is seen. IMPRESSION: No acute abnormality. SL: [id number] 09/21/2016 - - Read by: Ryan Andino MD Dictated Date/time: 09/21/16 08:36 Electronically Signed by: Ryan Andino MD 09/21/16 08:37 FINAL REPORT [facility] ELECTROLYTES Potassium Lvl 3.9 meq/L 3.5 - 5.1 07/04/2016 [facility] ELECTROLYTES Chloride Lvl 105 meq/L 95 - 109 07/04/2016 [facility] ELECTROLYTES Calcium Lvl 7.8 mg/dL 8.5 - 10.5 07/04/2016 [facility] ELECTROLYTES CO2 27 meq/L 24 - 32 07/04/2016 [facility] ELECTROLYTES eGFR 63 mL/min/1.73m2 07/04/2016 Result [...] should be multiplied by the estimated BMI. [facility] ELECTROLYTES Creatinine Lvl 1.11 mg/dL 0.50 - 1.40 07/04/2016 [facility] ELECTROLYTES BUN 23 mg/dL 7 - 22 07/04/2016 [facility] ELECTROLYTES Sodium Lvl 141 meq/L 135 - 145 07/04/2016 [facility] ELECTROLYTES Glucose Lvl 97 mg/dL 70 - 99 07/04/2016 [facility] ELECTROLYTES AGAP 12.9 meq/L 10.0 - 20.0 07/04/2016 [facility] HEMATOLOGY Monocytes 6.8 % 2.0 - 12.0 07/04/2016 [facility] HEMATOLOGY Lymphocytes 10.3 % 20.0 - 40.0 07/04/2016 [facility] HEMATOLOGY Segs 81.2 % 45.0 - 75.0 07/04/2016 [facility] HEMATOLOGY Segs-Bands # 6.0 K/CMM 1.5 - 8.1 07/04/2016 [facility] HEMATOLOGY Basophils 0.2 % 0.0 - 1.0 07/04/2016 [facility] Eosinophils 1.5 % 0.0 - 4.0 07/04/2016 [facility] Monocytes # 0.5 K/CMM 0.0 - 0.8 07/04/2016 [facility] Lymphocytes # 0.8 K/CMM 1.0 - 5.5 07/04/2016 [facility] Eosinophils # 0.1 K/CMM 0.0 - 0.5 07/04/2016 [facility] Hct 41.8 % 42.0 - 54.0 07/04/2016 [facility] Hgb 14.4 g/dL 14.0 - 18.0 07/04/2016 [facility] RBC 4.39 M/CMM 4.70 - 6.10 07/04/2016 [facility] WBC 7.3 K/CMM 3.7 - 10.4 07/04/2016 [facility] MPV 7.8 fL 7.4 - 10.4 07/04/2016 [facility] Platelet 114 K/CMM 133 - 450 07/04/2016 [facility] RDW 13.7 % 11.5 - 14.5 07/04/2016 [facility] MCHC 34.4 g/dL 32.0 - 36.0 07/04/2016 [facility] MCH 32.8 pg 27.0 - 31.0 07/04/2016 [facility] MCV 95.2 fL 80.0 - 94.0 07/04/2016 [facility] BLOOD BANK RESULTS ABO/Rh O POS 07/03/2016 [facility] BLOOD BANK RESULTS Antibody Scrn Negative (07/03/16 10:28 AM) 07/03/2016 [facility] CHEM PANEL Creatinine Lvl 1.34 mg/dL 0.50 - 1.40 07/03/2016 [facility] CHEM PANEL eGFR 50 mL/min/1.73m2 07/03/2016 [...] should be multiplied by the estimated BMI. [facility] HEMATOLOGY Platelet 127 K/CMM 133 - 450 07/03/2016 [facility] HEMATOLOGY PTT 31.1 s 22.9 - 35.8 07/03/2016 [facility] CARDIAC ENZYMES Total CK 44 unit/L - 07/03/2016 [facility] CARDIAC ENZYMES Troponin-I null 0.00 - 0.40 07/03/2016 [facility] CARDIAC ENZYMES Total CK 42 unit/L - 07/03/2016 [facility] CARDIAC ENZYMES Troponin-I null 0.00 - 0.40 07/03/2016 [facility] CARDIAC ENZYMES Troponin-I null 0.00 - 0.40 07/03/2016 [facility] CARDIAC ENZYMES BNP 136 pg/mL <=100 pg/mL 07/03/2016 [facility] CARDIAC ENZYMES Total CK 48 unit/L - 07/03/2016 [facility] CHEM PANEL eGFR 47 mL/min/1.73m2 07/03/2016 [...] should be multiplied by the estimated BMI. [facility] CHEM PANEL BUN 25 mg/dL 7 - 22 07/03/2016 [facility] CHEM PANEL Glucose Lvl 126 mg/dL 70 - 99 07/03/2016 [facility] CHEM PANEL Chloride Lvl 104 meq/L 95 - 109 07/03/2016 [facility] CHEM PANEL Potassium Lvl 3.8 meq/L 3.5 - 5.1 07/03/2016 [facility] CHEM PANEL Sodium Lvl 139 meq/L [...] B/C Ratio 17 6 - 25 07/03/2016 [facility] CHEM PANEL AGAP 10.8 meq/L 10.0 - 20.0 07/03/2016 [facility] HEMATOLOGY Segs 76.2 % 45.0 - 75.0 07/03/2016 [facility] HEMATOLOGY Lymphocytes 13.5 % 20.0 - 40.0 07/03/2016 [facility] HEMATOLOGY Eosinophils 1.3 % 0.0 - 4.0 07/03/2016 [facility] HEMATOLOGY Monocytes 6.8 % 2.0 - 12.0 07/03/2016 [facility] HEMATOLOGY Basophils 2.2 % 0.0 - 1.0 07/03/2016 [facility] HEMATOLOGY Segs-Bands # 6.6 K/CMM 1.5 - 8.1 07/03/2016 [facility] HEMATOLOGY Lymphocytes # 1.2 K/CMM 1.0 - 5.5 07/03/2016 [facility] HEMATOLOGY Monocytes # 0.6 K/CMM 0.0 - 0.8 07/03/2016 [facility] HEMATOLOGY Eosinophils # 0.1 K/CMM 0.0 - 0.5 07/03/2016 [facility] HEMATOLOGY Basophils # 0.2 K/CMM 0.0 - 0.2 07/03/2016 [facility] INR 1.00 0.85 - 1.17 07/03/2016 [facility] PTT 29.8 s 22.9 - 35.8 07/03/2016 [facility] PT 13.5 s 12.0 - 14.7 07/03/2016 [facility] MPV 7.5 fL 7.4 - 10.4 07/03/2016 [facility] Platelet 133 K/CMM 133 - 450 07/03/2016 [facility] Hct 44.4 % 42.0 - 54.0 07/03/2016 [facility] RBC 4.65 M/CMM 4.70 - 6.10 07/03/2016 [facility] Hgb 15.3 g/dL 14.0 - 18.0 07/03/2016 [facility] WBC 8.6 K/CMM 3.7 - 10.4 07/03/2016 [facility] MCHC 34.4 g/dL 32.0 - 36.0 07/03/2016 [facility] RDW 14.3 % 11.5 - 14.5 07/03/2016 [facility] MCH 32.8 pg 27.0 - 31.0 07/03/2016 [facility] MCV 95.4 fL 80.0 - 94.0 07/03/2016 [facility] Chest 1view DX Chest 1view DX [...] Thomas Manning MD 07/03/16 00:58 FINAL REPORT [facility] wo contrast CT Knee wo contrast CT [...] Jerel Bender MD 02/20/15 15:27 FINAL REPORT [facility] ELECTROLYTES AGAP 10.8 meq/L 10.0 - 20.0 09/25/2014 [facility] ELECTROLYTES Calcium Lvl 8.5 mg/dL 8.5 - 10.5 09/25/2014 [facility] ELECTROLYTES CO2 28 meq/L 24 - 32 09/25/2014 [facility] ELECTROLYTES Chloride Lvl 108 meq/L 95 - 109 09/25/2014 [facility] ELECTROLYTES Potassium Lvl 4.8 meq/L 3.5 - 5.1 09/25/2014 [facility] ELECTROLYTES Sodium Lvl 142 meq/L 135 - 145 09/25/2014 [facility] ELECTROLYTES Creatinine Lvl 1.2 mg/dL 0.5 - 1.4 09/25/2014 [facility] ELECTROLYTES BUN 22 mg/dL 7 - 22 09/25/2014 [facility] ELECTROLYTES Glucose Lvl 123 mg/dL 70 - 99 09/25/2014 2Interpretive Data: Adult reference range values reflect the clinical guidelines of the [employer] [employer]. [facility] ELECTROLYTES eGFR 58 mL/min/1.73m2 09/25/2014 1Result [...] should be multiplied by the estimated BMI. [facility] Eosinophils # 0.2 K/CMM 0.0 - 0.5 09/25/2014 [facility] Lymphocytes # 0.9 K/CMM 1.0 - 5.5 09/25/2014 [facility] Segs-Bands # 4.5 K/CMM 1.5 - 8.1 09/25/2014 [facility] Monocytes # 0.4 K/CMM 0.0 - 0.8 09/25/2014 [facility] Eosinophils 3.3 % 0.0 - 4.0 09/25/2014 [facility] Monocytes 7.2 % 2.0 - 12.0 09/25/2014 [facility] Lymphocytes 14.9 % 20.0 - 40.0 09/25/2014 [facility] Basophils 0.4 % 0.0 - 1.0 09/25/2014 [facility] Macrocyte 1+ *ABN* (09/25/14 10:55 AM) None Seen 09/25/2014 [facility] Segs 74.2 % 45.0 - 75.0 09/25/2014 [facility] PTT 30.2 s 22.9 - 35.8 09/25/2014 4Interpretive Data: Heparin Therapeutic Range: 57 - 92 Seconds [facility] PT 12.8 s 12.0 - 14.7 09/25/2014 [facility] INR 0.96 0.85 - 1.17 09/25/2014 3Interpretive Data: RECOMMENDED RANGES FOR PROTIME INR: 2.0-3.0 for most medical and surgical thromboembolic states. 2.5-3.5 for artificial heart valves and recurrent embolism. INR SHOULD BE USED ONLY FOR PATIENTS ON STABLE ANTICOAGULANT THERAPY. [facility] MPV 8.0 fL 7.4 - 10.4 09/25/2014 [facility] WBC 6.1 K/CMM 3.7 - 10.4 09/25/2014 [facility] Hgb 13.9 g/dL 14.0 - 18.0 09/25/2014 [facility] RBC 4.03 M/CMM 4.70 - 6.10 09/25/2014 [facility] Hct 40.0 % 42.0 - 54.0 09/25/2014 [facility] HEMATOLOGY MCV 99.2 fL 80.0 - 94.0 09/25/2014 [facility] HEMATOLOGY MCHC 34.9 g/dL 32.0 - 36.0 09/25/2014 [facility] HEMATOLOGY MCH 34.6 pg 27.0 - 31.0 09/25/2014 [facility] HEMATOLOGY RDW 13.4 % 11.5 - 14.5 09/25/2014 [facility] HEMATOLOGY Platelet 158 K/CMM 133 - 450 09/25/2014 [facility] LIPIDS CHD Risk 4.54 4.00 - 7.30 09/25/2014 [facility] LIPIDS VLDL 51 09/25/2014 [facility] LIPIDS LDL (Calculated) 94 mg/dL <=99 mg/dL 09/25/2014 [facility] LIPIDS HDL 41 mg/dL >=61 mg/dL 09/25/2014 [facility] LIPIDS Chol 186 mg/dL <=199 mg/dL 09/25/2014 [facility] LIPIDS Trig 256 mg/dL <=149 mg/dL 09/25/2014 [facility] Vital Signs Vital Sign Value Date Comments Source Temperature Oral (F) 98 F 10/01/2017 [facility] Heart Rate 60 10/01/2017 [facility] Respitory Rate 16 10/01/2017 [facility] Systolic (mm Hg) 162 10/01/2017 [facility] Diastolic (mm Hg) 68 10/01/2017 [facility] Temperature Oral (F) 97.9 F 10/01/2017 [facility] Systolic (mm Hg) 168 10/01/2017 [facility] Diastolic (mm Hg) 70 10/01/2017 [facility] Heart Rate 64 10/01/2017 [facility] Respitory Rate 16 10/01/2017 [facility] Systolic (mm Hg) 175 10/01/2017 [facility] Diastolic (mm Hg) 75 10/01/2017 [facility] Respitory Rate 16 10/01/2017 [facility] Heart Rate 69 10/01/2017 [facility] Temperature Oral (F) 98.9 F 10/01/2017 [facility] BMI Calculated 33.45 09/17/2017 [facility] Weight 118.182 09/17/2017 [facility] Height 187.96 cm 09/17/2017 [facility] Systolic (mm Hg) 115 02/03/2017 [facility] Diastolic (mm Hg) 71 02/03/2017 [facility] Heart Rate 71 02/03/2017 [facility] Temperature Oral (F) 98.2 F 02/03/2017 [...] 63 07/04/2016 [facility] Respitory Rate 20 07/04/2016 [facility] Systolic (mm Hg) 124 07/04/2016 [facility] Diastolic (mm Hg) 71 07/04/2016 [facility] Temperature Oral (F) 97.5 F 07/04/2016 [facility] Temperature Oral (F) 97.9 F 07/04/2016 [facility] Height 187.96 cm 07/03/2016 [facility] BMI Calculated 33.22 07/03/2016 [facility] Weight 117.358 07/03/2016 [facility] Heart Rate 65 07/03/2016 [facility] Weight 118.182 07/03/2016 [facility] Height 157.48 cm 07/03/2016 [facility] BMI Calculated 47.65 07/03/2016 [facility] Systolic (mm Hg) 179 02/12/2015 [facility] Diastolic (mm Hg) 84 02/12/2015 [facility] Heart Rate 65 02/12/2015 [facility] Respitory Rate 18 02/12/2015 [facility] Heart Rate 65 02/12/2015 [facility] Respitory Rate 18 02/12/2015 [facility] Temperature Oral (F) 98.2 F 02/12/2015 [facility] Systolic (mm Hg) 187 02/12/2015 [facility] Diastolic (mm Hg) 83 02/12/2015 [facility] Height 187.96 cm 02/12/2015 [facility] Respitory Rate 18 02/12/2015 [facility] Temperature Oral (F) 97.7 F 02/12/2015 [facility] Weight 77.273 02/12/2015 [facility] BMI Calculated 21.87 02/12/2015 [facility] Heart Rate 61 02/12/2015 [facility] Systolic (mm Hg) 174 02/12/2015 [facility] Diastolic (mm Hg) 93 02/12/2015 [facility] Diastolic (mm Hg) 80 09/25/2014 [facility] Respitory Rate 20 09/25/2014 [facility] Heart Rate 64 09/25/2014 [facility] Systolic (mm Hg) 184 09/25/2014 [facility] Temperature Oral (F) 97.7 F 09/25/2014 [facility] BMI Calculated 35.38 09/25/2014 [facility] Weight 125 09/25/2014 [facility] Height 187.96 cm 09/25/2014 [facility] Encounters Location Location Details Encounter Type Encounter Number Reason For Visit Attending Provider ADM Date DC Date Status Source [facility] Bedded Outpatient [id number] Royal Mccann 09/26/2014 09/27/2014 [facility] [id number] Denise Farazujusta 02/12/2015 02/12/2015 [facility] Outpatient [id number] Celso Schauder 02/20/2015 02/21/2015 [facility] [place] [facility] Patients [id number] Celso Schauder 02/26/2015 03/28/2015 [facility] Inpatient [id number] Royal Mccann 07/03/2016 07/04/2016 [facility] Observation [id number] Royal Thomasalla 09/21/2016 09/23/2016 [facility] Inpatient [id number] Nica Delgado 02/01/2017 02/03/2017 [facility] Discharged Inpatient [id number] FILIBERTO MADRID MD 06/13/2017 06/16/2017 [facility] Outpatient [id number] Royal Serratoa 09/17/2017 09/18/2017 [facility] Inpatient [id number] Celso Schauder 09/28/2017 10/01/2017 [facility] [place] [facility] Patients [id number] Celso Schauder 11/10/2017 12/10/2017 [facility] [place] Departed Emergency Room [id number] JULIANO MANNING MD 03/27/2018 03/27/2018 [facility] Procedures Procedure Code Date Perfomer Comments Source INTRODUCTION OF ANTI-INFLAMMATORY INTO JOINTS, PERC APPROACH [id number] 06/15/2017 JULIUS [facility] Ablation [id number] 11/09/2011 [facility] [place] Ablation [id number] 11/09/2011 [facility] 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<sup>1</sup> [id number] 11/09/2001 [facility] [place] 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<sup>1</sup> [id number] 11/09/2001 [facility] Catheterization of left heart [id number] [facility] Permanent cardiac pacemaker [id number]<sup>2</sup> [id number] multiple stents [facility] Catheterization of left heart [id number] [facility] Permanent cardiac pacemaker procedure [id number] [facility] Stent placement<sup>2</sup> [id number] multiple stents [facility] Appendectomy [id number] [facility] Tonsillectomy [id number] [facility] Appendectomy [id number] [facility] Tonsillectomy [id number] [facility]
--- OUTSIDE RECORDS SUMMARY | 2019-01-02 01:52 | XMS REPORT ---
Author [facility] Address Unknown Phone Unavailable Care Team Providers Care Metal Solderer Name Role Phone Leia RUIZ Unavailable Unavailable Problems This patient has no known problems. Allergies, Adverse Reactions, Alerts This patient has no known allergies or adverse reactions. Medications This patient has no known medications. Results Test Description Test Time Test Comments Text Results Atomic Results Result Comments CT ABDOMEN/PELVIS WO 2018-12-31 19:06:00 [facility] [address] [address] Patient Name: LAURA HORNE MR #: [id number] : 1940 Age/Sex: 78/M Req #: [id number] Adm Physician: Ordered by: DREW TAYLOR NP Report #: [id number] Location: ER Room/Bed: Procedure: [id number] CT/CT ABDOMEN/PELVIS WO Exam Date: Exam Time: REPORT STATUS: Signed EXAM: CT Abdomen and Pelvis WITHOUT contrast INDICATION: STONE PROTOCOL. Back pain. Possible kidney stone. COMPARISON: None TECHNIQUE: Abdomen and pelvis were scanned utilizing a multidetector helical scanner from the lung base to the pubic symphysis without administration of IV contrast. Absence of intravenous contrast decreases sensitivity for detection of focal lesions and vascular pathology. Coronal and sagittal reformations were obtained. Routine protocol was performed. IV CONTRAST: None ORAL CONTRAST: Water COMPLICATIONS: None RADIATION DOSE: Total DLP: 917.39 mGy*cm Estimated effective dose: (DLP x 0.015 x size factor) mSv CTDIvol has been reviewed. It is below the limits set by the Radiation Protocol Committee (RPC). FINDINGS: LINES and TUBES: Partially visualized pacemaker leads. LOWER THORAX: Bibasilar atelectasis and mild scarring. Moderate cardiomegaly. Coronary artery calcifications. Small sliding hiatal hernia. HEPATOBILIARY: No focal hepatic lesions. No biliary ductal dilation. GALLBLADDER: No radio-opaque stones or sludge. No wall thickening. SPLEEN: Splenomegaly measuring 14.5 cm in AP dimension. PANCREAS: No focal masses or ductal dilatation. ADRENALS: No adrenal nodules KIDNEYS/URETERS: No hydronephrosis. No cystic or solid mass lesions. 0.4 cm and 0.3 cm stone in the lower pole of the left kidney. 0.4 cm stone in the distal left ureter, roughly 1 cm away from the UVJ junction. Mild inflammatory changes extending from the left renal pelvis into the bladder surrounding the left ureter and left retroperitoneum. Mild left hydronephrosis. GI TRACT: No abnormal distention, wall thickening, or evidence of bowel obstruction. Appendix is not clearly identified. There is however no fat stranding or adenopathy in the right lower quadrant to suggest appendicitis. PELVIC ORGANS/BLADDER: Prostate measures 5.8 cm in transverse dimension. Bladder is compressed. LYMPH NODES: No lymphadenopathy. VESSELS: There is severe atherosclerotic disease in the aorta and major arterial branches. PERITONEUM / RETROPERITONEUM: No free air or fluid. BONES: There are degenerative changes in the lumbar spine. Schmorl's node defect in the superior endplate of L3 vertebral body. Moderate disc space narrowing with posterior disc osteophyte L5-S1. SOFT TISSUES: 3.1 x 4.1 cm fat-containing umbilical hernia with a neck of 2.6 cm. IMPRESSION: 1. 0.4 cm distal left ureteral stone causing mild left hydroureter and left hydronephrosis with inflammatory change around the left kidney and left ureter. Correlate with urinary analysis for possible superimposed infection. 2. 2 additional small stones in lower pole of the left kidney. 3. Prostate enlargement. Signed by: Dr. Neto France M.D. on 12/31/2018 7:21 PM Dictated By: NETO FRANCE MD 20 Transcribed By: FLORES on 12/31/181920 COPY TO: DREW TAYLOR NP
[2019-01-02] MEDS ORDERED: MORPHINE SULFATE INJ 4 MG/ML INJ 1ML IV STA (02:07)
[2019-01-02] MEDS ORDERED: SODIUM CHLORIDE 0.9% 500ML 500 ML IV STA (02:07)
[2019-01-02] MEDS ORDERED: HYDRALAZINE HCL 20 MG/ML VIAL IV STA (02:07)
[2019-01-02] MEDS ORDERED: ONDANSETRON HCL INJ 2MG/ML 2ML 2 MG/ML VIAL IV ONE (02:15)
[2019-01-02] MEDS ORDERED: ACETAMINOPHEN 325 MG TAB PO ONE (02:15)
[2019-01-02] MEDS ORDERED: FAMOTIDINE 20 MG/2 ML VIAL IV ONE (02:15)
[2019-01-02] MEDS ORDERED: CEFTRIAXONE SOD 1 GM VIAL IV ONE (02:15)
[2019-01-02 02:21] LABS: BASOPHILS % 0.5 % (0.0-1.0); EOSINOPHILS # (AUTO) 0.2 (0.0-0.4); EOSINOPHILS % 2.3 % (0.0-6.0); HEMATOCRIT 39.5 % (38.2-49.6); HEMOGLOBIN 13.3 g/dL (14.0-18.0); LYMPHOCYTES # (AUTO) 0.7 (1.0-3.2); MEAN CORPUSCULAR HEMOGLOBIN 32.6 pg (28-32); MEAN CORPUSCULAR HGB CONC 33.7 g/dL (31-35); MEAN CORPUSCULAR VOLUME 96.8 fL (81-99); MONOCYTES # (AUTO) 0.5 (0.2-0.8); MONOCYTES % 6.3 % (4.4-11.3); NEUTROPHILS # (AUTO) 6.8 (2.1-6.9); NEUTROPHILS % 82.5 % (38.7-80.0); PLATELET COUNT 148 x10e3/uL (140-360); RED BLOOD COUNT 4.08 x10e6/uL (4.3-5.7); RED CELL DISTRIBUTION WIDTH 13.4 % (11.7-14.4)
--- NOTE | 2019-01-02 02:30 | NUR ---
URINAL AT BEDSIDE, INST ON NEED FOR URINE
[2019-01-02 02:32] LABS: ANION GAP 13.4 mmol/L (8-16); CALCIUM 8.9 mg/dL (8.4-10.2); CREATININE, SERUM 1.69 mg/dL (0.72-1.25); POTASSIUM 4.4 mmol/L (3.5-5.1)
--- NOTE | 2019-01-02 03:34 | Diagnostic Imaging Report ---
EXAM: Abdomen 2 images INDICATION: ^Kidney stone ^[id number] ^[id number] COMPARISON: CT dated 12/31/2018 FINDINGS: Limited by body habitus. Nonobstructive bowel gas pattern. No signs of pneumoperitoneum. Linear density overlying left renal shadow, could represent a calculus. Previously noted distal left ureteral calculus is not clearly visualized on current exam Degenerative changes of spine. Partially imaged distal lead of cardiac device and median sternotomy wires. IMPRESSION: 1. Nonobstructive bowel gas pattern. 2. Linear density overlying left renal shadow, could represent a renal calculus. Distal left ureteral calculus, seen on prior exam, is not visualized on today's exam. Signed by: Dr. Brain Jackson MD on 01/02/2019 3:30 AM
--- NOTE | 2019-01-02 04:13 | NUR ---
PT REPORTS NO PAIN AT TIME OF DISCHARGE HOME.
[2019-01-02 04:14] VITALS: BP 138/64
== END 2019-01-02 04:17 | disposition home or self-care (01) ==
LOC: ER 01:45
DX: R30.0 Dysuria (principal); N20.2 Calculus of kidney with calculus of ureter; I10 Essential (primary) hypertension; I51.9 Heart disease, unspecified; N28.9 Disorder of kidney and ureter, unspecified
CPT/HCPCS: 36415; 74018; 80048; 85025; 99284; J0360; J0696; J2270; J2405; J7040

== ENCOUNTER 2019-01-03 20:45 | Observation (INO) | payer MEDICARE ==
[~2019-01-03] VITALS: Ht 188 cm; Wt 118.0 kg
[2019-01-03 21:57] LABS: BASOPHILS % 0.3 % (0.0-1.0); EOSINOPHILS # (AUTO) 0.1 (0.0-0.4); EOSINOPHILS % 1.7 % (0.0-6.0); HEMATOCRIT 37.8 % (38.2-49.6); HEMOGLOBIN 12.7 g/dL (14.0-18.0); LYMPHOCYTES # (AUTO) 0.5 (1.0-3.2); LYMPHOCYTES % 6.9 % (18.0-39.1); MEAN CORPUSCULAR HEMOGLOBIN 32.8 pg (28-32); MEAN CORPUSCULAR HGB CONC 33.6 g/dL (31-35); MEAN CORPUSCULAR VOLUME 97.7 fL (81-99); MONOCYTES # (AUTO) 0.7 (0.2-0.8); MONOCYTES % 8.5 % (4.4-11.3); NEUTROPHILS # (AUTO) 6.4 (2.1-6.9); NEUTROPHILS % 82.3 % (38.7-80.0); PLATELET COUNT 146 x10e3/uL (140-360); RED BLOOD COUNT 3.87 x10e6/uL (4.3-5.7); RED CELL DISTRIBUTION WIDTH 13.4 % (11.7-14.4)
[2019-01-03 22:14] LABS: ALBUMIN 3.5 g/dL (3.5-5.0); ALBUMIN/GLOBULIN RATIO 1.1 (0.8-2.0); ANION GAP 11.2 mmol/L (8-16); CALCIUM 8.8 mg/dL (8.4-10.2); CREATININE, SERUM 1.55 mg/dL (0.72-1.25); POTASSIUM 4.2 mmol/L (3.5-5.1)
--- NOTE | 2019-01-04 00:31 | Diagnostic Imaging Report ---
CT Abdomen and Pelvis without contrast INDICATION: Left flank pain, history of renal stones TECHNIQUE: Thin collimation axial images obtained from the diaphragm to the level of the pubic symphysis without nonionic intravenous contrast. Dose reduction techniques used: Automated exposure control, adjustment of the mAs and/or kVp according to patient size, standardized low-dose protocol, and/or iterative reconstruction technique. RADIATION DOSE: Total DLP: 865.73 mGy*cm Estimated effective dose: (DLP x 0.015 x size factor) mSv CTDIvol has been reviewed. It is below the limits set by the Radiation Protocol Committee (RPC). COMPARISON: CT abdomen/pelvis 12/31/2018. ABDOMEN FINDINGS: Lung Bases: The heart is enlarged and contains a pacer/defibrillator and cardiac bypass changes. Posterior pleural effusions have developed, measuring 18 mm on the right and 7 mm on the left. The lungs are diffusely hyperinflated consistent with COPD. There is mild bibasilar atelectasis. There is a small hiatal hernia. Liver: Normal in attenuation without mass. Gallbladder: Present and appears normal. No ductal dilatation. Pancreas: Normal attenuation without mass. Spleen: Normal size without mass. Adrenal Glands: No evidence for mass. Kidneys: Right: Punctate calculus in the interpolar region is stable. No collecting system dilatation. No cortical mass. Stable mild perinephric inflammation suggestive of lymphatic congestion. Left: Collecting system remains distended. Lower pole calculus measures 6 mm. There is diffuse perinephric inflammation, increased compared to previous exam. No cortical mass. Lymph Nodes: No enlarged abdominal or retroperitoneal lymph nodes. Aorta: Normal in diameter with diffuse calcifications PELVIS FINDINGS: Bowel: Stomach: Normal in caliber with normal wall thickness. Small Bowel: Normal in caliber with normal wall thickness. Large Bowel: Normal in caliber with normal wall thickness. Diverticulosis coli. No associated inflammation. Appendix: Not visualized and may be absent or collapsed. Bladder: Circumferential mural thickening. 3 mm calculus is within the bladder to the left of midline. Ureters: The left ureter is distended throughout its course with periureteric inflammation. A 4 mm calculus has migrated to the UVJ. The right ureter is collapsed without evidence of calculus. The prostate gland measures 5.0 x 6.0 cm. Peritoneum/retroperitoneum: No free fluid or fluid collection. Bones: Mild to moderate degenerative changes of the spine are stable. No compression deformities. Soft tissues: Fat-containing umbilical hernia is stable with an aperture of 14 mm. IMPRESSION: 1. 4 mm obstructing calculus has migrated to the left UVJ. 3 mm calculus within the bladder. 2. Stable bilateral intrarenal calculi. 3. Prostate hypertrophy and bladder wall thickening suggestive of outlet obstruction. 4. New bilateral pleural effusions as described above. 5. Diverticulosis coli. Small hiatal hernia. Stable fat-containing umbilical hernia. Signed by: Dr. Taye Deleon MD on 01/04/2019 12:28 AM
[2019-01-04 00:57] LABS: BILIRUBIN,URINE NEGATIVE (NEGATIVE); CLARITY,URINE CLOUDY (CLEAR); COLOR,URINE AMBER (YELLOW); KETONES,URINE NEGATIVE (NEGATIVE); LEUKOCYTE ESTERASE ,URINE NEGATIVE (NEGATIVE); NITRITE,URINE NEGATIVE (NEGATIVE); PROTEIN,URINE DIPSTICK TRACE (NEGATIVE); URINE UROBILINOGEN 0.2 mg/dL (0.2 - 1)
[2019-01-04] MEDS ORDERED: SODIUM CHLORIDE 0.9% 1000ML 1,000 ML IV SCH (01:30)
[2019-01-04 01:54] LABS: BACTERIA,URINE FEW /HPF; EPITHELIAL CELLS,URINE FEW /LPF; MUCUS,URINE MODERATE (RARE); RBC,URINE >50 /HPF (0-5); WBC,URINE (MAN) 0-5 /HPF (0-5)
[2019-01-04] MEDS: CEFTRIAXONE SOD 1 GM VIAL IV SCH (03:13)
[2019-01-04] MEDS: HYDROMORPHONE 2MG/ML 2 MG/ML ML IV PRN (03:13)
[2019-01-04] MEDS: ONDANSETRON HCL INJ 2MG/ML 2ML 2 MG/ML VIAL IV PRN ×2 (03:14→15:15)
[2019-01-04] MEDS ORDERED: NITROGLYCERIN 0.4 MG SUBL SL PRN (09:30)
[2019-01-04] MEDS ORDERED: NITROGLYCERIN 0.4 MG SL SCH (09:30)
--- NOTE | 2019-01-04 09:30 | NUR ---
PT INFORMED ON THE NEED TO STRAIN URINE PER ORDERS FROM DR. Jess YU, UROLOGIST. PT VERABLZIED UNDERSTANDING. URINE STRAIN AND URINAL PROVIDED FOR PT.
[2019-01-04 09:37] LABS: BASOPHILS % 0.3 % (0.0-1.0); EOSINOPHILS # (AUTO) 0.2 (0.0-0.4); EOSINOPHILS % 2.7 % (0.0-6.0); HEMATOCRIT 35.2 % (38.2-49.6); HEMOGLOBIN 12.1 g/dL (14.0-18.0); LYMPHOCYTES # (AUTO) 0.7 (1.0-3.2); LYMPHOCYTES % 9.9 % (18.0-39.1); MEAN CORPUSCULAR HEMOGLOBIN 32.8 pg (28-32); MEAN CORPUSCULAR HGB CONC 34.4 g/dL (31-35); MEAN CORPUSCULAR VOLUME 95.4 fL (81-99); MONOCYTES # (AUTO) 0.6 (0.2-0.8); MONOCYTES % 9.6 % (4.4-11.3); NEUTROPHILS # (AUTO) 5.1 (2.1-6.9); PLATELET COUNT 121 x10e3/uL (140-360); RED BLOOD COUNT 3.69 x10e6/uL (4.3-5.7); RED CELL DISTRIBUTION WIDTH 13.5 % (11.7-14.4)
[2019-01-04 09:55] LABS: ANION GAP 11.6 mmol/L (8-16); CALCIUM 8.2 mg/dL (8.4-10.2); CREATININE, SERUM 1.31 mg/dL (0.72-1.25); POTASSIUM 3.6 mmol/L (3.5-5.1)
--- NOTE | 2019-01-04 10:05 | NUR ---
X-RAY AT BEDSIDE AT THIS TIME FOR PORTABLE CXR.
[2019-01-04] MEDS: TORSEMIDE 10 MG TAB PO SCH (10:15)
--- NOTE | 2019-01-04 10:31 | Diagnostic Imaging Report ---
Examination: Single AP view of the chest. COMPARISON: CT abdomen and pelvis without contrast 01/04/2019 INDICATION: CHF DISCUSSION: The lungs are well-inflated. Interstitial prominence with trace blunting of the bilateral costophrenic sulci. Enlargement of the cardiac silhouette with left subclavian approach implantable cardiac device and median sternotomy wires. No acute osseous abnormality. IMPRESSION: Enlargement of the cardiac silhouette with interstitial pulmonary edema and trace bilateral pleural effusions. Signed by: Dr. Devante Holliday M.D. on 01/04/2019 10:28 AM
[2019-01-04 11:50] VITALS: BP_SYST 160; BP_SYST 198; BP_DIAS 69; BP_DIAS 92
--- NOTE | 2019-01-04 11:50 | NUR ---
PATIENT ARRIVED TO ROOM 181, FAMILY AT BEDSIDE. HE IS IN STABLE CONDITION. DENIES PAIN OR DISCOMFORT. ADMISSION HISTORY AND INITIAL PHYSICAL ASSESSMENT COMPLETED AND DOCUMENTED. PATIENT ORIENTED TO ROOM AND POLICIES. CALL LIGHT WITHIN REACH. BED IN THE LOWEST POSITION.
[2019-01-04] MEDS ORDERED: FUROSEMIDE INJ 10 MG/ML 4 ML VIAL IV STA (12:19)
[2019-01-04 12:34] VITALS: BP 192/98
[2019-01-04 12:35] VITALS: BP 198/92
[2019-01-04 12:36] VITALS: BP 198/92
[2019-01-04] MEDS: ISOSORBIDE MONONITRATE 30 MG TAB CR PO SCH (13:29)
[2019-01-04] MEDS: CARVEDILOL 12.5 MG TAB PO SCH ×2 (13:29→16:46)
--- NOTE | 2019-01-04 13:30 | NUR ---
Visit made by the Spiritual Care Department Pastoral Visitor, Felicitas Howard. Pt sleeping soundly and no family present. Pastoral Visitor left a card describing availability of undergraduate intern and instructions on how to contact a undergraduate intern. HUMZA CONDON Circ[employer] Laborer Spiritual Care Department O: [phone] Pager: [phone] ([phone] number calling from)
--- NOTE | 2019-01-04 14:39 | Consultation ---
DATE OF CONSULTATION: 01/04/2019 REASON FOR CONSULTATION: Left flank pain. HISTORY OF PRESENT ILLNESS: An 78-year-old male, well known to me for having kidney stone in 2017. In 2017, he was seen in my office after undergoing a CT scan because of left flank pain. At that time, he had a 3 mm stone at the ureterovesical junction with mild hydronephrosis and another small stone in the kidney itself. At that time, the patient did pass the stone and I told him that I would not be doing anything else for his other solitary kidney stone. We discussed the fact that he had multiple medical conditions, was on Plavix and aspirin, and the decision was to wait until he had a second episode and at that time we would take care of whatever stone he had if we needed to remove it, since at that time the stone in the kidney was 3 mm. Now, the patient is admitted to the hospital after the third visit to the emergency room in [address] scan was done 5 days ago. At that time, he had a 3 mm stone in the ureterovesical junction with 2 other stones in the left kidney. He was sent home only to return with pain. A KUB was done, which was nondiagnostic. The patient went home and 2 days later returns back to the emergency room with more pain. CT scan at this time shows that the 3 mm stone that he had in the ureterovesical junction passed into the bladder, that a 4 mm stone that he has in the ureterovesical junction that was up in the kidney only 3 days ago is now at the ureterovesical junction and the patient has another 6 mm stone in the lower pole collecting system of the left kidney. I had a long discussion with the patient and his regarding the condition now. I did also speak with Dr. Matthew on the phone concerning his other multiple medical conditions. ALLERGIES: CODEINE. MEDICATIONS: Allopurinol 300 mg one tablet a day, amiodarone 200 mg daily, aspirin 81 mg daily, carvedilol 6.25 mg daily, isosorbide extended release 60 mg tablets daily, lisinopril 2.5 mg daily, mexiletine 100 mg daily, pantoprazole sodium 40 mg daily, Plavix 75 mg daily, potassium chloride 20 mEq, and Lasix 20 mg daily. PAST SURGICAL HISTORY: Appendectomy and coronary artery bypass grafting. PAST MEDICAL HISTORY: Erectile dysfunction. PAST MEDICAL HISTORY: Kidney stones. PHYSICAL EXAMINATION: UROLOGIC: A large abdomen, at the present time has no pain. Has a large umbilical hernia. No inguinal hernias are palpable. Testicles are descended. Penis is normal. Prostate examination, about 45-50 g prostate. All of these confirmed by CT scan examination as well. IMPRESSION: Left distal ureteral calculi, third admission to the hospital. RECOMMENDATION: On the CT scan, the patient has cardiomegaly. The patient also states that he has gained weight since these episodes started. I discussed that with Dr. Wooten, who is going to communicate to me after he examines the patient and checks his chest x-ray whether he is in congestive heart failure or not. I discussed with Dr. Wooten, that Dr. Velazquez is Mr. Patricia' map colorer. The patient and I discussed procedure, if we are going to do it, we will do it tomorrow, get clearance from Dr. Wooten before we do anything, the stone is very low, small enough to pass, so if he has continuation of pain, we would do a procedure tomorrow or not. He still has the stone up in the kidney, that one is 6 mm, but I am not proposing to do anything about that. The patient needs some Plavix and aspirin, has not been off his medications and therefore scoping the right side and using laser would not be appropriate right now because of the amount of bleeding that could happen. I discussed with the patient and his . While trying to educate the patient and his about cardiac clearance and other doctor working, a friend of the family came into the room and told me point-blank that I should not be discussing anything that could upset the patient anymore that he is upset at the present time. I do not know this lady, do not even know her name, she was quite rude, so I gave her my name and told her to remember my name, so she does not call me for any reason. After that, the and the patient asked the lady to not get into our affairs of discussion about , she is not even part of the family, she is just a friend. Quite a histrionic of conversation with the young lady, definitely, I do not want her as my patient and I told her so and given my name so that she never have to call me. Regardless, towards the patient, we did agree that we would proceed on with the observation today, that I will wait until I spoke with Dr. Wooten and I got Dr. Wooten to call me back concerning his congestive heart failure and cardiomegaly and his weight gain to see if it is safe to put him to sleep tomorrow or not, and I will communicate with him the time that we have planned for the procedure. I discussed and obtained permission from him and his verbal, that will be signed as a consent for cystoscopy, retrograde pyelogram, ureteroscopy laser, and stone extraction with double-J if needed. MD AMAYA Love/MODL /[id number]
[2019-01-04 15:32] VITALS: BP 157/73
[2019-01-04] MEDS ORDERED: FUROSEMIDE INJ 10 MG/ML 4 ML VIAL IV ONE (16:00)
--- NOTE | 2019-01-04 16:41 | History and Physical ---
CHIEF COMPLAINT: Left flank pain. HISTORY OF PRESENT ILLNESS: This is an 78-year-old white man, who presents to [facility] with a 5-day history of worsening left flank pain that radiates to his left lumbar abdominal area and eventually to the suprapubic area. The patient does have a history of kidney stones. This is actually the third visit in the last 5 days for this gentleman with the same complaints. The patient was found to have a nonobstructing left-sided kidney stone on the previous 2 emergency room visits, but was sent home with pain medications and instructed to drink plenty of fluids. Early this morning, he returned with intense left flank pain as previously stated and repeat CT of the abdomen and pelvis without contrast did reveal a 4 mm obstructing calculus that has migrated to the left ureterovesical junction. A 3 mm calculus was appreciated within the bladder. The CT abdomen and pelvis also revealed prostate hypertrophy with bladder wall thickening as well as new bilateral pleural effusions. The patient also found to have diverticulosis, but no clear evidence of diverticulitis. In the emergency room, the patient was found to have a white blood cell count of 7700 with 82% segmented neutrophils. Hemoglobin was 12.7 g/dL. The patient was also found to have a BUN and creatinine of 25 and 1.55 respectively, which is elevated from his baseline level. Urinalysis performed in the emergency room revealed cloudy alisha urine, 4+ blood, greater than 50 red blood cells per high power field, 0-5 white blood cells per high power field with few bacteria. The patient was admitted for further evaluation and treatment. REVIEW OF SYSTEMS: GENERAL: The patient's weight increased 10 pounds in the last week, but he has not been taking his diuretics due to his kidney stone issues. No fever or chills. HEENT: No headaches. No visual changes. CARDIOVASCULAR: No chest pain, no shortness of breath, but he does have dyspnea on exertion. No cough. GI: Complains of intense nausea with the left flank pain for the last 5 days. He has only had one episode of vomiting. No diarrhea. He does complain of abdominal pain as previously stated that radiates from his left flank area to the left lumbar abdominal area and then on to the suprapubic area. : Complains of orange colored urine for the last 5 days. No dysuria though. NEUROMUSCULAR: Complains of left flank pain as previously stated for last 5 days. ALLERGIES: NO KNOWN DRUG ALLERGIES. PAST MEDICAL HISTORY: 1. Ischemic heart disease. 2. Chronic diastolic congestive heart failure. 3. 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 4. Hypertensive heart disease. 5. Stage 1 chronic kidney disease. 6. Peripheral neuropathy. 7. Obstructive sleep apnea. 8. Obesity. BMI of 33. 9. History of kidney stone. 10. History of recurrent gout. 11. Chronic lower leg edema. PAST SURGICAL HISTORY: 1. Coronary artery bypass grafting in November 2002. 2. Multiple coronary artery stent placements. 3. Pacemaker placement. 4. AICD placement. 5. 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 6. Appendectomy. 7. Left total knee replacement in 2016. SOCIAL HISTORY: This man is , lives with his . 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 The patient quit smoking tobacco in 1977. No history of alcohol or illicit drug use. HOME MEDICATIONS: 1. Lisinopril 5 mg daily. 2. Uloric 40 mg daily. 3. Amiodarone 100 mg daily. 4. Mexiletine 150 mg daily. 5. Tylenol with Codeine No. 4 one b.i.d. p.r.n. pain. 6. Vitamin B12, 1000 mcg daily. 7. Pantoprazole 40 mg daily. 8. Torsemide 20 mg daily. 9. Carvedilol 12.5 mg b.i.d. 10. Albuterol inhaler 2 puffs q.i.d. 11. Vitamin D3, 5000 units daily. 12. Imdur 60 mg daily. 13. Nitroglycerin 0.4 mg one sublingual every 5 minutes p.r.n. chest pain. 14. Aspirin 81 mg daily. 15. Clopidogrel 75 mg daily. PHYSICAL EXAMINATION: GENERAL: He is awake, alert, and oriented, in no distress, very pleasant and conversant. VITAL SIGNS: Height 6 feet 2 inches, weight is 265 pounds, BMI of 33. Blood pressure is 156/98, pulse is 74, respiratory rate is 18, oxygen saturation is 96% on room air, and temperature 98.4. INTEGUMENTARY: Skin is warm and dry. No pallor or diaphoresis. HEENT: Anicteric sclerae. Moist mucous membranes. NECK: Supple. CARDIOVASCULAR: Distant heart sounds. Regular rate and rhythm. LUNGS: No rales. No rhonchi. No wheezes. ABDOMEN: Obese. EXTREMITIES: The patient has 1+ edema in the bilateral lower legs, 2+ edema in the bilateral pedal area. NEUROLOGIC: Intact. No gross focal deficits appreciated. Decreased pinprick sensation to plantar aspect of bilateral feet. DIAGNOSES: 1. Obstructing left-sided ureteral stone (4 mm). 2. History of kidney stones. 3. Acute on chronic renal failure. 4. Coronary artery disease. 5. Hypertensive heart disease. 6. Acute on chronic diastolic congestive heart failure. PLAN: 1. We will order chest x-ray. 2. Gentle intravenous fluids. 3. Restart congestive heart failure medical management. 4. Pain control. 5. Antiemetics. 6. Consult Urology. I spent an hour in the care of this patient. MD MAGALY Ferguson/BROOKE /[id number]
[2019-01-04] MEDS: PANTOPRAZOLE SOD 40 MG TABEC PO SCH (16:46)
[2019-01-04] MEDS: NON-FORMULARY MEDICATION (Mexiletine Hcl 150 MG) PO SCH (16:46)
[2019-01-04] MEDS: DOCUSATE SODIUM 100 MG CAP PO SCH (16:46)
[2019-01-04] MEDS ORDERED: CARVEDILOL 12.5 MG TAB PO SCH (17:00)
[2019-01-04] MEDS ORDERED: NON-FORMULARY MEDICATION (Mexiletine Hcl 150 MG) PO SCH (17:00)
--- NOTE | 2019-01-04 19:20 | NUR ---
REPORT GIVEN TO ONCOMING NURSE, PATIENT IS RESTING IN BED. RESPIRATIONS EVEN AND UNLABORED. NO ACUTE DISTRESS NOTED. CALL LIGHT WITHIN REACH. BED IN THE LOWEST POSITION.
[2019-01-04 20:00] VITALS: BP 128/68
[2019-01-04] MEDS: LISINOPRIL 2.5 MG TAB PO SCH (20:43)
[2019-01-04] MEDS ORDERED: LISINOPRIL 2.5 MG PO SCH (21:00)
[2019-01-05] VITALS (7 sets, daily range): BP systolic 138–182; BP diastolic 70–87
[2019-01-05] MEDS: HYDROMORPHONE 2MG/ML 2 MG/ML ML IV PRN ×3 (01:38→21:04)
[2019-01-05] MEDS: CEFTRIAXONE SOD 1 GM VIAL IV SCH (01:40)
[2019-01-05] MEDS ORDERED: SODIUM CHLORIDE 0.9% 250ML 250 ML ONE (01:43)
[2019-01-05] MEDS: DIPHENHYDRAMINE HCL INJ 50 MG/ML VIAL IV PRN ×2 (04:37→22:08)
[2019-01-05 05:40] LABS: BASOPHILS % 0.4 % (0.0-1.0); EOSINOPHILS # (AUTO) 0.2 (0.0-0.4); EOSINOPHILS % 3.3 % (0.0-6.0); HEMATOCRIT 40.5 % (38.2-49.6); HEMOGLOBIN 13.4 g/dL (14.0-18.0); LYMPHOCYTES % 13.1 % (18.0-39.1); MEAN CORPUSCULAR HEMOGLOBIN 32.2 pg (28-32); MEAN CORPUSCULAR HGB CONC 33.1 g/dL (31-35); MEAN CORPUSCULAR VOLUME 97.4 fL (81-99); MONOCYTES # (AUTO) 0.7 (0.2-0.8); MONOCYTES % 9.6 % (4.4-11.3); NEUTROPHILS # (AUTO) 5.4 (2.1-6.9); NEUTROPHILS % 73.3 % (38.7-80.0); PLATELET COUNT 147 x10e3/uL (140-360); RED BLOOD COUNT 4.16 x10e6/uL (4.3-5.7); RED CELL DISTRIBUTION WIDTH 13.2 % (11.7-14.4)
[2019-01-05 06:02] LABS: ANION GAP 14.1 mmol/L (8-16); CALCIUM 9.2 mg/dL (8.4-10.2); CREATININE, SERUM 1.83 mg/dL (0.72-1.25); POTASSIUM 4.1 mmol/L (3.5-5.1)
--- NOTE | 2019-01-05 06:40 | NUR ---
rounded with lightout examiner nurse, patient resting in bed. Patient in no distress, call moncada within reach and bed in lowest position.
[2019-01-05] MEDS: TORSEMIDE 10 MG TAB PO SCH (09:00)
[2019-01-05] MEDS: CARVEDILOL 12.5 MG TAB PO SCH ×2 (09:00→16:47)
[2019-01-05] MEDS: CLOPIDOGREL BISULFATE 75 MG TAB PO SCH (09:00)
[2019-01-05] MEDS: AMIODARONE HCL 200 MG TAB PO SCH (09:00)
[2019-01-05] MEDS ORDERED: NON-FORMULARY MEDICATION (Isosorbide Mononitrate (Isosorbide Mononitrate Er) 60 MG) PO SCH (09:00)
[2019-01-05] MEDS ORDERED: ISOSORBIDE MONONITRATE 30 MG TAB CR PO SCH (09:00)
[2019-01-05] MEDS: DOCUSATE SODIUM 100 MG CAP PO SCH ×2 (09:00→16:47)
[2019-01-05] MEDS: ASPIRIN 81 MG CHEW TAB PO SCH (09:00)
[2019-01-05] MEDS: ISOSORBIDE MONONITRATE 30 MG TAB CR PO SCH (09:00)
[2019-01-05] MEDS: PANTOPRAZOLE SOD 40 MG TABEC PO SCH ×2 (09:00→16:48)
[2019-01-05] MEDS: NON-FORMULARY MEDICATION (Mexiletine Hcl 150 MG) PO SCH ×2 (09:00→16:47)
--- NOTE | 2019-01-05 09:48 | NUR ---
Patient leaving floor for xray at this time, patient in no distress and will go by wheelchair.
--- NOTE | 2019-01-05 10:05 | NUR ---
patient arrived back to floor via wheelchair, alert and oriented and in no distress.
--- NOTE | 2019-01-05 11:07 | Diagnostic Imaging Report ---
Exam: Left forearm radiographs-2 views History: Status post fall with contusion. Comparison: None. Findings: No evidence of acute fracture, malalignment, or soft tissue abnormality. There is deformity of the distal radius and ulna, suggestive of prior trauma. No evidence of overlying soft tissue swelling. Radiopaque densities project over the partially seen third metacarpal head. Impression: No acute radiographic abnormality. Deformity of the distal radius and ulna, suggestive of remote trauma. Radiopaque densities project over the partially seen third metacarpal head. This is more likely to reflect detector artifact rather than foreign body in the absence of trauma to this location. If clinical suspicion for foreign body, hand radiographs may be obtained for further evaluation. Signed by: Dr. Jeremy Gray MD on 01/05/2019 11:04 AM
[2019-01-05] MEDS ORDERED: BELLADONNA/OPIUM 30 MG SUPP RC ONE (12:48)
[2019-01-05] MEDS ORDERED: IOPAMIDOL 610MG/1ML 300 MG/ML VIAL IV ONE (12:49)
--- NOTE | 2019-01-05 12:55 | NUR ---
Patient leaving floor via hospital bed to OR for procedure.
--- NOTE | 2019-01-05 13:55 | NUR ---
SOCIAL WORK INITIAL ASSESSMENT Pipe Fitter Apprentice to bedside to discuss plan of care with patient/family. CM/SW role and care transitions discussed. Anticipated discharge plan discussed along with duration of care. CM/SW discussed patients right to make decisions in care. CM/SW work hours given. Patient lives: HOUSE WITH FAMILY Admit/Transfer: VIA ED POA/Emergency contact: SARAH [phone] Current/Previous Home Health: NONE PCP/Follow-up Care: JULUIS Current/Previous DME: NONE Other Services: NONE Employment Status: RETIRED Areas of Concerns: NONE Referral Needs: NONE Education Needs: NONE IMM/ANGELES given and signed (if applicable): UPON ADMISSION Goal for discharge: RETURN HOME CM/SW left business card at the bedside with contact information. Name and number was also written on the patients whiteboard. Patient verbalized understanding of discussion. CM will follow-up with ongoing discharge and transition of care needs.
[2019-01-05] MEDS ORDERED: FENTANYL CITRATE/PF 100MCG/2 ML INJ ONE ×2 (14:44→18:49)
--- NOTE | 2019-01-05 15:13 | NUR ---
report received from February. Patient alert and oriented and to return to floor via hospital bed.
[2019-01-05] MEDS ORDERED: HYDROMORPHONE 2MG/ML 2 MG/ML ML ONE (15:30)
--- NOTE | 2019-01-05 15:45 | NUR ---
Patient returned to floor via hospital bed, alert and oriented and in no distress.
[2019-01-05] MEDS ORDERED: ONDANSETRON HCL INJ 2MG/ML 2ML 2 MG/ML VIAL ONE (17:20)
[2019-01-05] MEDS ORDERED: CEFAZOLIN SOD 1 GM VIAL ONE (17:20)
[2019-01-05] MEDS ORDERED: LIDOCAINE HCL 2% LOCAL INJ 5 ML SDV VIAL INJ ONE (17:20)
[2019-01-05] MEDS ORDERED: DEXAMETHASONE SOD PHOS INJ 4 MG/ML VIAL ONE (17:20)
[2019-01-05] MEDS ORDERED: PROPOFOL IV EMULSION 10 MG/ML 20 ML VIAL ONE (17:20)
[2019-01-05] MEDS ORDERED: SEVOFLURANE INHAL SOLN 250 ML PEN BTL ONE (17:20)
--- NOTE | 2019-01-05 18:13 | Operative Report ---
DATE OF PROCEDURE: 01/05/2019 SURGEON: Giacomo Cabrera MD PREOPERATIVE DIAGNOSIS: Left ureteral and renal calculi. POSTOPERATIVE DIAGNOSIS: Left ureteral and renal calculi. OPERATIONS PERFORMED: Cystoscopy, retrograde pyelograms, left rigid and flexible ureteroscopy with laser lithotripsy of ureteral stone and left renoscopy with laser lithotripsy of renal calculi. ANESTHESIA: Anesthesia staff, general. FINDINGS: The patient had a normal urethra. Prostate, high-riding with no intravesical component. Grade 1-2 trabeculation with cellules was seen within the bladder. Ureteral orifice, right normal; left, you could see that there was some swelling and a stone was seen in the ureteral meatus. No lesions were found in the bladder. The kidney contained another larger stone, approximately 7 mm. This was in the lower pole and it was treated and left the fragments to pass. PROCEDURE IN DETAIL: With the patient under satisfactory general anesthesia, the patient was placed in the supine position on the operating table, legs were placed and solution and draped in the usual manner. A #22 Singaporean cystourethroscope was passed per urethra into the bladder and the bladder was inspected. After that, it was noted that there was a ureteral stone just barely seen at the ureteral meatus. No others stones were seen within the bladder. At this point, the guidewire was used to push the stone up into the ureter and advanced all the way up to the kidney. With the guidewire in place, a rigid ureteroscope was placed in up the ureter until the stone was visualized. Visualization of the stone was made. It was treated with a laser, broken into 2 pieces, and these pieces were removed using a nitinol basket. Once that was done, then with the guidewire in place and the rigid ureteroscope out, I introduced the short ureteral access sheath, #12 Singaporean, and after removing the introducer and the guidewire, the flexible ureteroscope was introduced without any difficulty all the way up to the kidney. The kidney was then identified, the calyces were also identified, and the stone in the lower pole was also identified. The stone was treated with a laser to break it into multiple small fragments. No attempt was made to remove these fragments since they were small enough to pass. At this point, the guidewire was reintroduced into the kidney after the instruments were removed. The #6 Singaporean double-J was used to drain the kidney advancing it all the way up to the kidney, removing the guidewire, and then pushing contrast media to verify that there was no extravasation. No extravasation was seen. At this point, with no extravasation identified, then the double-J was J'd in the bladder. This was used to disengage the pusher and leave the double-J in place. The string was then taped to the patient's penis. The patient was taken to the recovery room in satisfactory condition. UROLOGICAL DISCHARGE INSTRUCTIONS: I sent a message to Dr. Matthew. The patient obviously with cardiomegaly and fluid overload needs to be observed today. Tomorrow morning, he can go home as per Dr. Matthew. I will follow him in the office next Thursday and then check his urine. Important to remember that the patient's Plavix and aspirin were not stopped. He will have a little bit more blood in the urine for a few days. I may need to keep the double-J in place for an extra week if necessary until the bleeding stops. I discussed all this with the patient's and gave her instructions and left prescriptions on the chart. MD AMAYA Love/MODL /[id number]
--- NOTE | 2019-01-05 18:22 | NUR ---
RCD PT FROM OBS BY BED PT IS ALERT AND ORIENTED VITALS CHECKED PT RESTING ON BED FAMILY AT BED SIDE BED LOW AND LOCKED CALL LIGHT IN REACH
--- NOTE | 2019-01-05 19:00 | NUR ---
PT RESTING ON BED BED SIDE REPORT GIVEN TO ONCOMING NURSE
--- NOTE | 2019-01-05 19:29 | Consultation ---
DATE OF CONSULTATION: 01/05/2019 Cardiology Consult Note REASON FOR CONSULTATION: Coronary artery disease and congestive heart failure. CHIEF COMPLAINT: Left flank pain. HISTORY OF PRESENT ILLNESS: This is an 78-year-old man, who is known to our clinic. He has history of coronary artery disease status post bypass surgery and several stents. He has ischemic cardiomyopathy with chronic systolic heart failure with frequent PVCs, status post PVC ablation in the past. He also has history of pacemaker placement. He presented to the hospital with 5-day history of worsening left flank pain. The patient has a history of kidney stones and was found to have 4 mm obstructing kidney stone. He is admitted for further urological workup and intervention. He denies any ongoing chest pain, shortness of breath, orthopnea, or paroxysmal nocturnal dyspnea. REVIEW OF SYSTEMS: As per the HPI, otherwise negative. ALLERGIES: NO KNOWN DRUG ALLERGIES. PAST MEDICAL HISTORY: 1. Coronary artery disease status post bypass surgery and several stents. 2. Ischemic cardiomyopathy. 3. Chronic systolic heart failure. 4. Frequent premature ventricular contractions. 5. Hypertension. 6. Chronic kidney disease. 7. Obesity. 8. History of kidney stones. PAST SURGICAL HISTORY: 1. Coronary artery bypass surgery in 2003. 2. Pacemaker placement. 3. PVC ablation. 4. Appendectomy. 5. Left total knee replacement in 2017. SOCIAL HISTORY: The patient is a former smoker, quit many years ago. Does not drink or abuse drugs. OUTPATIENT MEDICATIONS: Reviewed. OBJECTIVE: VITAL SIGNS: Blood pressure 156/98, pulse 74, respiratory rate 18, saturating 96% on room air, temperature is afebrile. GENERAL: Obese, elderly white man, in no acute distress. CARDIOVASCULAR: Regular rate and rhythm. No murmurs, rubs, or gallops. LUNGS: Clear to auscultation bilaterally. ABDOMEN: Obese, soft, nontender, nondistended. NEURO AND PSYCH: Alert and oriented to person, place, and time. Normal affect. INPATIENT MEDICATIONS: Reviewed. LABORATORY DATA: Reviewed. Notable for creatinine of 1.8. IMAGING DATA: Reviewed. TELEMETRY DATA: Reviewed, shows normal sinus rhythm. ASSESSMENT: 1. Coronary artery disease status post coronary artery bypass surgery in 2003 and several stents since bypass surgery. 2. Ischemic cardiomyopathy. 3. Chronic systolic heart failure. 4. Sinus bradycardia status post pacemaker placement. 5. Frequent premature ventricular contractions status post PVC ablation. 6. Hypertension. 7. Hyperlipidemia. PLAN: Doing well from cardiovascular standpoint. Continue home cardiovascular medications. Continue monitoring telemetry. Echocardiogram is pending. Thank you for this consult. We will continue to follow. MD LACHO Nicolas/BROOKE /[id number]
[2019-01-05] MEDS: LISINOPRIL 2.5 MG TAB PO SCH (21:04)
--- NOTE | 2019-01-05 23:51 | NUR ---
PAGED AND SPOKE WITH DR MADRID,N/O RECEIVED AND ENTERED.
[2019-01-06] MEDS: HYDROMORPHONE 2MG/ML 2 MG/ML ML IV PRN ×2 (00:14→07:10)
[2019-01-06] MEDS: SODIUM CHLORIDE 0.9% 1000ML 1,000 ML IV SCH ×2 (00:14→10:00)
[2019-01-06 00:49] VITALS: BP 142/63
[2019-01-06] MEDS: CEFTRIAXONE SOD 1 GM VIAL IV SCH (01:30)
[2019-01-06 05:05] LABS: BASOPHILS % 0.1 % (0.0-1.0); HEMATOCRIT 40.4 % (38.2-49.6); HEMOGLOBIN 13.7 g/dL (14.0-18.0); LYMPHOCYTES # (AUTO) 0.4 (1.0-3.2); LYMPHOCYTES % 4.4 % (18.0-39.1); MEAN CORPUSCULAR HEMOGLOBIN 32.3 pg (28-32); MEAN CORPUSCULAR HGB CONC 33.9 g/dL (31-35); MEAN CORPUSCULAR VOLUME 95.3 fL (81-99); MONOCYTES # (AUTO) 0.5 (0.2-0.8); NEUTROPHILS # (AUTO) 8.1 (2.1-6.9); NEUTROPHILS % 90.1 % (38.7-80.0); PLATELET COUNT 164 x10e3/uL (140-360); RED BLOOD COUNT 4.24 x10e6/uL (4.3-5.7); RED CELL DISTRIBUTION WIDTH 13.2 % (11.7-14.4)
[2019-01-06 05:54] LABS: ALBUMIN 3.5 g/dL (3.5-5.0); ANION GAP 13.5 mmol/L (8-16); CALCIUM 9.2 mg/dL (8.4-10.2); CREATININE, SERUM 1.52 mg/dL (0.72-1.25); POTASSIUM 4.5 mmol/L (3.5-5.1)
[2019-01-06 06:17] VITALS: BP 170/72
--- NOTE | 2019-01-06 07:00 | NUR ---
RCD PT BED PT IS ALERT AND ORIENTED PT RESTING ON BED NO SIGNS OF ANY DISTRESS NOTED FAMILY AT BED SIDE BED LOW AND LOCKED CALL LIGHT IN REACH
[2019-01-06] MEDS: DIPHENHYDRAMINE HCL INJ 50 MG/ML VIAL IV PRN (07:10)
--- NOTE | 2019-01-06 07:10 | NUR ---
REPORT GIVEN TO ONCOMING NURSE,WALKING ROUNDS MADE.PT RESTING IN BED WITH NO S/S OF DISTRESS.
[2019-01-06 08:00] VITALS: BP 198/85
[2019-01-06] MEDS: DOCUSATE SODIUM 100 MG CAP PO SCH (09:00)
[2019-01-06] MEDS: TORSEMIDE 10 MG TAB PO SCH (09:00)
[2019-01-06] MEDS: AMIODARONE HCL 200 MG TAB PO SCH (09:00)
[2019-01-06] MEDS: CARVEDILOL 12.5 MG TAB PO SCH (09:00)
[2019-01-06] MEDS: NON-FORMULARY MEDICATION (Mexiletine Hcl 150 MG) PO SCH (09:00)
[2019-01-06] MEDS: ISOSORBIDE MONONITRATE 30 MG TAB CR PO SCH (09:00)
[2019-01-06] MEDS: CLOPIDOGREL BISULFATE 75 MG TAB PO SCH (09:00)
[2019-01-06] MEDS: ASPIRIN 81 MG CHEW TAB PO SCH (09:00)
[2019-01-06] MEDS: PANTOPRAZOLE SOD 40 MG TABEC PO SCH (09:00)
--- NOTE | 2019-01-06 10:16 | NUR ---
PAGED AND TALKED DR YU TO THE DISCHARGE APPROVAL
[2019-01-06] MEDS ORDERED: TALWIN30 MG/1 M1 (10:26)
[2019-01-06] MEDS ORDERED: PENTAZOCINE-NA1 EACH PO (10:28)
[2019-01-06] MEDS ORDERED: KEFLEX500 MG PO (10:29)
--- NOTE | 2019-01-06 10:57 | NUR ---
pt went home in safe condition with his
--- NOTE | 2019-01-06 17:21 | Diagnostic Imaging Report ---
Retrograde pyelogram Technique: Fluoroscopic spot images are provided from intraoperative retrograde pyelogram. Request provided for diagnostic Radiology interpretation. History: Stone ablation, urinary stent placement Comparison: CT Abdomen/Pelvis 01/04/19. Findings: Initial images demonstrate cannulation of the bladder and subsequently the left ureter. Wire is placed through the left ureter into the renal pelvis. Subsequently a left internal double-J ureteral stent with proximal pigtail overlying the left renal pelvis and the distal pigtail overlying the bladder was placed. Contrast injection demonstrates appropriate positioning. Previously noted left UVJ and left renal stones are no longer seen, although evaluation of the left kidney is somewhat limited. No evidence of hydronephrosis. Conclusion: Fluoroscopic placement of left double-J internal ureteral stent in appropriate positioning. Retrograde pyelogram demonstrates no evidence of hydronephrosis or obstructing stone. Signed by: Dr. Jeremy Gray MD on 01/06/2019 5:17 PM
[2019-01-07] MEDS ORDERED: HYDROCODON-ACE1 EA12 PO (04:24)
[2019-01-07] MEDS ORDERED: TAMSULOSIN HCL0.4 MG PO (04:24)
--- NOTE | 2019-01-07 05:16 | Discharge Summary ---
ADMIT DIAGNOSES: 1. Obstructing left-sided ureteral stone (4 mm). 2. History of kidney stones. 3. Jxlvf-rk-krtwpng renal failure. 4. Coronary artery disease. 5. Hypertensive heart disease. 6. Hxouy-op-ydpqruu diastolic congestive heart failure. DISCHARGE DIAGNOSES: 1. Status post cystoscopy with left laser lithotripsy and ureteral stone removal. 2. Uzbxl-oq-fshiwvc renal failure, resolving. 3. Mbpva-cf-wnnjrut diastolic heart failure, resolving. 4. Hypertensive heart disease. 5. Coronary artery disease. HOSPITAL COURSE: This is an 78-year-old white man, who was initially admitted to [facility] with diagnosis of obstructing left-sided ureteral stone (4 mm in size in the ureterovesical junction). The patient was also found to have a left-sided lower pole calculus measuring 6 mm. The left kidney did reveal diffuse perinephric inflammation on the CT of abdomen and pelvis on this admission. During this hospitalization, patient received intravenous fluids and ceftriaxone. On admission, the patient's BUN and creatinine were 25 and 1.55 respectively. The patient's BUN and creatinine got as high as 27 and 1.83. On the day of discharge, the patient's BUN and creatinine were 31 and 1.52. The patient was seen by Cardiology during this hospitalization under Dr. Michael Brewer. The patient was given one dose of intravenous furosemide for his acute heart failure. The patient underwent echocardiogram during hospitalization, which revealed preserved left ventricular ejection fraction of 60% to 65% with findings consistent with diastolic heart failure, specifically dilated left atrium and concentric left ventricular hypertrophy. The patient's hospitalization was unremarkable. The urologist, who performed cystoscopy and lithotripsy, was Dr. Giacomo Cabrera. In conclusion, the left ureteral stone at the ureterovesical junction was removed and the 6 mm calculus in the left lower pole was treated with lithotripsy. CONDITION ON DISCHARGE: Stable. DISCHARGE MEDICATIONS: 1. Talwin 1-2 tablets every 4 hours p.r.n. pain, 20 prescribed, no refills. 2. Keflex 500 mg b.i.d. for 7 days. 3. Amiodarone 200 mg daily. 4. Aspirin 81 mg daily. 5. Carvedilol 12.5 mg b.i.d. 6. Clopidogrel 75 mg daily. 7. Isosorbide mononitrate 60 mg daily. 8. Lisinopril 2.5 mg at bedtime. 9. Mexiletine 150 mg b.i.d. 10. Nitroglycerin 0.4 mg once every 5 minutes p.r.n. chest pain. 11. Pantoprazole 40 mg b.i.d. 12. Torsemide 20 mg daily. FOLLOWUP INSTRUCTIONS: The patient is instructed to follow up with Dr. Giacomo Cabrera, his urologist next Friday, January 11, 2019, for double-J stent removal. The patient to follow up with , his primary care physician within 2 weeks. MD MAGALY Ferguson/BROOKE /[id number] MTDD
== END 2019-01-06 10:57 | disposition home or self-care (01) ==
LOC: ER 20:45 → ERHOLD 01-04 02:02 → IMCU 01-04 12:14 → MED/SURG2 01-05 18:12
PROVIDERS: ADMIT Internal Medicine; ATTEND Internal Medicine
DX: N13.2 Hydronephrosis with renal and ureteral calculous obstruction (principal); N20.2 Calculus of kidney with calculus of ureter; I51.7 Cardiomegaly; E87.70 Fluid overload, unspecified; N17.9 Acute kidney failure, unspecified; I13.0 Hypertensive heart and chronic kidney disease with heart failure and stage 1 through stage 4 chronic kidney disease, or unspecified chronic kidney disease; I25.10 Atherosclerotic heart disease of native coronary artery without angina pectoris; E66.9 Obesity, unspecified; Z68.33 Body mass index [BMI] 33.0-33.9, adult; Z95.0 Presence of cardiac pacemaker; N18.1 Chronic kidney disease, stage 1; G47.33 Obstructive sleep apnea (adult) (pediatric); I25.9 Chronic ischemic heart disease, unspecified; I50.33 Acute on chronic diastolic (congestive) heart failure
CPT/HCPCS: 36415 ×3; 52352; 52356; 71045; 73090; 74176; 74420; 80048 ×2; 80053 ×2; 81001; 83880; 85025 ×4; 88300; 93005; 93306; 99285; C1766; C2625; G0378 ×3; J0690; J0696 ×3; J1100; J1170 ×3; J1200 ×2; J1940; J2001; J2405 ×2; J2704; J7030 ×2; J7050; Q9967; S0164 ×3

== ENCOUNTER 2019-01-07 03:41 | Observation (INO) | payer MEDICARE ==
[~2019-01-07] VITALS: Ht 182.9 cm; Wt 112.2 kg
[~2019-01-07 03:41] MED LIST changes: +KEFLEX500 MG PO; +PENTAZOCINE-NA1 EACH PO; +TALWIN30 MG/1 M1
--- NOTE | 2019-01-07 03:45 | NUR ---
DR MADRID PAGED PER ER REQUEST
[2019-01-07 04:16] LABS: BASOPHILS % 0.1 % (0.0-1.0); EOSINOPHILS # (AUTO) 0.1 (0.0-0.4); EOSINOPHILS % 1.5 % (0.0-6.0); HEMATOCRIT 40.1 % (38.2-49.6); HEMOGLOBIN 13.7 g/dL (14.0-18.0); LYMPHOCYTES # (AUTO) 1.2 (1.0-3.2); LYMPHOCYTES % 12.5 % (18.0-39.1); MEAN CORPUSCULAR HEMOGLOBIN 32.4 pg (28-32); MEAN CORPUSCULAR HGB CONC 34.2 g/dL (31-35); MEAN CORPUSCULAR VOLUME 94.8 fL (81-99); MONOCYTES # (AUTO) 0.8 (0.2-0.8); MONOCYTES % 8.1 % (4.4-11.3); NEUTROPHILS # (AUTO) 7.2 (2.1-6.9); NEUTROPHILS % 77.5 % (38.7-80.0); PLATELET COUNT 183 x10e3/uL (140-360); RED BLOOD COUNT 4.23 x10e6/uL (4.3-5.7); RED CELL DISTRIBUTION WIDTH 13.5 % (11.7-14.4)
[2019-01-07 04:21] LABS: BILIRUBIN,URINE NEGATIVE (NEGATIVE); CLARITY,URINE CLOUDY (CLEAR); COLOR,URINE RED (YELLOW); EPITHELIAL CELLS,URINE RARE /LPF; KETONES,URINE NEGATIVE (NEGATIVE); LEUKOCYTE ESTERASE ,URINE TRACE (NEGATIVE); NITRITE,URINE NEGATIVE (NEGATIVE); PROTEIN,URINE DIPSTICK 2+ (NEGATIVE); RBC,URINE 21-50 /HPF (0-5); URINE UROBILINOGEN 0.2 mg/dL (0.2 - 1); WBC,URINE (MAN) 0-5 /HPF (0-5)
[2019-01-07] MEDS: ONDANSETRON HCL INJ 2MG/ML 2ML 2 MG/ML VIAL IV PRN ×2 (04:23→08:29)
[2019-01-07] MEDS: MORPHINE SULFATE INJ 4 MG/ML INJ 1ML IV PRN ×2 (04:23→08:29)
[2019-01-07] MEDS ORDERED: TAMSULOSIN HCL0.4 MG PO (04:24)
[2019-01-07] MEDS ORDERED: HYDROCODON-ACE1 EA12 PO (04:24)
[2019-01-07 04:38] LABS: ALBUMIN 3.6 g/dL (3.5-5.0); CALCIUM 8.9 mg/dL (8.4-10.2); CREATININE, SERUM 1.79 mg/dL (0.72-1.25)
--- NOTE | 2019-01-07 05:00 | NUR ---
2ND CALL PLACED TO DR MADRID SERVICE. CONNECTED TO MD BY SERVICE AT THIS TIME. DR QUIÑONES SPOKE C MD AT THIS TIME.
--- NOTE | 2019-01-07 05:30 | NUR ---
pt pressed call moncada, requesting more pain medications, aware, inst to order ct abd/pelvis stone protocol, no new orders for pain medications.
--- NOTE | 2019-01-07 06:38 | Diagnostic Imaging Report ---
CT Abdomen and Pelvis without contrast INDICATION: Abdominal pain and left flank pain TECHNIQUE: Thin collimation axial images obtained from the diaphragm to the level of the pubic symphysis without nonionic intravenous contrast. Dose reduction techniques used: Automated exposure control, adjustment of the mAs and/or kVp according to patient size, standardized low-dose protocol, and/or iterative reconstruction technique. RADIATION DOSE: Total DLP: 875.8 mGy*cm Estimated effective dose: (DLP x 0.015 x size factor) mSv CTDIvol has been reviewed. It is below the limits set by the Radiation Protocol Committee (RPC). COMPARISON: CT abdomen/pelvis 01/04/2019. ABDOMEN FINDINGS: Lung Bases: Posterior layering right pleural effusion is stable. Posterior layering left pleural effusion has resolved. There is trace bibasilar atelectasis. Stable hyperinflation. Stable cardiomegaly and pacemaker wires. No pericardial effusion. Small hiatal hernia Liver: Normal in attenuation without mass. Gallbladder: Present and appears normal. No ductal dilatation. Pancreas: Normal attenuation without mass. Spleen: Normal size without mass. Adrenal Glands: No evidence for mass. Kidneys: Right: Punctate calculus in the interpolar region is stable. No collecting system dilatation. No hydronephrosis. Stable perinephric inflammation. Left: 6 mm calculus in the lower pole is no longer visible. However, there are tiny (1 to 3 mm) calcifications in the posterior collecting systems of the lower pole and interpolar region. Collecting system dilatation is redemonstrated. There is a new punctate foci of air in the upper pole. Interval placement of ureteral stent in the pelvis extending into the bladder. No calculus along the course of the stent. Diffuse renal edema is similar. No perinephric fluid collections. Lymph Nodes: No enlarged abdominal or retroperitoneal lymph nodes.. Aorta: Diffusely calcified but normal in diameter PELVIS FINDINGS: Bowel: Stomach: Normal in caliber with normal wall thickness. Small Bowel: Normal in caliber with normal wall thickness. Large Bowel: Diverticulosis coli. Mild to moderate burden of stool in the large bowel. No mural thickening or pericolonic inflammation. A tablet or calcification is in the mid transverse colon. Appendix: Not visualized. Bladder: Under distended and contains a small amount of intraluminal air. The calcification in the bladder is no longer visualized. The prostate gland is enlarged.. Ureters: The right ureter is normal in diameter throughout its course. The calculus in the distal left ureter is no longer visualized. Peritoneum/retroperitoneum: No free fluid or fluid collection.. Bones: Mild to moderate degenerative changes of the spine. No focal osseous lesions. Soft tissues: Fat-containing umbilical hernia has an aperture of 14 mm. IMPRESSION: 1. Interval placement of left ureteral stent. Persistent left hydronephrosis and renal edema. Calculus in the distal left ureter and bladder are no longer visualized. The 6 mm calculus in the lower pole is no longer visualized. Instead, there are several intrarenal calculi ranging between 1 and 3 mm. 2. Prostate hypertrophy. 3. No evidence for bowel obstruction or inflammation. Diverticulosis coli. Small hiatal hernia. 4. Stable right pleural effusion. Resolved left pleural effusion. Signed by: Dr. Taye Deleon MD on 01/07/2019 6:34 AM
--- NOTE | 2019-01-07 06:48 | NUR ---
report to bing walsh
--- NOTE | 2019-01-07 08:19 | NUR ---
pt urinated 325 cc bloody urine
--- NOTE | 2019-01-07 09:03 | NUR ---
pt urinated 200 cc dark red urine
[2019-01-07] MEDS: SODIUM CHLORIDE 0.9% 1000ML 1,000 ML IV SCH (09:22)
[2019-01-07] MEDS ORDERED: NITROGLYCERIN 0.4 MG SL PRN (09:30)
[2019-01-07] MEDS ORDERED: NITROGLYCERIN 0.4 MG SUBL SL PRN (09:45)
[2019-01-07] MEDS: CEFTRIAXONE SOD 1 GM/NS 50 ML 50 ML IV SCH (09:49)
[2019-01-07 11:48] VITALS: BP 169/72
--- NOTE | 2019-01-07 12:01 | NUR ---
Recvd patient from ER via wheelchair, AAOx3, assisted him to bed, denies any chest pain or SOB, Resp even and unlabored, call light in reach
[2019-01-07] MEDS ORDERED: DOCUSATE SODIUM 100 MG CAP PO PRN (12:30)
[2019-01-07 13:00] VITALS: BP 169/72
[2019-01-07] MEDS: HYDROMORPHONE 2MG/ML 2 MG/ML ML IV PRN (13:34)
[2019-01-07 15:40] VITALS: BP 195/89
[2019-01-07] MEDS: SOD PHOSPHATE/SOD BIPHOSPHATE ENEMA 132 ML BTL PR PRN ×2 (15:57→21:18)
--- NOTE | 2019-01-07 16:28 | History and Physical ---
CHIEF COMPLAINT: "I am hurting really bad and I am urinating blood." HISTORY OF PRESENT ILLNESS: This is an 78-year-old white man, who presents to [facility] with intense left flank pain radiating to his left lumbar abdominal area as well as gross hematuria. The patient states these symptoms began soon after he was discharged from [facility] yesterday, January 06, 2019. During his brief hospitalization, he underwent left laser lithotripsy and left ureteral stone removal. This was performed successfully by his urologist, Dr. Giacomo Cabrera. The patient was discharged home with aspirin, clopidogrel since he does have a history of coronary artery disease. The patient states since he arrived home, he began having intense left flank pain that radiated to his left lower quadrant abdominal area. He also complained of gross hematuria. In the emergency room, the patient was found to have a hemoglobin of 13.7 g/dL. The patient's white blood cell count was 9200 with 77% segmented neutrophils. Urinalysis revealed 21-50 red blood cells per high-power field, trace leukocytes, 4+ blood, 2+ protein. The urine was red. The patient was found to have BUN and creatinine of 37 and 1.79 respectively. The patient underwent a CT of the abdomen and pelvis without contrast in the emergency room that revealed interval placement of left ureteral stent as well as persistent left hydronephrosis and renal edema. Calculus in distal left ureter and bladder were no longer visualized. The 6 mm calculus in the left lower kidney pole also was not visualized. Otherwise, the CT of the abdomen and pelvis was unremarkable. The patient was admitted for further evaluation and treatment. REVIEW OF SYSTEMS: GENERAL: Weight has been stable. No fevers or chills. HEENT: No headaches. No vision changes. CARDIOVASCULAR/RESPIRATORY: No chest pain. No shortness of breath or cough. GI: Complains of nausea with the flank pain. No vomiting or diarrhea. : Complains of gross hematuria as well as intense left flank pain that radiates to his left lumbar abdominal area. NEUROMUSCULAR: The patient denies any limb weakness or numbness. ALLERGIES: NO KNOWN DRUG ALLERGIES. PAST MEDICAL HISTORY: 1. Ischemic heart disease. 2. Chronic diastolic congestive heart failure. 3. 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 4. Hypertensive heart disease. 5. Stage 3 chronic kidney disease. 6. Peripheral neuropathy. 7. Obstructive sleep apnea. 8. Mild obesity, BMI of 33. 9. History of kidney stones. 10. History of recurrent gout. PAST SURGICAL HISTORY: 1. Left ureteral stent placement and left-sided lithotripsy on January 05, 2019. 2. Coronary artery bypass grafting in November 2002. 3. Multiple coronary artery stent placement. 4. Pacemaker placement. 5. AICD placement. 6. Cardiac ablation for recurrent premature ventricular contractions in April 2013. 7. Appendectomy. 8. Left total knee replacement in 2016. SOCIAL HISTORY: He is , lives with his . 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 The patient quit smoking tobacco in 1977. No history of alcohol or illicit drug use. CURRENT MEDICATIONS: 1. Talwin 1-2 tablets every 4 hours p.r.n. pain. 2. Keflex 500 mg b.i.d. 3. Amiodarone 200 mg daily. 4. Aspirin 81 mg daily. 5. Carvedilol 12.5 mg b.i.d. 6. Clopidogrel 75 mg daily. 7. Isosorbide mononitrate 60 mg daily. 8. Lisinopril 2.5 mg at night. 9. Mexiletine 150 mg b.i.d. 10. Nitroglycerin 0.4 mg every 5 minutes p.r.n. chest pain. 11. Pantoprazole 40 mg b.i.d. 12. Torsemide 20 mg daily. PHYSICAL EXAMINATION: GENERAL: He is awake, alert. He is in obvious distress. He is pleasant and cooperative with exam. VITAL SIGNS: Blood pressure is 150/70, pulse 68, respiratory rate is 18, oxygen saturation 96% on room air, temperature 97.9. Height 6 feet 2 inches, weight is 260 pounds, BMI is 33. INTEGUMENT: Skin is warm and dry. No pallor, jaundice, or diaphoresis. HEENT: Anterior sclerae. Moist mucous membranes. NECK: Supple. No evidence of jugular venous distention. CARDIOVASCULAR: Distant heart sounds. Regular rate and rhythm. No S3 gallop. LUNGS: No rales. No rhonchi. No wheezes. ABDOMEN: Obese, benign. SPINE/TORSO: The patient has exquisite left flank tenderness that radiates to his left lumbar abdominal area. EXTREMITIES: No edema or deformity. NEUROLOGIC: Intact. DIAGNOSES: 1. Gross hematuria. 2. Recent left ureteral stent placement with left ureteral stone removal and left renal laser lithotripsy. 3. Chronic diastolic congestive heart failure. 4. Acute on chronic renal failure. 5. Hypertensive heart disease. 6. Coronary artery disease (coronary artery bypass grafting in 2002). PLAN: 1. We will hold clopidogrel and aspirin. 2. Intravenous fluids. 3. Pain control. 4. Start intravenous ceftriaxone. 5. We will consult Urology. 6. Continue congestive heart failure medical management. I spent an hour in the care of this patient. MD MAGALY Ferguson/BROOKE /[id number] MTDD
[2019-01-07] MEDS: NON-FORMULARY MEDICATION (Mexiletine Hcl 150 MG) PO SCH (17:00)
[2019-01-07] MEDS: CARVEDILOL 12.5 MG TAB PO SCH (17:12)
--- NOTE | 2019-01-07 17:15 | NUR ---
Rechecked BP manually 155/80, will give BP medication and recheck BP
[2019-01-07 17:18] VITALS: BP 155/80
--- NOTE | 2019-01-07 17:24 | Consultation ---
DATE OF CONSULTATION: 01/07/2019 REASON FOR CONSULTATION: Left flank pain and gross hematuria. HISTORY OF PRESENT ILLNESS: This is an 78-year-old male, who was discharged from the hospital after a ureteroscopy. He had been admitted, was found to have fluid retention, had to be given Lasix prior to ureteroscopy. The patient underwent ureteroscopy for a distal left ureteral calculus and for a left renal calculus. These 2 stones were treated and removed. The patient was sent home with a double-J in place and continuation of his Plavix and aspirin. Unfortunately within 24 hours, the patient started to bleed a little bit more, developed some clots, developed increased pain, and upon calling me regarding this condition, I asked him to come back to the hospital. At this point, the patient is admitted as an IV at 75 mL/hour. We have stopped his Plavix and aspirin. I have discussed with the patient that usually if this happens, I will stop the Plavix and aspirin for approximately 10 days and then restart at half the dose particularly in him since he is a high-risk patient for cardiac issues. He has had stents and open-heart surgery and has had history of congestive heart failure as well. We discussed the possibility of clots even with his granddaughter present and we agree that the best line of treatment now is to stop the anticoagulation, let the urine stabilize, let the clots pass, and then we will remove the double-J. This will require between 3 to 4 days usually, no longer than that, but we will continue to evaluate the patient on a daily basis. I will also give him a low-dose antibiotic daily since he has an indwelling double-J with the string. Giacomo Cabrera MD RRG/MODL /[id number] cc: Nitin Matthew MD
--- NOTE | 2019-01-07 19:00 | NUR ---
received report from day nurse. patient is resting comfortably in bed. bed is in lowest position and call light is within reach. will continue to monitor patient.
--- NOTE | 2019-01-07 19:39 | NUR ---
PATIENTS BLOOD PRESSURE IS 198/81. PAGED. AWAITING CALL BACK FROM PHYSICIAN. WILL CONTINUE TO MONITOR PATIENT'S BLOOD PRESSURE.
[2019-01-07 19:47] VITALS: BP 198/81
[2019-01-07 20:00] VITALS: BP 198/81
--- NOTE | 2019-01-07 21:00 | NUR ---
paged answering service again and spoke with oncall physician. received new order for blood pressure medications.
--- NOTE | 2019-01-07 21:17 | NUR ---
patient is requesting for another enema as ordered by physician. will give patient enema per physicians orders.
--- NOTE | 2019-01-07 21:40 | NUR ---
patient has had a small bowel movement. will continue to monitor for bowel movements.
[2019-01-07] MEDS: LISINOPRIL 20 MG TAB PO SCH (21:53)
--- NOTE | 2019-01-07 21:54 | NUR ---
patient has been given the first dose of lisinopril 20mg per physician orders. will continue to monitor patient's blood pressure.
[2019-01-08] VITALS (8 sets, daily range): BP systolic 117–195; BP diastolic 54–91
[2019-01-08] MEDS: HYDRALAZINE HCL 20 MG/ML VIAL IV PRN ×2 (00:05→05:40)
--- NOTE | 2019-01-08 04:00 | NUR ---
patient's blood pressure is still elevated. will medicate patient with as needed blood pressure medication per physicians orders. will continue to monitor patient.
[2019-01-08 06:03] LABS: BASOPHILS % 0.5 % (0.0-1.0); EOSINOPHILS # (AUTO) 0.3 (0.0-0.4); EOSINOPHILS % 4.1 % (0.0-6.0); HEMATOCRIT 38.5 % (38.2-49.6); HEMOGLOBIN 12.9 g/dL (14.0-18.0); LYMPHOCYTES % 16.2 % (18.0-39.1); MEAN CORPUSCULAR HEMOGLOBIN 32.4 pg (28-32); MEAN CORPUSCULAR HGB CONC 33.5 g/dL (31-35); MEAN CORPUSCULAR VOLUME 96.7 fL (81-99); MONOCYTES # (AUTO) 0.5 (0.2-0.8); MONOCYTES % 7.2 % (4.4-11.3); NEUTROPHILS # (AUTO) 4.6 (2.1-6.9); NEUTROPHILS % 71.5 % (38.7-80.0); PLATELET COUNT 145 x10e3/uL (140-360); RED BLOOD COUNT 3.98 x10e6/uL (4.3-5.7); RED CELL DISTRIBUTION WIDTH 13.6 % (11.7-14.4)
[2019-01-08 06:24] LABS: ANION GAP 11.9 mmol/L (8-16); CALCIUM 8.6 mg/dL (8.4-10.2); CREATININE, SERUM 1.24 mg/dL (0.72-1.25); POTASSIUM 3.9 mmol/L (3.5-5.1)
--- NOTE | 2019-01-08 06:28 | NUR ---
patient's blood pressure has been reassessed and found to be 187/81. patient is lying in bed. no signs of distress noted. will continue to monitor patients blood pressure.
--- NOTE | 2019-01-08 07:08 | NUR ---
report given to day nurse. patient is resting in bed. bed is in lowest position and call moncada is within reach. will continue to monitor patient.
--- NOTE | 2019-01-08 07:15 | NUR ---
patient resting in bed, Alert with no distress, call light in reach
[2019-01-08] MEDS: CARVEDILOL 12.5 MG TAB PO SCH ×2 (08:27→16:50)
[2019-01-08] MEDS: AMIODARONE HCL 200 MG TAB PO SCH (08:27)
[2019-01-08] MEDS: ISOSORBIDE MONONITRATE 30 MG TAB CR PO SCH (08:27)
[2019-01-08] MEDS: NON-FORMULARY MEDICATION (Mexiletine Hcl 150 MG) PO SCH ×2 (08:27→17:00)
[2019-01-08] MEDS: LISINOPRIL 20 MG TAB PO SCH (08:28)
[2019-01-08] MEDS: PANTOPRAZOLE SOD 40 MG TABEC PO SCH (08:28)
[2019-01-08] MEDS: CEFTRIAXONE SOD 1 GM/NS 50 ML 50 ML IV SCH (08:54)
[2019-01-08] MEDS: HYDROMORPHONE 2MG/ML 2 MG/ML ML IV PRN (08:58)
--- NOTE | 2019-01-08 08:59 | NUR ---
patient c/o lower abdominal pain radiating to epigastric area, denies any SOB, medicated with prn pain medicine, keep monitoring
[2019-01-08] MEDS ORDERED: NON-FORMULARY MEDICATION (Isosorbide Mononitrate (Isosorbide Mononitrate Er) 60 MG) PO SCH (09:00)
[2019-01-08 14:16] LABS: BASOPHILS % 0.7 % (0.0-1.0); EOSINOPHILS # (AUTO) 0.3 (0.0-0.4); EOSINOPHILS % 4.2 % (0.0-6.0); HEMATOCRIT 35.6 % (38.2-49.6); HEMOGLOBIN 12.1 g/dL (14.0-18.0); LYMPHOCYTES # (AUTO) 0.9 (1.0-3.2); LYMPHOCYTES % 14.9 % (18.0-39.1); MEAN CORPUSCULAR HEMOGLOBIN 33.3 pg (28-32); MEAN CORPUSCULAR VOLUME 98.1 fL (81-99); MONOCYTES # (AUTO) 0.5 (0.2-0.8); MONOCYTES % 8.8 % (4.4-11.3); NEUTROPHILS # (AUTO) 4.3 (2.1-6.9); NEUTROPHILS % 70.9 % (38.7-80.0); PLATELET COUNT 161 x10e3/uL (140-360); RED BLOOD COUNT 3.63 x10e6/uL (4.3-5.7); RED CELL DISTRIBUTION WIDTH 13.6 % (11.7-14.4)
--- NOTE | 2019-01-08 15:56 | NUR ---
Patient c/o mild chest pain anterior chest now, Dr Chanel here for rounds, new orders recvd.
[2019-01-08] MEDS ORDERED: ASPIRIN 81 MG CHEW TAB PO ONE ×3 (16:00→18:15)
--- NOTE | 2019-01-08 16:53 | Progress Note ---
DATE: 01/08/2019 Internal Medicine Progress Note SUBJECTIVE: The patient hematuria. He was seen by Dr. Giacomo Cabrera, Urology. OBJECTIVE: HEART: Showed regular rhythm. No murmur or added sound. LUNGS: Clear bilaterally. ABDOMEN: Soft. EXTREMITIES: Showed no evidence of cyanosis or hematoma. LABORATORY STUDIES: CBC; white blood cell count 3.12, hemoglobin 12.1, hematocrit 35.6, and platelet count 151,000. BMP; sodium 143, potassium 3.9, chloride 108, CO2 27, BUN 25, creatinine 1.24, glucose 98, AST 13, ALT 9, alkaline phosphatase 100, total protein 7.3, albumin 3.6, and albumin globulin ratio 1.0. He had a CT of the abdomen and pelvis done, which showed interval placement of left ureteral stent, persistently hydronephrosis and renal edema. Calculus in the distal left ureter and bladder no longer visualized. The 6 mm calculus in the lower pole is no longer visualized. He states there are several intrarenal calculi ranging from 1-3 mm. Prostatic hypertrophy. No evidence of bowel obstruction, inflammation, diverticulosis coli, small hiatal hernia. Stable right pleural effusion, trace left pleural effusion. FINAL IMPRESSION: 1. Hematuria. 2. Kvxbm-fy-jkttjbr renal failure. 3. Hypertension with chronic renal failure. 4. Chronic diastolic congestive heart failure. PLAN OF TREATMENT: Continue ceftriaxone 2 g IV once a day, normal saline at 100 mL an hour, Zofran 4 mg IV q.4 hours as needed, amiodarone 200 mg daily, isosorbide mononitrate 60 mg daily. Continue carvedilol 12.5 mg twice a day. Continue lisinopril 20 mg daily, IV q.3 hours as needed for severe pain, nitroglycerin 0.4 mg q.5 00minutes p.r.n. for chest pain, hydralazine 10 mg q.4 hours, Protonix 40 mg daily, Colace 100 mg daily. He had an episode of chest pain also, which is completely resolved. We are going to get a Cardiology consult with Dr. Mccann. MD STEPHANIE Castrejon/MODL /[id number]
--- NOTE | 2019-01-08 17:28 | Progress Note ---
DATE: 01/08/2019 SUBJECTIVE: Today, the patient is doing well. His blood pressure is finally under control. His pain is much better. He has been urinating freer and his urine is starting to lighten up. He had expressed a complaint of having some pain across his chest when he got some antibiotics. I told him that we would try again the second dose to see if indeed this is the problem or not. Otherwise, the patient has been tolerating his diet well. He is afebrile. He has not had a bowel movement. I will wait until tomorrow again and see if we need to give him some more enemas. We have given him 2 enemas and these were not successful according to the patient. PLAN: Continue with IV antibiotics. Continue present course of treatment. His urine is clearing up. I have withheld his Plavix and aspirin. We will continue to do so. So far, he has not had any untoward effect on this with his heart. Giacomo Cabrera MD RRG/MODL /[id number] cc: Giacomo Cabrera MD
[2019-01-08] MEDS: SODIUM CHLORIDE 0.9% 1000ML 1,000 ML IV SCH (18:35)
--- NOTE | 2019-01-08 19:00 | NUR ---
received report from day nurse. patient is resting comfortably in bed. bed is in lowest position and call moncada is within reach. will continue to monitor patient.
--- NOTE | 2019-01-08 21:13 | NUR ---
Cardiology Consult Dictation# [id number]
--- NOTE | 2019-01-08 22:38 | NUR ---
Patient's IV is leaking around the insertion site. 18gauge IV has been discontinued. 20 gauge IV has been started in patients left hand. IV is patent and patient tolerated procedure well. will continue to monitor patient.
[2019-01-09] VITALS (8 sets, daily range): BP systolic 127–176; BP diastolic 59–78
[2019-01-09 00:40] LABS: CREATINE KINASE MB 1.1 ng/mL (0-5.0)
[2019-01-09] MEDS: SODIUM CHLORIDE 0.9% 1000ML 1,000 ML IV SCH (01:15)
--- NOTE | 2019-01-09 04:36 | Consultation ---
DATE OF CONSULTATION: 01/08/2019 Cardiology Consultation Note REQUESTING PHYSICIAN: Bry Pena MD REASON FOR CONSULTATION: Chest pain. HISTORY OF PRESENT ILLNESS: An 78-year-old man with history of coronary artery disease, status post CABG and stent, ischemic cardiomyopathy and chronic systolic heart failure, frequent PVCs, status post PVC ablation and a permanent pacemaker, hypertension, and chronic kidney disease, who presented with flank pain. The patient had just been discharged from [facility] after being admitted with an obstructing left-sided ureteral stone. The patient underwent cystoscopy with left laser lithotripsy and ureteral stone removal. He was subsequently discharged home. However, after discharge, the patient had worsening of his flank pain with gross hematuria. He subsequently returned to the [facility] for further evaluation. On evaluation in the ER, he was found to have acute kidney injury with creatinine of 1.79. CT of the abdomen and pelvis without contrast demonstrated persistent left hydronephrosis and renal edema. The patient was subsequently admitted for further evaluation. Due to patient's gross hematuria, the patient's aspirin and Plavix were discontinued. The patient was admitted for further evaluation. The patient complained of chest pain this morning, which he described as a strap high across his chest, it was 6 to 7/10 in severity and lasted approximately 15-20 minutes before it was relieved with IV Dilaudid. The pain was associated with shortness of breath, but no nausea, diaphoresis, or radiation. However, he does state that the pain is different from his usual chest pain. Cardiology was therefore consulted for evaluation. REVIEW OF SYSTEMS: Negative as per HPI. PAST MEDICAL HISTORY: 1. Coronary artery disease, status post CABG with patent DOMINGO to LAD, SVG to D1 and SVG to OM with known occlusion of the proximal LAD and circumflex and patent stents with nonobstructive disease in the RCA on 09/2016, and recent nuclear stress test at the office without evidence of ischemia, April 2018. 2. Ischemic cardiomyopathy. 3. Chronic systolic heart failure. 4. Frequent PVCs, status post PVC ablation. 5. Permanent pacemaker. 6. Hypertension. 7. Chronic kidney disease. 8. Obesity, PHIL. PAST SURGICAL HISTORY: 1. CABG, 3-vessel in 2002. 2. Appendectomy. SOCIAL HISTORY: Prior tobacco. No alcohol or illicit drugs. FAMILY HISTORY: Noncontributory. ALLERGIES: NO KNOWN DRUG ALLERGIES. MEDICATIONS: Please see EMR. PHYSICAL EXAMINATION: VITAL SIGNS: Temperature 96.9 degrees, pulse 65, respiratory rate 18, blood pressure 117/54, and oxygen sat 97% on room air. GENERAL: Well-developed and well-nourished man, in no acute distress. Awake and alert. HEENT: Normocephalic and atraumatic. Pupils are equal. No scleral icterus. NECK: Supple. No thyromegaly or cervical lymphadenopathy. No carotid bruits. LUNGS: Clear to auscultation bilaterally. No wheezes or crackles. CARDIOVASCULAR: Normal rate, regular rhythm. No murmur. Normal S1 and S2. ABDOMEN: Soft and nontender. EXTREMITIES: No edema. NEUROLOGIC: Nonfocal exam. LABORATORY DATA: WBC 6.1, hemoglobin 12.1, hematocrit 35.6, and platelets 161. Sodium 142, potassium 3.9, chloride 108, CO2 is 27, BUN 25, and creatinine 1.24. Troponin 0.04. IMPRESSION: 1. Chest pain. 2. Gross hematuria. 3. Acute kidney injury, improving. 4. Hydronephrosis. 5. Coronary artery disease, status post 3-vessel CABG in 2002 with patent grafts and nonobstructive disease, on last cardiac catheterization in 2015. 6. Ischemic cardiomyopathy. 7. Chronic systolic heart failure. 8. Status post permanent pacemaker. 9. Frequent PVCs, status post PVC ablation. 10. Hypertension. 11. Hyperlipidemia. RECOMMENDATIONS: Trend cardiac biomarkers to rule out myocardial infarction. Given gross hematuria and the fact that the patient has no recent stent, continue to hold aspirin and Plavix. Monitor the patient on telemetry. Continue the patient's home cardiac medications. Obtain EKG. Management of the patient's hematuria per Urology. Thank you for this consult. We will continue to follow. Latrice Chanel MD ABS/MODL /[id number]
[2019-01-09 06:34] LABS: CREATINE KINASE MB 0.9 ng/mL (0-5.0)
[2019-01-09] MEDS: HYDRALAZINE HCL 20 MG/ML VIAL IV PRN ×2 (06:41→15:44)
--- NOTE | 2019-01-09 06:41 | NUR ---
patient's blood pressure is 180/81. patient will be medicated with prn blood pressure medication. will continue to monitor patient's blood pressure.
--- NOTE | 2019-01-09 06:55 | NUR ---
report given to day nurse. patient is resting comfortably in bed. bed is in lowest position and call moncada is within reach.
[2019-01-09] MEDS: NON-FORMULARY MEDICATION (Mexiletine Hcl 150 MG) PO SCH ×2 (08:46→17:00)
[2019-01-09] MEDS: AMIODARONE HCL 200 MG TAB PO SCH (08:46)
[2019-01-09] MEDS: LISINOPRIL 20 MG TAB PO SCH (08:47)
[2019-01-09] MEDS: CEFTRIAXONE SOD 1 GM/NS 50 ML 50 ML IV SCH (08:47)
[2019-01-09] MEDS: CARVEDILOL 12.5 MG TAB PO SCH ×2 (08:47→18:10)
[2019-01-09] MEDS: PANTOPRAZOLE SOD 40 MG TABEC PO SCH (08:47)
[2019-01-09] MEDS: ISOSORBIDE MONONITRATE 30 MG TAB CR PO SCH (08:47)
--- NOTE | 2019-01-09 10:57 | Progress Note ---
DATE: 01/09/2019 Today, the patient is afebrile and he has not had any more chest pains. He had a bowel movement and he is urinating well at the present time. His urine color now is [place], no clots and he has no problems urinating. Currently, the plan is to continue IV antibiotics. We will evaluate tomorrow for removal of his double-J at bedside and we will continue to observe. MD AMAYA Love/MODL /[id number]
[2019-01-09 11:25] LABS: BASOPHILS % 0.3 % (0.0-1.0); EOSINOPHILS # (AUTO) 0.2 (0.0-0.4); EOSINOPHILS % 3.7 % (0.0-6.0); HEMOGLOBIN 11.5 g/dL (14.0-18.0); LYMPHOCYTES # (AUTO) 0.9 (1.0-3.2); LYMPHOCYTES % 14.6 % (18.0-39.1); MEAN CORPUSCULAR HEMOGLOBIN 32.8 pg (28-32); MEAN CORPUSCULAR HGB CONC 32.9 g/dL (31-35); MEAN CORPUSCULAR VOLUME 99.7 fL (81-99); MONOCYTES # (AUTO) 0.5 (0.2-0.8); MONOCYTES % 7.7 % (4.4-11.3); NEUTROPHILS # (AUTO) 4.4 (2.1-6.9); NEUTROPHILS % 73.4 % (38.7-80.0); PLATELET COUNT 146 x10e3/uL (140-360); RED BLOOD COUNT 3.51 x10e6/uL (4.3-5.7); RED CELL DISTRIBUTION WIDTH 13.6 % (11.7-14.4)
[2019-01-09] MEDS ORDERED: CLONIDINE HCL 0.1 MG TAB PO PRN (12:00)
--- NOTE | 2019-01-09 12:09 | NUR ---
Met with Dr. Pena to discuss plan of care. He stated Dr. Cabrera will remove the stent tomorrow and pt should discharge after that if there are no complications.
--- NOTE | 2019-01-09 13:03 | Progress Note ---
DATE: 01/09/2019 Internal Medicine Progress Note SUBJECTIVE: The patient is doing well today. Hematuria is slowly resolving. OBJECTIVE: VITAL SIGNS: Blood pressure 174/76, temperature 98.1, heart rate 67 per minute, respiratory rate 16 per minute, oxygen saturation 95%. HEART: Showed regular rhythm. No murmur or added sound. LUNGS: Clear bilaterally. ABDOMEN: Soft and nontender. No distention. LABORATORY DATA: On BMP; sodium 143, potassium 3.9, chloride 108, CO2 27, BUN 25, creatinine 1.24, glucose 98. On CBC, white count 6.12, hemoglobin 12.1, hematocrit 35.6, platelet count of 161,000. AST 13, ALT 9, total bilirubin 0.4, alkaline phosphatase 100. FINAL IMPRESSION: 1. Hematuria. 2. Gljxb-fz-arhglam renal failure. 3. Hypertension with hypertensive nephropathy. 4. Chronic diastolic congestive heart failure. 5. Chest pain. 6. Hypertension with hypertensive heart disease. Dr. Matthew would resume the care tomorrow. Dr. Giacomo Cabrera, Urology, is going to remove the stent tomorrow. MD STEPHANIE Castrejon/BROOKE /[id number]
--- NOTE | 2019-01-09 14:12 | NUR ---
patient resting in bed, talking to visitors, denies any chest pain, no distress noted
--- NOTE | 2019-01-09 15:49 | NUR ---
Nutrition Screen Note RD Recommendation for Physician: Continue diet as ordered Plan of Care: RD following, monitoring for adequacy and tolerance Nutrition reason for involvement: Nutrition Risk Trigger - MST Primary Diagnose(s):kidney stones Ht:72 in Wt:247.25lbs BMI: kg/m2 IBW:33.5lbs RD Assessment:(01/09/2019) Initial encounter with patient. Pt denies any N,V, D, nor has any difficulty chewing or swallowing. Pt states that he has lost some wt due to the kidney stones. Current Diet:Cardiac diet Malnutrition Evaluation (01/09/2019) The patient does not meet criteria for a specified degree of malnutrition at this time. Will re-evaluate at follow-up as appropriate. Diet Education Needs Assessment: Diet education not indicated. Diet Adequacy: Meeting calorie needs, Meeting protein needs, Meeting fluid needs Tolerance: Tolerating PO Nutrition Care Level:Quentin Weber RD, LD, CNSC
--- NOTE | 2019-01-09 18:25 | NUR ---
patient resting in bed, alert with no distress, call light in reach
--- NOTE | 2019-01-09 19:00 | NUR ---
received report from day nurse. patient is resting in bed. bed is in lowest position and call moncada is within reach. will continue to monitor patient.
--- NOTE | 2019-01-09 19:34 | Progress Note ---
DATE: 01/09/2019 Cardiology Progress Note SUBJECTIVE: The patient denies chest pain or shortness of breath. OBJECTIVE: VITAL SIGNS: Temperature 97.5 degrees, pulse 65, respiratory rate 14, blood pressure 127/59, and oxygen saturation 95% on room air. GENERAL: Well-developed, well-nourished man, in no acute distress. Awake and alert. LUNGS: Clear to auscultation bilaterally. No wheezes or crackles. CARDIOVASCULAR: Normal rate, regular rhythm. No murmur. Normal S1 and S2. ABDOMEN: Soft, nontender. EXTREMITIES: No edema. CARDIAC MEDICATIONS: 1. Isosorbide mononitrate 60 mg p.o. daily. 2. Carvedilol 12.5 mg p.o. b.i.d. 3. Amiodarone 200 mg p.o. daily. 4. Lisinopril 30 mg p.o. daily. LABORATORY DATA: WBC 5.94, hemoglobin 11.5, hematocrit 35, and platelets 146. Sodium 143, potassium 3.9, chloride 108, CO2 of 27, BUN 25, and creatinine 1.24. Troponin 0.046. Telemetry, A-paced. IMPRESSION: 1. Chest pain. 2. Gross hematuria. 3. Acute kidney injury, improved. 4. Hydronephrosis. 5. Coronary artery disease, status post three vessel coronary artery bypass graft in 2002 with patent grafts and nonobstructive disease on last cardiac catheterization in 2015. 6. Ischemic cardiomyopathy. 7. Chronic systolic heart failure. 8. Status post permanent pacemaker. 9. Frequent premature ventricular contractions, status post ablation. 10. Hypertension. 11. Hyperlipidemia. RECOMMENDATIONS: No evidence of myocardial infarction on serial cardiac biomarkers. As the patient has no recent stent and cardiac biomarkers have been negative, we will continue to hold aspirin and Plavix due to the patient's gross hematuria. Monitor the patient on telemetry. Increase lisinopril due to uncontrolled hypertension. Continue current cardiac medications otherwise. Management of the patient's hematuria per Urology. Thank you for this consult. We will continue to follow. Latrice Chanel MD ABS/MODL /[id number]
[2019-01-10] VITALS (7 sets, daily range): BP systolic 132–201; BP diastolic 60–89
[2019-01-10] MEDS: SODIUM CHLORIDE 0.9% 1000ML 1,000 ML IV SCH (04:30)
[2019-01-10 05:04] LABS: BASOPHILS % 0.4 % (0.0-1.0); EOSINOPHILS # (AUTO) 0.2 (0.0-0.4); HEMATOCRIT 36.7 % (38.2-49.6); HEMOGLOBIN 12.1 g/dL (14.0-18.0); LYMPHOCYTES # (AUTO) 0.9 (1.0-3.2); LYMPHOCYTES % 12.9 % (18.0-39.1); MEAN CORPUSCULAR VOLUME 97.1 fL (81-99); MONOCYTES # (AUTO) 0.5 (0.2-0.8); NEUTROPHILS # (AUTO) 5.3 (2.1-6.9); NEUTROPHILS % 76.3 % (38.7-80.0); PLATELET COUNT 147 x10e3/uL (140-360); RED BLOOD COUNT 3.78 x10e6/uL (4.3-5.7); RED CELL DISTRIBUTION WIDTH 13.6 % (11.7-14.4)
[2019-01-10 05:40] LABS: ALANINE AMINOTRANSFERASE 10 IU/L (0-55); ALBUMIN 3.1 g/dL (3.5-5.0); ALKALINE PHOSPHATASE 83 IU/L (40-150); ANION GAP 10.7 mmol/L (8-16); BLOOD UREA NITROGEN 18 mg/dL (7-26); BUN/CREATININE RATIO 17 (6-25); CALCIUM 8.8 mg/dL (8.4-10.2); CARBON DIOXIDE 25 mmol/L (22-29); CHLORIDE 108 mmol/L (98-107); CREATININE, SERUM 1.08 mg/dL (0.72-1.25); EST GLOMERULAR FILTRATION RATE > 60 ML/MIN (60-); GLUCOSE 102 mg/dL (74-118); POTASSIUM 3.7 mmol/L (3.5-5.1); SODIUM 140 mmol/L (136-145)
--- NOTE | 2019-01-10 06:21 | Diagnostic Imaging Report ---
EXAMINATION: CHEST SINGLE (PORTABLE) COMPARISON: Chest x-ray 01/04/2019 INDICATION: ^CHF ^[id number] ^0002 ^Y DISCUSSION: Frontal view of the chest obtained at 0600 hours. HEART AND MEDIASTINUM: Stable cardiomegaly and aortic ectasia. LINES: Pacemaker wires remain in the right atrium and right ventricle. LUNGS: The lungs are well-inflated. Central pulmonary vasculature is prominent. Diffuse bronchial wall thickening is redemonstrated. No interstitial thickening. No consolidation. PLEURA: No pleural effusion or pneumothorax. BONES AND SOFT TISSUES: No focal osseous lesion. The soft tissues are normal. IMPRESSION: Diffuse bronchial wall thickening suggestive of bronchitis. No pulmonary infiltrates. Cardiomegaly and central vascular congestion. No interstitial edema. Signed by: Dr. Taye Deleon MD on 01/10/2019 6:18 AM
--- NOTE | 2019-01-10 07:11 | NUR ---
report given to day nurse. patient is resting comfortably in bed. bed is in lowest position and call moncada is within reach.
[2019-01-10] MEDS: CEFTRIAXONE SOD 1 GM/NS 50 ML 50 ML IV SCH (07:49)
[2019-01-10] MEDS: ISOSORBIDE MONONITRATE 30 MG TAB CR PO SCH (07:50)
[2019-01-10] MEDS: PANTOPRAZOLE SOD 40 MG TABEC PO SCH (07:50)
[2019-01-10] MEDS: AMIODARONE HCL 200 MG TAB PO SCH (07:50)
[2019-01-10] MEDS: CARVEDILOL 12.5 MG TAB PO SCH (07:50)
[2019-01-10] MEDS: NON-FORMULARY MEDICATION (Mexiletine Hcl 150 MG) PO SCH (07:51)
[2019-01-10] MEDS ORDERED: LISINOPRIL 20 MG TAB PO SCH ×2 (09:00)
--- NOTE | 2019-01-10 09:30 | NUR ---
bp retaken from this morning. now reads 145/62 with hr of 65. pt is resting in bed comfortably. will continue care
--- NOTE | 2019-01-10 09:45 | NUR ---
paged md blackmon regarding clarification of stent removal, pending dc upon answer. awaiting for call back
--- NOTE | 2019-01-10 11:21 | NUR ---
MD YU ROUNDED AND REMOVED STENT AT BEDSIDE. IS OK WITH MD CRESPO. WANT PT TO FOLLOW UP ON Thu, HOLD OFF ON ANTICOAGULANTS FOR NOW UNTIL FOLLOW UP VISIT WILL CALL MD MADRID NOW FOR ORDERS ON DC .
--- NOTE | 2019-01-10 11:26 | NUR ---
PAGED MD MADRID FOR ORDERS ON DC. AWAITING FOR CALL BACK
--- NOTE | 2019-01-10 12:39 | Progress Note ---
DATE: 01/10/2019 Today, the patient is afebrile, has been urinating, his urine is grossly clear. He also states that he has not had any pain significant to use Dilaudid since Thursday. Today, I removed his double-J at bedside by pulling on the string. I observed that the entire double-J was removed and this was discarded as well. RECOMMENDATION: I communicated with Dr. Matthew that the patient can be discharged today. I will see him in the office again on Thursday and we will determine the anticoagulants that I will start first and at what dose. MD GLORIA LoveG/MODL /[id number]
--- NOTE | 2019-01-10 12:39 | Progress Note ---
DATE: 01/10/2019 Cardiology Progress Note SUBJECTIVE: The patient found sleeping comfortably. No acute events. No complaints. OBJECTIVE: VITAL SIGNS: Temperature is 97.3, heart rate is 65, blood pressure is 145/62, and oxygen saturation 95% on room air. GENERAL: He is well appearing, in no apparent distress, alert and oriented x3. LUNGS: Clear to auscultation. ABDOMEN: Soft, nontender. EXTREMITIES: No edema. CARDIOVASCULAR: Regular rate and rhythm. No murmurs. CARDIOVASCULAR MEDICATIONS: Reviewed. LABS AND IMAGING: Laboratory values were reviewed. Hemoglobin 12.1. Creatinine is 1.08. Troponins negative x3. Chest x-ray shows diffuse bronchial wall thickening suggestive of bronchitis, no pulmonary infiltrates, cardiomegaly and central vascular congestion, no interstitial edema. Telemetry monitoring revealed atrial paced rhythm. IMPRESSION: 1. Precordial pain. 2. Gross hematuria. 3. Acute kidney injury, improved. 4. Hydronephrosis. 5. Coronary artery disease status post coronary artery bypass graft surgery and percutaneous coronary intervention. 6. Chronic systolic congestive heart failure. 7. Permanent pacemaker implantation. 8. Premature ventricular complexes status post ablation. RECOMMENDATIONS: He is currently stable from a cardiovascular standpoint. Continue holding aspirin and Plavix due to the gross hematuria. The patient has atrial paced rhythm on telemetry. His blood pressure has improved after increasing lisinopril. Continue titration of all other p.o. medications. Continue the hematuria treatment and evaluation per Urology and primary team. Warren Jack DO BM/MODL /[id number]
--- NOTE | 2019-01-10 12:40 | NUR ---
discharge instructions and prescriptions given . pt verbalized understanding. iv dc pressure dressing applied and taped.
--- NOTE | 2019-01-10 13:00 | NUR ---
pt off unit via wheel chair to home
--- NOTE | 2019-01-11 07:55 | NUR ---
Dictated DC summary: [id number]
--- NOTE | 2019-01-12 08:59 | Discharge Summary ---
ADMITTING DIAGNOSES: 1. Gross hematuria. 2. Recent left ureteral stent placement with left ureteral stone removal, left renal laser lithotripsy. 3. Chronic diastolic congestive heart failure. 4. Kqrlh-bm-bhfzuys renal failure. 5. Hypertensive heart disease. 6. Coronary artery disease (coronary artery bypass grafting in 2002). DISCHARGE DIAGNOSES: 1. Gross hematuria, resolved. 2. Flfax-cu-jlpdknt renal failure, resolved. 3. Recent left ureteral stent placement with left ureteral stone removal and left renal laser lithotripsy. 4. Chronic diastolic congestive heart failure. 5. Hypertensive heart disease. 6. Coronary artery disease. 7. Left-sided ureteral double-J stent removal. HOSPITAL COURSE: This is an 78-year-old white man, who has a history of recurrent kidney stones. The patient had undergone a urologic procedure on January 05, 2019, specifically left ureteral stone retraction with left ureteral stent placement and left renal laser lithotripsy. The patient tolerated the procedure quite well. The patient was actually sent home on January 06, 2019. The patient returned on the body welder hours of January 07, 2019, because he was experiencing intense left flank and left lower quadrant abdominal pain as well as gross hematuria. The patient had apparently restarted aspirin and clopidogrel therapy. Also, the patient was diagnosed with acute on chronic renal failure. On admission, the patient's BUN and creatinine was 37 and 1.79 respectively. During this hospitalization, he was started on intravenous fluids as well as intravenous ceftriaxone. The patient was seen by his urologist, namely Dr. Giacomo Cabrera. The patient was also seen by his crop consultant, namely Dr. Warren Jack during this hospitalization for his congestive heart failure and coronary artery disease. The patient underwent a repeat CT of the abdomen and pelvis during this hospitalization that revealed interval placement of a left ureteral stent as well as persistent left hydronephrosis and renal edema. The radiologist stated that the calculus in the distal left ureter and bladder were no longer visualized. The patient's renal function improved dramatically during this hospitalization with intravenous fluids. On day of discharge, the patient's BUN and creatinine was 18 and 1.08 respectively. On admission, the patient's white blood cell count was 9200 with 77% segmented neutrophils. On day of discharge, white blood cell count was 6900 with 76% segmented neutrophils. During this hospitalization, the patient's urologist, namely Dr. Giacomo Cabrera, successfully removed the double-J stent at bedside without any difficulty. The patient was discharged home in a stable condition. DISCHARGE MEDICATIONS: 1. Lisinopril 40 mg a day. 2. Isosorbide mononitrate 60 mg a day. 3. Pantoprazole 40 mg daily. 4. Carvedilol 12.5 mg daily. 5. . 6. Mexiletine 150 mg b.i.d. 7. Torsemide 20 mg daily. 8. Nitroglycerin 0.4 mg every 5 minutes p.r.n. chest pain. 9. Hydrocodone 7.5/325 one pill twice a day as needed for severe pain. The patient was instructed to stop aspirin and clopidogrel until further notice. FOLLOWUP INSTRUCTIONS: The patient was instructed to follow up with Dr. Giacomo Cabrera, his urologist on Saturday, January 12, 2019. The patient is instructed to follow up with his primary care physician, namely Dr. Nitin Matthew, within 2 weeks. MD RAKESH FergusonO/MODL /[id number] cc: DO Giacomo Crawford MD
== END 2019-01-10 13:00 | disposition home or self-care (01) ==
LOC: ER 03:41 → ERHOLD 03:52 → IMCU 11:39
PROVIDERS: ADMIT Internal Medicine; ATTEND Internal Medicine
DX: R31.0 Gross hematuria (principal); R10.9 Unspecified abdominal pain; R07.9 Chest pain, unspecified; I25.10 Atherosclerotic heart disease of native coronary artery without angina pectoris; N17.9 Acute kidney failure, unspecified; I50.32 Chronic diastolic (congestive) heart failure; I13.0 Hypertensive heart and chronic kidney disease with heart failure and stage 1 through stage 4 chronic kidney disease, or unspecified chronic kidney disease; N18.3 Chronic kidney disease, stage 3 (moderate); G47.33 Obstructive sleep apnea (adult) (pediatric); E66.9 Obesity, unspecified; Z68.33 Body mass index [BMI] 33.0-33.9, adult; G62.9 Polyneuropathy, unspecified; Z87.442 Personal history of urinary calculi; Z96.0 Presence of urogenital implants; Z95.1 Presence of aortocoronary bypass graft; Z95.5 Presence of coronary angioplasty implant and graft; Z95.0 Presence of cardiac pacemaker; N13.30 Unspecified hydronephrosis; R07.2 Precordial pain
CPT/HCPCS: 36415 ×4; 71045; 74176; 80048; 80053 ×2; 81001; 82550 ×2; 82553 ×2; 83880; 84484 ×2; 85025 ×4; 93005; 96374; 96375; 96376; 99284; G0378 ×4; J0360 ×3; J0696 ×4; J1170 ×2; J2270; J2405; J7030 ×3; S0164 ×3

== ENCOUNTER → 2019-09-28 | Outpatient (CLI) | payer MEDICARE ==
[~2019-09-28] MED LIST changes: +HYDROCODON-ACE1 EA12 PO; +IOPAMIDOL 370 MG/ML 200 ML INFUS..BTL INJ ONE; +SODIUM CHLORIDE 0.9% 250ML 250 ML ONE; +SODIUM CHLORIDE 0.9% 500ML 500 ML ONE; +SODIUM CHLORIDE 0.9% 50ML 50 ML ONE; +TAMSULOSIN HCL0.4 MG PO
[2019-09-28 13:30] LABS: CREATININE, SERUM 1.29 mg/dL (0.72-1.25)
--- NOTE | 2019-09-28 15:04 | Diagnostic Imaging Report ---
EXAMINATION: CT of the chest with contrast, PE protocol. TECHNIQUE: Spiral CT images of the chest were performed from the lung apices through the level of the adrenal glands after the IV administration of 100 cc of Isovue-370. Thin section reconstructions were obtained with special concentration on the pulmonary arteries. COMPARISON: Chest radiograph 01/10/2019, CT abdomen and pelvis without contrast 01/07/2019 CLINICAL HISTORY:Shortness of breath since Thursday, chest pain DISCUSSION: Vasculature: The pulmonary outflow tract is of normal caliber. The main pulmonary artery, right and left pulmonary arteries, and their visualized lobar and segmental branches are patent, without filling defect. There is no ectasia or aneurysmal dilatation of the thoracic aorta. Postsurgical changes of coronary artery bypass with atherosclerotic calcification of the [place] coronary arteries. Atherosclerotic calcification of the tortuous great vessel origins which are otherwise normal in caliber and configuration. Left subclavian approach implantable cardiac device lies in the subcutaneous fat of the left chest wall. Leads terminate in the right atrium and right ventricle. Lungs: Nonspecific foci of groundglass opacity and adjacent hyperlucency, likely related to air trapping. 5 mm juxtapleural nodule right upper lobe series 3 image 37. Mild peripheral juxtapleural reticulation may reflect age-related fibrotic changes. No gross consolidation. Trachea, mainstem bronchi, and lobar bronchi are patent without filling defects. Airways: <The major airways are clear.> Pleura: <There is no evidence of pleural effusion or pneumothorax.> Heart and mediastinum: Cardiomegaly without pericardial effusion. No axillary, hilar, or mediastinal lymphadenopathy Abdomen: Visualized portions of the liver, spleen, pancreas, and adrenal glands are unremarkable. Small sliding hiatal hernia. Bones and soft tissues: Multilevel degenerative disc changes of the lower cervical and thoracic spine. Probable bone island in the T4 vertebral body. Multiple median sternotomy wires. Mild bilateral gynecomastia. Otherwise no focal soft tissue abnormalities. IMPRESSION: No pulmonary embolus to the level of the segmental branch pulmonary arteries. Cardiomegaly with postsurgical changes of coronary artery bypass graft and implantable cardiac device placement, without overt pulmonary edema. Probable mild age-related fibrotic changes in the lung bases. 5 mm solid nodule in the right upper lobe should be assessed for stability by CT scan of the chest without contrast in one year if the patient has a history of tobacco use or is at otherwise increased risk of malignancy per Fleischner Society 2017 guidelines. Signed by: Dr. Devante Holliday M.D. on 09/28/2019 3:01 PM
== END ==
LOC: CT 12:46
PROVIDERS: ATTEND Internal Medicine Interventional Cardiology
DX: R06.02 Shortness of breath (principal); R07.9 Chest pain, unspecified
CPT/HCPCS: 36415; 71260; 82565; 84520; J7040; J7050; Q9967

== ENCOUNTER 2020-11-18 12:30 | Inpatient (IN) | payer MEDICARE ==
[~2020-11-18] VITALS: Ht 188 cm; Wt 126.6 kg
[~2020-11-18 12:30] MED LIST changes: -IOPAMIDOL 370 MG/ML 200 ML INFUS..BTL INJ ONE; -SODIUM CHLORIDE 0.9% 250ML 250 ML ONE; -SODIUM CHLORIDE 0.9% 500ML 500 ML ONE; -SODIUM CHLORIDE 0.9% 50ML 50 ML ONE
[2020-11-18] MEDS ORDERED: SODIUM CHLORIDE 0.9% 1000ML 1,000 ML ONE (13:17)
[2020-11-18] MEDS ORDERED: ASPIRIN 81 MG CHEW TAB ONE (13:29)
[2020-11-18] MEDS ORDERED: ASPIRIN 325 MG TAB PO ONE (13:30)
[2020-11-18] MEDS ORDERED: SODIUM CHLORIDE 0.9% 50ML 50 ML ONE (13:35)
[2020-11-18] MEDS ORDERED: IOPAMIDOL 370 MG/ML 200 ML INFUS..BTL INJ ONE (13:35)
[2020-11-18] MEDS ORDERED: AZITHROMYCIN 500MG/NS 250 ML 250 ML IV ONE (13:45)
[2020-11-18] MEDS ORDERED: DEXAMETHASONE SOD PHOS 10 MG/1 ML VIAL IV NR (13:45)
[2020-11-18] MEDS ORDERED: CEFTRIAXONE SOD 1 GM/NS 50 ML 50 ML IV ONE ×2 (13:45→13:53)
[2020-11-18] MEDS ORDERED: AZITHROMYCIN 500MG/NS 250 ML 250 ML ONE (13:53)
[2020-11-18] MEDS ORDERED: ASPIRIN 81 MG CHEW TAB PO ONE (14:00)
[2020-11-18] MEDS ORDERED: SODIUM CHLORIDE FLUSH 10 ML SYR INJ PRN (14:00)
[2020-11-18] MEDS: CEFTRIAXONE SOD 1 GRAM/0.9% SOD CHL 50ML BAG IV SCH (14:00)
[2020-11-18] MEDS: AZITHROMYCIN 500MG/SOD CHL 0.9% 250ML BAG IV SCH (14:00)
[2020-11-18] MEDS ORDERED: DEXAMETHASONE SOD PHOS INJ 4 MG/ML VIAL ONE (15:15)
[2020-11-18] MEDS ORDERED: FUROSEMIDE INJ 10 MG/ML 2 ML VIAL IV NR (15:30)
[2020-11-18] MEDS ORDERED: FUROSEMIDE INJ 10 MG/ML 4 ML VIAL ONE (15:36)
[2020-11-18 17:40] VITALS: BP 141/66
[2020-11-18 17:50] VITALS: BP 141/66
[2020-11-18 18:07] VITALS: BP 141/66
[2020-11-18 18:44] LABS: CREATINE KINASE MB 0.8 ng/mL (0-5.0)
[2020-11-18 20:00] VITALS: BP 153/69
[2020-11-18] MEDS ORDERED: NITROGLYCERIN 0.4 MG SUBL SL PRN (20:15)
[2020-11-18] MEDS ORDERED: HYDROCODONE/APAP 7.5MG-325MG 1 EA TAB PO PRN (20:15)
[2020-11-18] MEDS ORDERED: VITAMIN C1000 MG PO (20:47)
[2020-11-18] MEDS ORDERED: VITAMIN B COMP1 EAC1 PO (20:47)
[2020-11-18] MEDS ORDERED: ZINC SULFATE220 MG PO (20:47)
[2020-11-18 21:00] VITALS: BP 153/69
[2020-11-18] MEDS ORDERED: LISINOPRIL 2.5 MG TAB PO SCH (21:00)
[2020-11-19] VITALS (7 sets, daily range): BP systolic 153–186; BP diastolic 83–94
[2020-11-19] MEDS ORDERED: VITAMIN B122500 MCG PO (00:44)
[2020-11-19 06:11] LABS: HEMATOCRIT 38.2 % (38.2-49.6); HEMOGLOBIN 12.7 g/dL (14.0-18.0); LYMPHOCYTES # (AUTO) 0.4 (1.0-3.2); LYMPHOCYTES % 8.1 % (18.0-39.1); MEAN CORPUSCULAR HEMOGLOBIN 33.2 pg (28-32); MEAN CORPUSCULAR HGB CONC 33.2 g/dL (31-35); MEAN CORPUSCULAR VOLUME 99.7 fL (81-99); MONOCYTES # (AUTO) 0.2 (0.2-0.8); MONOCYTES % 4.2 % (4.4-11.3); NEUTROPHILS # (AUTO) 4.6 (2.1-6.9); NEUTROPHILS % 87.3 % (38.7-80.0); PLATELET COUNT 127 x10e3/uL (140-360); RED BLOOD COUNT 3.83 x10e6/uL (4.3-5.7); RED CELL DISTRIBUTION WIDTH 13.7 % (11.7-14.4)
[2020-11-19 06:50] LABS: ALBUMIN 3.9 g/dL (3.5-5.0); ALBUMIN/GLOBULIN RATIO 1.3 (0.8-2.0); CALCIUM 8.4 mg/dL (8.4-10.2); CREATININE, SERUM 1.17 mg/dL (0.72-1.25)
[2020-11-19 08:19] LABS: CREATINE KINASE MB 0.9 ng/mL (0-5.0)
[2020-11-19] MEDS: CARVEDILOL 12.5 MG TAB PO SCH ×2 (08:39→16:00)
[2020-11-19] MEDS ORDERED: CLOPIDOGREL BISULFATE 75 MG TAB PO SCH (09:00)
[2020-11-19] MEDS ORDERED: NON-FORMULARY MEDICATION (Mexiletine Hcl 150 MG) PO SCH (09:00)
[2020-11-19] MEDS ORDERED: PANTOPRAZOLE SOD 40 MG TABEC PO SCH (09:00)
[2020-11-19] MEDS ORDERED: AMIODARONE HCL 200 MG TAB PO SCH (09:00)
[2020-11-19] MEDS ORDERED: ASPIRIN 81 MG CHEW TAB PO SCH (09:00)
[2020-11-19] MEDS ORDERED: ASCORBIC ACID 500 MG TAB PO SCH (09:00)
[2020-11-19] MEDS ORDERED: ISOSORBIDE MONONITRATE 30 MG TAB CR PO SCH (09:00)
[2020-11-19] MEDS ORDERED: TORSEMIDE 10 MG TAB PO SCH (09:00)
[2020-11-19] MEDS ORDERED: ZINC SULFATE 50 MG CAP PO SCH (09:00)
[2020-11-19] MEDS ORDERED: VITAMIN B COMPLEX PO SCH (09:00)
[2020-11-19] MEDS ORDERED: CYANOCOBALAMIN 1,000 MCG TAB PO SCH ×2 (09:00)
[2020-11-19] MEDS ORDERED: DEXAMETHASONE SOD PHOS INJ 4 MG/ML VIAL IV SCH (09:30)
[2020-11-19] MEDS: AZITHROMYCIN 500MG/SOD CHL 0.9% 250ML BAG IV SCH (13:52)
[2020-11-19] MEDS ORDERED: SODIUM CHLORIDE 0.9% 250ML 250 ML ONE (14:05)
[2020-11-19] MEDS: CEFTRIAXONE SOD 1 GRAM/0.9% SOD CHL 50ML BAG IV SCH (15:30)
== END 2020-11-19 17:08 | disposition home or self-care (01) | DRG 177 ==
LOC: FSED 12:35 → ERHOLD 14:01 → MED/SURG2 16:36
PROVIDERS: ADMIT Internal Medicine; ATTEND Internal Medicine
DX: U07.1 COVID-19 (principal); J12.82 Pneumonia due to coronavirus disease 2019; I50.32 Chronic diastolic (congestive) heart failure; I13.0 Hypertensive heart and chronic kidney disease with heart failure and stage 1 through stage 4 chronic kidney disease, or unspecified chronic kidney disease; J40 Bronchitis, not specified as acute or chronic; Z95.1 Presence of aortocoronary bypass graft; Z95.5 Presence of coronary angioplasty implant and graft; K21.9 Gastro-esophageal reflux disease without esophagitis; N18.2 Chronic kidney disease, stage 2 (mild); Z87.442 Personal history of urinary calculi; I25.10 Atherosclerotic heart disease of native coronary artery without angina pectoris; E66.9 Obesity, unspecified; Z68.35 Body mass index [BMI] 35.0-35.9, adult; G47.33 Obstructive sleep apnea (adult) (pediatric)
CPT/HCPCS: 36415; 71045; 71260; 80048; 80053; 80076; 81003; 82550; 82553; 83880; 84484; 85025; 85379; 87040; 87400; 93005; 96374; 99284; J0456; J0696; J1100; J1940; J7030; J7050; Q9967; U0002

== ENCOUNTER → 2020-12-21 | Outpatient (CLI) | payer MEDICARE ==
[~2020-12-21] MED LIST changes: +VITAMIN B COMP1 EAC1 PO; +VITAMIN B122500 MCG PO; +VITAMIN C1000 MG PO; +ZINC SULFATE220 MG PO
== END ==
LOC: RAD 15:04
PROVIDERS: ATTEND Internal Medicine
DX: R60.0 Localized edema (principal)
CPT/HCPCS: 93971

== ENCOUNTER 2021-03-01 03:51 | Inpatient (IN) | payer MEDICARE ==
[~2021-03-01] VITALS: Ht 188 cm; Wt 126.6 kg
[2021-03-01] MEDS ORDERED: ACETAMINOPHEN 325 MG TAB PO STA (04:00)
[2021-03-01] MEDS ORDERED: ASPIRIN 81 MG CHEW TAB PO ONE (04:00)
[2021-03-01 04:24] LABS: BASOPHILS % 0.2 % (0.0-1.0); EOSINOPHILS # (AUTO) 0.1 (0.0-0.4); EOSINOPHILS % 0.6 % (0.0-6.0); HEMATOCRIT 38.8 % (38.2-49.6); HEMOGLOBIN 13.2 g/dL (14.0-18.0); LYMPHOCYTES # (AUTO) 0.2 (1.0-3.2); MEAN CORPUSCULAR HEMOGLOBIN 33.1 pg (28-32); MEAN CORPUSCULAR VOLUME 97.2 fL (81-99); MONOCYTES # (AUTO) 0.5 (0.2-0.8); MONOCYTES % 6.2 % (4.4-11.3); NEUTROPHILS # (AUTO) 7.2 (2.1-6.9); NEUTROPHILS % 89.6 % (38.7-80.0); PLATELET COUNT 152 x10e3/uL (140-360); RED BLOOD COUNT 3.99 x10e6/uL (4.3-5.7)
[2021-03-01 04:44] LABS: ALBUMIN 3.9 g/dL (3.5-5.0); ALBUMIN/GLOBULIN RATIO 1.3 (0.8-2.0); ANION GAP 16.6 mmol/L (8-16); CALCIUM 8.4 mg/dL (8.4-10.2); CREATINE KINASE MB 0.5 ng/mL (0-5.0); CREATININE, SERUM 1.36 mg/dL (0.72-1.25); POTASSIUM 3.6 mmol/L (3.5-5.1)
[2021-03-01] MEDS ORDERED: SODIUM CHLORIDE 0.9% 1000ML 1,000 ML IV STA (04:54)
[2021-03-01] MEDS ORDERED: PIPERACILLIN/TAZOBAC 3.375 GM in SODIUM CHLORIDE 0.9% 50ML 50 ML IV ONE (05:15)
[2021-03-01] MEDS ORDERED: CEFEPIME HCL 1 GM VIAL IV SCH (08:30)
[2021-03-01] MEDS: ASPIRIN 81 MG CHEW TAB PO SCH (09:30)
[2021-03-01] MEDS: ZINC SULFATE 220 MG CAP PO SCH (09:30)
[2021-03-01] MEDS: ISOSORBIDE MONONITRATE 30 MG TAB CR PO SCH (09:30)
[2021-03-01] MEDS: CLOPIDOGREL BISULFATE 75 MG TAB PO SCH (09:30)
[2021-03-01] MEDS: CYANOCOBALAMIN 1,000 MCG TAB PO SCH (09:30)
[2021-03-01] MEDS: CARVEDILOL 12.5 MG TAB PO SCH ×2 (09:30→17:10)
[2021-03-01] MEDS: CEFEPIME HCL 1GM 1 GM in SODIUM CHLORIDE 0.9% 50ML 50 ML IV SCH ×2 (09:30→21:55)
[2021-03-01] MEDS: ASCORBIC ACID 500 MG TAB PO SCH (09:30)
[2021-03-01] MEDS: PANTOPRAZOLE SOD 40 MG TABEC PO SCH (09:30)
[2021-03-01] MEDS: FUROSEMIDE INJ 10 MG/ML 4 ML VIAL IV SCH ×2 (09:46→21:55)
[2021-03-01] MEDS: AMIODARONE HCL 200 MG TAB PO SCH (09:47)
[2021-03-01] MEDS: VANCOMYCIN 1GM/NS 250 ML 250 ML IV SCH ×2 (10:03→22:34)
[2021-03-01] MEDS ORDERED: PIPERACILLIN/TAZOBAC 3.375 GM in SODIUM CHLORIDE 0.9% 50ML 50 ML IV SCH (12:00)
[2021-03-01] MEDS ORDERED: LOPERAMIDE HCL 2 MG CAP PO ONE (12:30)
[2021-03-01] MEDS ORDERED: LOPERAMIDE HCL 2 MG CAP ONE (12:40)
[2021-03-01] MEDS: HYDROCODONE/APAP 7.5MG-325MG 1 EA TAB PO PRN ×2 (15:50→22:00)
[2021-03-01 16:04] VITALS: BP 121/58
[2021-03-01 20:00] VITALS: BP 131/69
[2021-03-01] MEDS: LISINOPRIL 2.5 MG TAB PO SCH (21:55)
[2021-03-01] MEDS ORDERED: SODIUM CHLORIDE 0.9% 250ML 250 ML ONE (22:07)
[2021-03-01 22:24] VITALS: BP 131/69
[2021-03-01 22:56] LABS: CLARITY,URINE CLEAR (CLEAR); COLOR,URINE YELLOW (YELLOW); KETONES,URINE NEGATIVE (NEGATIVE); LEUKOCYTE ESTERASE ,URINE NEGATIVE (NEGATIVE); NITRITE,URINE NEGATIVE (NEGATIVE); PROTEIN,URINE DIPSTICK NEGATIVE (NEGATIVE); URINE UROBILINOGEN 0.2 mg/dL (0.2 - 1)
[2021-03-01 23:03] LABS: BACTERIA,URINE FEW /HPF; EPITHELIAL CELLS,URINE FEW /LPF; WBC,URINE (MAN) 0-5 /HPF (0-5)
[2021-03-01 23:04] LABS: MUCUS,URINE FEW (RARE)
[2021-03-02] VITALS (8 sets, daily range): BP systolic 119–156; BP diastolic 53–71
[2021-03-02 06:34] LABS: BASOPHILS % 0.4 % (0.0-1.0); EOSINOPHILS # (AUTO) 0.3 (0.0-0.4); EOSINOPHILS % 4.5 % (0.0-6.0); HEMATOCRIT 37.1 % (38.2-49.6); HEMOGLOBIN 12.5 g/dL (14.0-18.0); LYMPHOCYTES # (AUTO) 0.4 (1.0-3.2); LYMPHOCYTES % 7.7 % (18.0-39.1); MEAN CORPUSCULAR HEMOGLOBIN 33.1 pg (28-32); MEAN CORPUSCULAR HGB CONC 33.7 g/dL (31-35); MEAN CORPUSCULAR VOLUME 98.1 fL (81-99); MONOCYTES # (AUTO) 0.6 (0.2-0.8); MONOCYTES % 10.4 % (4.4-11.3); NEUTROPHILS # (AUTO) 4.3 (2.1-6.9); NEUTROPHILS % 76.6 % (38.7-80.0); PLATELET COUNT 124 x10e3/uL (140-360); RED BLOOD COUNT 3.78 x10e6/uL (4.3-5.7); RED CELL DISTRIBUTION WIDTH 14.2 % (11.7-14.4)
[2021-03-02 06:55] LABS: ANION GAP 14.2 mmol/L (8-16); CALCIUM 7.9 mg/dL (8.4-10.2); CREATININE, SERUM 1.19 mg/dL (0.72-1.25); POTASSIUM 3.2 mmol/L (3.5-5.1)
[2021-03-02] MEDS: PANTOPRAZOLE SOD 40 MG TABEC PO SCH (09:10)
[2021-03-02] MEDS: CEFEPIME HCL 1GM 1 GM in SODIUM CHLORIDE 0.9% 50ML 50 ML IV SCH ×2 (09:11→20:14)
[2021-03-02] MEDS: ASPIRIN 81 MG CHEW TAB PO SCH (09:11)
[2021-03-02] MEDS: FUROSEMIDE INJ 10 MG/ML 4 ML VIAL IV SCH ×2 (09:11→20:14)
[2021-03-02] MEDS: CARVEDILOL 12.5 MG TAB PO SCH ×2 (09:12→17:01)
[2021-03-02] MEDS: AMIODARONE HCL 200 MG TAB PO SCH (09:12)
[2021-03-02] MEDS: ISOSORBIDE MONONITRATE 30 MG TAB CR PO SCH (09:13)
[2021-03-02] MEDS: CYANOCOBALAMIN 1,000 MCG TAB PO SCH (09:13)
[2021-03-02] MEDS: CLOPIDOGREL BISULFATE 75 MG TAB PO SCH (09:13)
[2021-03-02] MEDS: ASCORBIC ACID 500 MG TAB PO SCH (09:14)
[2021-03-02] MEDS: ZINC SULFATE 220 MG CAP PO SCH (09:14)
[2021-03-02] MEDS: VANCOMYCIN 1GM/NS 250 ML 250 ML IV SCH ×2 (12:04→21:30)
[2021-03-02] MEDS ORDERED: POTASSIUM CHLORIDE 20 MEQ TAB CR PO ONE (16:00)
[2021-03-02] MEDS: LISINOPRIL 2.5 MG TAB PO SCH (20:14)
[2021-03-02] MEDS: DIPHENHYDRAMINE HCL 25 MG CAP PO PRN (21:30)
[2021-03-02] MEDS: HYDROCODONE/APAP 7.5MG-325MG 1 EA TAB PO PRN (21:45)
[2021-03-03] VITALS (11 sets, daily range): BP systolic 105–166; BP diastolic 62–88
[2021-03-03 07:01] LABS: ANION GAP 15.4 mmol/L (8-16); BLOOD UREA NITROGEN 13 mg/dL (7-26); BUN/CREATININE RATIO 13 (6-25); CARBON DIOXIDE 25 mmol/L (22-29); CHLORIDE 107 mmol/L (98-107); CREATININE, SERUM 1.04 mg/dL (0.72-1.25); EST GLOMERULAR FILTRATION RATE > 60 ML/MIN (60-); GLUCOSE 86 mg/dL (74-118); POTASSIUM 3.4 mmol/L (3.5-5.1); SODIUM 144 mmol/L (136-145)
[2021-03-03] MEDS: ASPIRIN 81 MG CHEW TAB PO SCH (08:52)
[2021-03-03] MEDS: PANTOPRAZOLE SOD 40 MG TABEC PO SCH (08:52)
[2021-03-03] MEDS: CEFEPIME HCL 1GM 1 GM in SODIUM CHLORIDE 0.9% 50ML 50 ML IV SCH ×2 (08:52→20:30)
[2021-03-03] MEDS: AMIODARONE HCL 200 MG TAB PO SCH (08:53)
[2021-03-03] MEDS: CARVEDILOL 12.5 MG TAB PO SCH ×2 (08:54→17:30)
[2021-03-03] MEDS: POTASSIUM CHLORIDE 20 MEQ TAB CR PO SCH (08:56)
[2021-03-03] MEDS: ISOSORBIDE MONONITRATE 30 MG TAB CR PO SCH (08:56)
[2021-03-03] MEDS: CLOPIDOGREL BISULFATE 75 MG TAB PO SCH (08:57)
[2021-03-03] MEDS: CYANOCOBALAMIN 1,000 MCG TAB PO SCH (08:59)
[2021-03-03] MEDS: ASCORBIC ACID 500 MG TAB PO SCH (09:00)
[2021-03-03] MEDS: ZINC SULFATE 220 MG CAP PO SCH (09:00)
[2021-03-03] MEDS: FUROSEMIDE INJ 10 MG/ML 4 ML VIAL IV SCH ×2 (09:15→20:54)
[2021-03-03] MEDS: NITROGLYCERIN 0.4 MG SUBL SL PRN ×3 (09:34→09:43)
[2021-03-03] MEDS: VANCOMYCIN 1GM/NS 250 ML 250 ML IV SCH ×2 (09:57→23:28)
[2021-03-03] MEDS: HYDROCODONE/APAP 7.5MG-325MG 1 EA TAB PO PRN (10:25)
[2021-03-03] MEDS: DIPHENHYDRAMINE HCL 25 MG CAP PO PRN (10:25)
[2021-03-03] MEDS ORDERED: MAGNESIUM/ALUMINUM/SIMETHICONE 30 ML UDC PO PRN (10:30)
[2021-03-03 11:03] LABS: CREATINE KINASE MB 0.8 ng/mL (0-5.0)
[2021-03-03 17:48] LABS: CREATINE KINASE MB 0.9 ng/mL (0-5.0)
[2021-03-03] MEDS: LISINOPRIL 2.5 MG TAB PO SCH (20:55)
[2021-03-03 21:57] LABS: CREATINE KINASE MB 1.2 ng/mL (0-5.0)
[2021-03-04] VITALS (9 sets, daily range): BP systolic 117–167; BP diastolic 56–78
[2021-03-04] MEDS: DIPHENHYDRAMINE HCL 25 MG CAP PO PRN (01:29)
[2021-03-04] MEDS: HYDROCODONE/APAP 7.5MG-325MG 1 EA TAB PO PRN (01:29)
[2021-03-04 05:46] LABS: BASOPHILS % 0.4 % (0.0-1.0); EOSINOPHILS # (AUTO) 0.2 (0.0-0.4); EOSINOPHILS % 4.8 % (0.0-6.0); HEMATOCRIT 38.3 % (38.2-49.6); HEMOGLOBIN 13.1 g/dL (14.0-18.0); LYMPHOCYTES # (AUTO) 1.2 (1.0-3.2); LYMPHOCYTES % 26.6 % (18.0-39.1); MEAN CORPUSCULAR HEMOGLOBIN 33.2 pg (28-32); MEAN CORPUSCULAR HGB CONC 34.2 g/dL (31-35); MEAN CORPUSCULAR VOLUME 97.2 fL (81-99); MONOCYTES # (AUTO) 0.5 (0.2-0.8); MONOCYTES % 10.6 % (4.4-11.3); NEUTROPHILS # (AUTO) 2.7 (2.1-6.9); NEUTROPHILS % 57.4 % (38.7-80.0); PLATELET COUNT 154 x10e3/uL (140-360); RED BLOOD COUNT 3.94 x10e6/uL (4.3-5.7); RED CELL DISTRIBUTION WIDTH 13.8 % (11.7-14.4)
[2021-03-04 06:01] LABS: ALBUMIN 3.6 g/dL (3.5-5.0); ALBUMIN/GLOBULIN RATIO 1.2 (0.8-2.0); ANION GAP 14.4 mmol/L (8-16); CALCIUM 8.3 mg/dL (8.4-10.2); CREATININE, SERUM 1.2 mg/dL (0.72-1.25); POTASSIUM 3.4 mmol/L (3.5-5.1)
[2021-03-04] MEDS ORDERED: POTASSIUM CHLORIDE 10MEQ EA PO ONE ×2 (06:30→08:30)
[2021-03-04] MEDS: AMIODARONE HCL 200 MG TAB PO SCH (08:52)
[2021-03-04] MEDS: METHYLPREDNISOLONE SOD SUCC 40 MG/ML VIAL 1ML IV SCH (08:52)
[2021-03-04] MEDS: PANTOPRAZOLE SOD 40 MG TABEC PO SCH (08:52)
[2021-03-04] MEDS: CARVEDILOL 12.5 MG TAB PO SCH ×2 (08:53→16:20)
[2021-03-04] MEDS: ISOSORBIDE MONONITRATE 30 MG TAB CR PO SCH (08:54)
[2021-03-04] MEDS: ASCORBIC ACID 500 MG TAB PO SCH (08:55)
[2021-03-04] MEDS: CLOPIDOGREL BISULFATE 75 MG TAB PO SCH (08:55)
[2021-03-04] MEDS: ASPIRIN 81 MG CHEW TAB PO SCH (08:56)
[2021-03-04] MEDS: ZINC SULFATE 220 MG CAP PO SCH (08:56)
[2021-03-04] MEDS: CYANOCOBALAMIN 1,000 MCG TAB PO SCH (08:56)
[2021-03-04] MEDS: FUROSEMIDE INJ 10 MG/ML 4 ML VIAL IV SCH (08:57)
[2021-03-04] MEDS: VANCOMYCIN 1GM/NS 250 ML 250 ML IV SCH ×2 (09:00→21:49)
[2021-03-04] MEDS: CEFEPIME HCL 1GM 1 GM in SODIUM CHLORIDE 0.9% 50ML 50 ML IV SCH ×2 (09:02→20:31)
[2021-03-04] MEDS: POTASSIUM CHLORIDE 20 MEQ TAB CR PO SCH (09:03)
[2021-03-04] MEDS: GABAPENTIN 300 MG CAP PO SCH (16:19)
[2021-03-04] MEDS: LISINOPRIL 2.5 MG TAB PO SCH (20:31)
[2021-03-05] VITALS: BP 154/79
[2021-03-05 04:00] VITALS: BP 178/84
[2021-03-05 06:18] LABS: BASOPHILS % 0.1 % (0.0-1.0); HEMATOCRIT 41.9 % (38.2-49.6); HEMOGLOBIN 13.8 g/dL (14.0-18.0); LYMPHOCYTES # (AUTO) 0.7 (1.0-3.2); LYMPHOCYTES % 7.4 % (18.0-39.1); MEAN CORPUSCULAR HEMOGLOBIN 32.5 pg (28-32); MEAN CORPUSCULAR HGB CONC 32.9 g/dL (31-35); MEAN CORPUSCULAR VOLUME 98.8 fL (81-99); MONOCYTES # (AUTO) 0.5 (0.2-0.8); MONOCYTES % 5.5 % (4.4-11.3); NEUTROPHILS # (AUTO) 8.1 (2.1-6.9); NEUTROPHILS % 86.6 % (38.7-80.0); PLATELET COUNT 181 x10e3/uL (140-360); RED BLOOD COUNT 4.24 x10e6/uL (4.3-5.7); RED CELL DISTRIBUTION WIDTH 13.8 % (11.7-14.4)
[2021-03-05 06:40] LABS: ANION GAP 15.2 mmol/L (8-16); BLOOD UREA NITROGEN 27 mg/dL (7-26); BUN/CREATININE RATIO 24 (6-25); CALCIUM 9.2 mg/dL (8.4-10.2); CARBON DIOXIDE 27 mmol/L (22-29); CHLORIDE 104 mmol/L (98-107); CREATININE, SERUM 1.13 mg/dL (0.72-1.25); EST GLOMERULAR FILTRATION RATE > 60 ML/MIN (60-); GLUCOSE 161 mg/dL (74-118); POTASSIUM 4.2 mmol/L (3.5-5.1); SODIUM 142 mmol/L (136-145)
[2021-03-05 07:40] VITALS: BP 145/83
[2021-03-05 08:03] VITALS: BP 145/83
[2021-03-05] MEDS: PANTOPRAZOLE SOD 40 MG TABEC PO SCH (08:19)
[2021-03-05] MEDS: AMIODARONE HCL 200 MG TAB PO SCH (08:20)
[2021-03-05] MEDS: ASPIRIN 81 MG CHEW TAB PO SCH (08:20)
[2021-03-05] MEDS: FUROSEMIDE INJ 10 MG/ML 4 ML VIAL IV SCH (08:20)
[2021-03-05] MEDS: METHYLPREDNISOLONE SOD SUCC 40 MG/ML VIAL 1ML IV SCH (08:20)
[2021-03-05] MEDS: CEFEPIME HCL 1GM 1 GM in SODIUM CHLORIDE 0.9% 50ML 50 ML IV SCH (08:20)
[2021-03-05] MEDS: CARVEDILOL 12.5 MG TAB PO SCH (08:20)
[2021-03-05] MEDS: ZINC SULFATE 220 MG CAP PO SCH (08:21)
[2021-03-05] MEDS: POTASSIUM CHLORIDE 20 MEQ TAB CR PO SCH (08:21)
[2021-03-05] MEDS: ASCORBIC ACID 500 MG TAB PO SCH (08:21)
[2021-03-05] MEDS: ISOSORBIDE MONONITRATE 30 MG TAB CR PO SCH (08:21)
[2021-03-05] MEDS: CLOPIDOGREL BISULFATE 75 MG TAB PO SCH (08:21)
[2021-03-05] MEDS: GABAPENTIN 300 MG CAP PO SCH (08:21)
[2021-03-05] MEDS: CYANOCOBALAMIN 1,000 MCG TAB PO SCH (08:21)
[2021-03-05] MEDS: VANCOMYCIN 1GM/NS 250 ML 250 ML IV SCH (09:00)
[2021-03-05] MEDS ORDERED: PREDNISONE20 MG PO (10:10)
[2021-03-05 12:00] VITALS: BP 125/68
== END 2021-03-05 11:49 | disposition home or self-care (01) | DRG 871 ==
LOC: ER 04:26 → ERHOLD 06:03 → MED/SURG2 15:06
PROVIDERS: ADMIT Internal Medicine; ATTEND Internal Medicine
DX: A41.9 Sepsis, unspecified organism (principal); I50.33 Acute on chronic diastolic (congestive) heart failure; J18.9 Pneumonia, unspecified organism; L03.116 Cellulitis of left lower limb; I13.0 Hypertensive heart and chronic kidney disease with heart failure and stage 1 through stage 4 chronic kidney disease, or unspecified chronic kidney disease; N18.30 Chronic kidney disease, stage 3 unspecified; R65.20 Severe sepsis without septic shock; E66.01 Morbid (severe) obesity due to excess calories; I25.2 Old myocardial infarction; E78.5 Hyperlipidemia, unspecified; Z95.1 Presence of aortocoronary bypass graft; Z95.810 Presence of automatic (implantable) cardiac defibrillator; G62.9 Polyneuropathy, unspecified; Z95.5 Presence of coronary angioplasty implant and graft; W06.XXXA Fall from bed, initial encounter; Y93.89 Activity, other specified; Y92.013 Bedroom of single-family (private) house as the place of occurrence of the external cause; M47.812 Spondylosis without myelopathy or radiculopathy, cervical region; Z87.442 Personal history of urinary calculi; I25.10 Atherosclerotic heart disease of native coronary artery without angina pectoris; I87.2 Venous insufficiency (chronic) (peripheral); E66.9 Obesity, unspecified; Z68.35 Body mass index [BMI] 35.0-35.9, adult; Z20.822 Contact with and (suspected) exposure to COVID-19; M10.072 Idiopathic gout, left ankle and foot; M10.021 Idiopathic gout, right elbow
CPT/HCPCS: 36415; 70450; 71045; 72125; 80048; 80053; 80202; 81001; 82550; 82553; 83605; 83735; 83880; 84484; 84550; 85025; 87040; 87400; 93005; 93041; 93306; 99285; J0692; J1940; J2543; J2920; J3370; J7030; J7050; U0002

== ENCOUNTER → 2023-04-07 | Day surgery (SDC) | payer MEDICARE ==
[2023-04-03 10:09] LABS: BASOPHILS % 0.6 % (0.0-1.0); EOSINOPHILS # (AUTO) 0.2 (0.0-0.4); EOSINOPHILS % 3.3 % (0.0-6.0); HEMOGLOBIN 13.6 g/dL (14.0-18.0); LYMPHOCYTES # (AUTO) 1.1 (1.0-3.2); LYMPHOCYTES % 15.8 % (18.0-39.1); MEAN CORPUSCULAR HEMOGLOBIN 32.5 pg (28-32); MEAN CORPUSCULAR HGB CONC 33.2 g/dL (31-35); MEAN CORPUSCULAR VOLUME 97.9 fL (81-99); MONOCYTES # (AUTO) 0.4 (0.2-0.8); MONOCYTES % 6.2 % (4.4-11.3); NEUTROPHILS # (AUTO) 5.1 (2.1-6.9); NEUTROPHILS % 73.8 % (38.7-80.0); PLATELET COUNT 156 x10e3/uL (140-360); RED BLOOD COUNT 4.19 x10e6/uL (4.3-5.7); RED CELL DISTRIBUTION WIDTH 13.7 % (11.7-14.4)
[2023-04-03 12:20] LABS: ANION GAP 13.2 mmol/L (8-16); BLOOD UREA NITROGEN 18 mg/dL (7-26); BUN/CREATININE RATIO 16 (6-25); CALCIUM 8.9 mg/dL (8.4-10.2); CARBON DIOXIDE 25 mmol/L (22-29); CHLORIDE 107 mmol/L (98-107); CREATININE, SERUM 1.15 mg/dL (0.72-1.25); GLUCOSE 115 mg/dL (74-118); POTASSIUM 4.2 mmol/L (3.5-5.1); SODIUM 141 mmol/L (136-145)
[2023-04-03 12:21] LABS: ALANINE AMINOTRANSFERASE 15 IU/L (0-55); ALBUMIN 3.5 g/dL (3.5-5.0); ALBUMIN/GLOBULIN RATIO 1.1 (0.8-2.0); ALKALINE PHOSPHATASE 102 IU/L (40-150)
[2023-04-07] VITALS (9 sets, daily range): BP systolic 132–171; BP diastolic 63–84; PULSE 68–72; RESP 10–24; TEMP 97.2; O2SAT 91–100
[~2023-04-07] VITALS: Ht 188 cm; Wt 117.9 kg
[~2023-04-07] MED LIST changes: +ALLOPURINOL300 MG PO; +ALPRAZOLAM 0.5 MG TAB ONE; +AMLODIPINE BESYL5 MG PO; +BENICAR20 MG PO; +DIPHENHYDRAMINE HCL 25 MG CAP ONE; +FENTANYL CITRATE/PF 100MCG/2 ML INJ ONE; +HEPARIN SOD (PORCINE) 1000 UNIT/ML 30ML ONE; +HEPARIN SOD/SOD CHLORIDE 1,000 ML ONE; +IOPAMIDOL 370 MG/ML 100 ML INFUS..BTL INJ ONE; +LASIX20 MG PO; +LIDOCAINE HCL 1% LOCAL INJ 20 ML VIAL ONE; +MIDAZOLAM HCL 2 MG/2 ML VIAL ONE; +PREDNISONE20 MG PO; +SODIUM CHLORIDE 0.9% 1000ML 1,000 ML ONE; +VITAMIN D350 MCG PO; +XARELTO20 MG PO
== END | disposition home or self-care (01) ==
LOC: CATH LAB 10:49
PROVIDERS: ATTEND Internal Medicine Interventional Cardiology
DX: I25.708 Atherosclerosis of coronary artery bypass graft(s), unspecified, with other forms of angina pectoris (principal); I11.0 Hypertensive heart disease with heart failure; I50.20 Unspecified systolic (congestive) heart failure; I48.0 Paroxysmal atrial fibrillation; E78.2 Mixed hyperlipidemia; E66.9 Obesity, unspecified; Z88.6 Allergy status to analgesic agent; Z01.812 Encounter for preprocedural laboratory examination; Z20.822 Contact with and (suspected) exposure to COVID-19; Z79.02 Long term (current) use of antithrombotics/antiplatelets; Z79.899 Other long term (current) drug therapy; Z68.33 Body mass index [BMI] 33.0-33.9, adult; Z95.810 Presence of automatic (implantable) cardiac defibrillator; Z95.1 Presence of aortocoronary bypass graft
CPT/HCPCS: 0223U; 36415; 80053; 85025; 93459; C1760 ×2; C1769; J1644; J2001; J2250; J3010; J7030; Q9967; 93454; 99152; 99153